=== PATIENT | male | born 1980 ===

== ENCOUNTER 2021-01-23 15:17 | Outpatient (REF) | payer OTHER, SELFPAY ==
[2021-01-23 15:41] LABS: MANUAL DIFF FLAG NO
[2021-01-23 16:15] LABS: Basophils Absolute Auto 0.1 X10*3/uL (0.0-0.2); Basophils Percent Auto 0.5 % (0-2); Eosinophils Absolute Auto 0.4 X10*3/uL (0.0-0.4); Eosinophils Percent Auto 3.7 % (0-4); Hematocrit 45.4 % (42.0-52.0); Hemoglobin 14.3 g/dl (14.0-18.0); Imm Gran Abs Auto 0.03 X10*3/uL (0.00-0.03); Imm Gran Pct Auto 0.3 % (0.0-0.4); Lymphocytes Absolute Auto 4.1 X10*3/uL (1.2-4.9); Lymphocytes Percent Auto 43.1 % (20-40); Mean Corpuscular HGB Conc 31.5 g/dl (31.0-36.0); Mean Corpuscular Hemoglobin 25.8 pg (27.0-33.0); Mean Corpuscular Volume 81.8 fL (80.0-98.0); Mean Platelet Volume 11.7 fL (9.4-12.4); Monocytes Percent Auto 10.8 % (2-11); Neutrophils Percent Auto 41.6 % (45-73); Platelet Count 186 X10*3/uL (160-400); Red Blood Count 5.55 X10*6/uL (4.60-5.80); Red Cell Distribution Width 13.2 % (11.0-16.0); White Blood Count 9.6 X10*3/uL (4.8-10.8)
[2021-01-23 16:20] LABS: Appearance Urine HAZY; Color Urine YELLOW; Glucose Urine UA NEG (NEG); Leukocyte Esterase Urine NEG (NEG); Nitrite Urine NEG (NEG); UACC Culture Trigger NO; Urine Blood TRACE (NEG); Urine Ketones NEG (NEG); Urine Protein NEG (NEG-TRACE)
[2021-01-23 16:30] LABS: Bacteria Urine TRACE /LPF; RBC Urine 0-2 /HPF (0); WBC Urine 0 /HPF (0-4)
[2021-01-23 16:42] LABS: Estimated Average Glucose 151 mg/dL; Hemoglobin A1c % 6.9 %
[2021-01-23 16:50] LABS: Alanine Aminotransferase 48 U/L (0-40); Albumin Level 4.2 g/dL (3.5-5.0); Alkaline Phosphatase 87 U/L (39-117); Aspartate Amino Transferase 37 U/L (5-37); Bilirubin Total 0.4 mg/dL (0.0-1.0); Blood Urea Nitrogen 7 mg/dL (9-16); C Reactive Protein 1.04 mg/dL (< or = 0.50); Calcium 9.5 mg/dL (8.4-10.2); Cholesterol 156 mg/dL; Estimated Glomerular Filt Rate > 60; Glucose Fasting 105 mg/dL (60-99); HDL Cholesterol 30 mg/dL; LDL Cholesterol Calculated 93 mg/dl; Total Protein 7.7 g/dL (6.5-8.0); Triglycerides 169 mg/dL
[2021-01-23 17:00] LABS: Anion Gap 14 (12-20); Carbon Dioxide 26 mmol/L (22-29); Chloride 103 mmol/L (96-108); Erythrocyte Sedimentation Rate 9 MM/HR (0-15); Potassium 4.1 mmol/L (3.3-5.1); Sodium 139 mmol/L (135-145)
[2021-01-23 17:05] LABS: TSH reflex Free T4 1.64 uIU/mL (0.32-4.0); Vitamin D 25-OH Total 6.5 ng/mL (>30)
== END 2021-01-23 15:18 | disposition home or self-care (01) ==
LOC: HO.LAB 15:17
PROVIDERS: PCP Internal Medicine; Visit Provider Internal Medicine
DX: M19.90 Unspecified osteoarthritis, unspecified site (principal); M51.06 Intervertebral disc disorders with myelopathy, lumbar region; R60.0 Localized edema; I10 Essential (primary) hypertension; E78.00 Pure hypercholesterolemia, unspecified; R73.01 Impaired fasting glucose; E55.9 Vitamin D deficiency, unspecified
CPT/HCPCS: 36415; 80053; 80061; 81001; 82306; 83036; 84443; 85025; 85652; 86140

== ENCOUNTER 2021-05-24 14:12 | Outpatient (REF) | payer OTHER, SELFPAY ==
[2021-05-24 14:30] LABS: MANUAL DIFF FLAG NO
[2021-05-24 14:56] LABS: Basophils Absolute Auto 0.1 X10*3/uL (0.0-0.2); Basophils Percent Auto 0.6 % (0-2); Eosinophils Absolute Auto 0.3 X10*3/uL (0.0-0.4); Eosinophils Percent Auto 3.1 % (0-4); Hematocrit 44.1 % (42.0-52.0); Hemoglobin 13.9 g/dl (14.0-18.0); Imm Gran Abs Auto 0.08 X10*3/uL (0.00-0.03); Imm Gran Pct Auto 0.8 % (0.0-0.4); Lymphocytes Absolute Auto 4.8 X10*3/uL (1.2-4.9); Lymphocytes Percent Auto 45.3 % (20-40); Mean Corpuscular HGB Conc 31.5 g/dl (31.0-36.0); Mean Corpuscular Hemoglobin 26.1 pg (27.0-33.0); Mean Corpuscular Volume 82.7 fL (80.0-98.0); Mean Platelet Volume 11.3 fL (9.4-12.4); Monocytes Absolute Auto 1.1 X10*3/uL (0.1-1.2); Neutrophils Absolute Auto 4.3 x10*3/uL (2.0-8.3); Neutrophils Percent Auto 40.2 % (45-73); Platelet Count 200 X10*3/uL (160-400); Red Blood Count 5.33 X10*6/uL (4.60-5.80); White Blood Count 10.6 X10*3/uL (4.8-10.8)
[2021-05-24 15:05] LABS: Estimated Average Glucose 154 mg/dL
[2021-05-24 15:28] LABS: Alanine Aminotransferase 43 U/L (0-40); Alkaline Phosphatase 81 U/L (39-117); Anion Gap 12 (12-20); Aspartate Amino Transferase 29 U/L (5-37); Bilirubin Total 0.2 mg/dL (0.0-1.0); Blood Urea Nitrogen 8 mg/dL (9-16); Calcium 9.1 mg/dL (8.4-10.2); Carbon Dioxide 29 mmol/L (22-29); Chloride 102 mmol/L (96-108); Cholesterol 160 mg/dL; Estimated Glomerular Filt Rate > 60; Glucose Fasting 115 mg/dL (60-99); HDL Cholesterol 30 mg/dL; LDL Cholesterol Calculated 82 mg/dl; Potassium 4.5 mmol/L (3.3-5.1); Sodium 138 mmol/L (135-145); Total Protein 7.4 g/dL (6.5-8.0); Triglycerides 243 mg/dL
[2021-05-24 15:29] LABS: Erythrocyte Sedimentation Rate 7 MM/HR (0-15)
[2021-05-24 15:52] LABS: TSH reflex Free T4 1.71 uIU/mL (0.32-4.0)
== END 2021-05-24 14:13 | disposition home or self-care (01) ==
LOC: HO.LAB 14:12
PROVIDERS: PCP Internal Medicine; Visit Provider Internal Medicine
DX: E11.9 Type 2 diabetes mellitus without complications (principal); E78.00 Pure hypercholesterolemia, unspecified; I10 Essential (primary) hypertension; E55.9 Vitamin D deficiency, unspecified; M19.91 Primary osteoarthritis, unspecified site; M51.36 Other intervertebral disc degeneration, lumbar region
CPT/HCPCS: 36415; 80053; 80061; 82306; 83036; 84443; 85025; 85652

== ENCOUNTER 2021-05-27 14:18 | Outpatient (REF) | payer OTHER, SELFPAY ==
[2021-05-27 15:09] LABS: Creatinine Urine 156.06 mg/dL; Microalbum/Creatinine Ratio Ur 3.2 ug/mg cr
[2021-05-27 15:54] LABS: Appearance Urine CLEAR; Color Urine YELLOW; Glucose Urine UA NEG (NEG); Leukocyte Esterase Urine NEG (NEG); Nitrite Urine NEG (NEG); Specific Gravity - Urine 1.025 (1.005-1.025); Urine Blood NEG (NEG); Urine Ketones NEG (NEG); Urine Protein NEG (NEG-TRACE)
== END 2021-05-27 14:19 | disposition home or self-care (01) ==
LOC: HO.LNP 14:18
PROVIDERS: Visit Provider Internal Medicine
DX: I10 Essential (primary) hypertension (principal); E11.9 Type 2 diabetes mellitus without complications
CPT/HCPCS: 81003; 82043

== ENCOUNTER 2021-08-28 13:51 | Outpatient (REF) | payer OTHER, SELFPAY ==
[2021-08-28 14:02] LABS: MANUAL DIFF FLAG NO
[2021-08-28 14:56] LABS: Basophils Absolute Auto 0.1 X10*3/uL (0.0-0.2); Basophils Percent Auto 0.6 % (0-2); Eosinophils Absolute Auto 0.3 X10*3/uL (0.0-0.4); Eosinophils Percent Auto 2.2 % (0-4); Hematocrit 43.4 % (42.0-52.0); Hemoglobin 13.7 g/dl (14.0-18.0); Imm Gran Abs Auto 0.07 X10*3/uL (0.00-0.03); Imm Gran Pct Auto 0.6 % (0.0-0.4); Lymphocytes Absolute Auto 4.9 X10*3/uL (1.2-4.9); Lymphocytes Percent Auto 42.1 % (20-40); Mean Corpuscular HGB Conc 31.6 g/dl (31.0-36.0); Mean Corpuscular Hemoglobin 25.5 pg (27.0-33.0); Mean Corpuscular Volume 80.7 fL (80.0-98.0); Mean Platelet Volume 11.3 fL (9.4-12.4); Monocytes Percent Auto 8.5 % (2-11); Neutrophils Absolute Auto 5.4 x10*3/uL (2.0-8.3); Platelet Count 190 X10*3/uL (160-400); Red Blood Count 5.38 X10*6/uL (4.60-5.80); Red Cell Distribution Width 13.2 % (11.0-16.0); White Blood Count 11.7 X10*3/uL (4.8-10.8)
[2021-08-28 15:08] LABS: Estimated Average Glucose 209 mg/dL; Hemoglobin A1c % 8.9 %
[2021-08-28 15:22] LABS: Alanine Aminotransferase 73 U/L (0-40); Albumin Level 4.2 g/dL (3.5-5.0); Alkaline Phosphatase 90 U/L (39-117); Anion Gap 14 (12-20); Aspartate Amino Transferase 48 U/L (5-37); Bilirubin Total 0.4 mg/dL (0.0-1.0); Blood Urea Nitrogen 15 mg/dL (9-16); Calcium 9.5 mg/dL (8.4-10.2); Carbon Dioxide 28 mmol/L (22-29); Chloride 98 mmol/L (96-108); Cholesterol 156 mg/dL; Estimated Glomerular Filt Rate > 60; Glucose Fasting 155 mg/dL (60-99); HDL Cholesterol 34 mg/dL; LDL Cholesterol Calculated 89 mg/dl; Potassium 4.4 mmol/L (3.3-5.1); Sodium 136 mmol/L (135-145); Total Protein 7.9 g/dL (6.5-8.0); Triglycerides 167 mg/dL
[2021-08-28 17:48] LABS: Vitamin D 25-OH Total 14.3 ng/mL (>30)
== END 2021-08-28 13:52 | disposition home or self-care (01) ==
LOC: HO.LAB 13:51
PROVIDERS: PCP Internal Medicine; Visit Provider Internal Medicine
DX: E11.9 Type 2 diabetes mellitus without complications (principal); I10 Essential (primary) hypertension; E78.00 Pure hypercholesterolemia, unspecified; E55.9 Vitamin D deficiency, unspecified
CPT/HCPCS: 36415; 80053; 80061; 82306; 83036; 84443; 85025

== ENCOUNTER 2022-05-14 10:54 | Outpatient (REF) | payer OTHER, SELFPAY ==
[2022-05-14 11:46] LABS: Appearance Urine Clear; Color Urine Yellow; Glucose Urine UA Negative (Negative); Leukocyte Esterase Urine Negative (Negative); Nitrite Urine Negative (Negative); PH 5.5 (5.0-9.0); Urine Blood Negative (Negative); Urine Ketones Negative (Negative); Urine Protein Negative (Neg-Trace)
[2022-05-14 12:04] LABS: Basophils Absolute Auto 0.1 X10*3/uL (0.0-0.2); Basophils Percent Auto 0.9 % (0-2); Eosinophils Absolute Auto 0.2 X10*3/uL (0.0-0.4); Hematocrit 47.7 % (42.0-52.0); Hemoglobin 14.8 g/dl (14.0-18.0); Imm Gran Abs Auto 0.05 X10*3/uL (0.00-0.03); Imm Gran Pct Auto 0.5 % (0.0-0.4); Lymphocytes Percent Auto 47.4 % (20-40); MANUAL DIFF FLAG SCAN; Mean Corpuscular Hemoglobin 25.1 pg (27.0-33.0); Mean Corpuscular Volume 80.8 fL (80.0-98.0); Mean Platelet Volume 11.8 fL (9.4-12.4); Monocytes Absolute Auto 1.1 X10*3/uL (0.1-1.2); Monocytes Percent Auto 10.2 % (2-11); Neutrophils Absolute Auto 4.1 x10*3/uL (2.0-8.3); Platelet Count 194 X10*3/uL (160-400); Red Cell Distribution Width 14.7 % (11.0-16.0); SCAN SMEAR FLAG 1; White Blood Count 10.6 X10*3/uL (4.8-10.8)
[2022-05-14 12:13] LABS: Creatinine Urine 71.78 mg/dL; Microalbum/Creatinine Ratio Ur 96.1 ug/mg cr
[2022-05-14 12:48] LABS: SLIDE REVIEW VERIFIED
[2022-05-14 12:51] LABS: Estimated Average Glucose 148 mg/dL; Hemoglobin A1c % 6.8 %
[2022-05-14 12:55] LABS: Alanine Aminotransferase 28 U/L (0-40); Albumin Level 4.4 g/dL (3.5-5.0); Alkaline Phosphatase 71 U/L (39-117); Anion Gap 15 (12-20); Aspartate Amino Transferase 37 U/L (5-37); Bilirubin Total 0.4 mg/dL (0.0-1.0); Blood Urea Nitrogen 13 mg/dL (9-16); Calcium 9.3 mg/dL (8.4-10.2); Carbon Dioxide 27 mmol/L (22-29); Chloride 102 mmol/L (96-108); Cholesterol 142 mg/dL; Estimated Glomerular Filt Rate > 60; Glucose Fasting 107 mg/dL (60-99); HDL Cholesterol 30 mg/dL; LDL Cholesterol Calculated 74 mg/dl; Potassium 4.2 mmol/L (3.3-5.1); Sodium 140 mmol/L (135-145); Triglycerides 191 mg/dL
[2022-05-14 13:21] LABS: TSH reflex Free T4 3.05 uIU/mL (0.32-4.0); Vitamin D 25-OH Total 7.7 ng/mL (>30)
== END 2022-05-14 10:55 | disposition home or self-care (01) ==
LOC: HO.LAB 10:54
PROVIDERS: PCP Internal Medicine; Visit Provider Internal Medicine
DX: E55.9 Vitamin D deficiency, unspecified (principal); E78.00 Pure hypercholesterolemia, unspecified; E11.9 Type 2 diabetes mellitus without complications; R30.0 Dysuria; I10 Essential (primary) hypertension
CPT/HCPCS: 36415; 80053; 80061; 81003; 82043; 82306; 83036; 84443; 85025

== ENCOUNTER 2022-05-15 12:28 | Outpatient (REF) | payer OTHER, SELFPAY ==
--- NOTE | 2022-05-15 10:30 | EMG_ITS ---
Right tibial and peroneal motor studies were performed. Right sural and superficial peroneal sensory studies were performed and needle examination was performed. IMPRESSION: Moderately severe axonal sensory motor peripheral neuropathy. MD HALEIGH Bello/CULLEN / [id number]
== END 2022-05-15 12:29 | disposition home or self-care (01) ==
LOC: HO.NEURO 12:28
PROVIDERS: PCP Internal Medicine; Visit Provider Internal Medicine
DX: R20.2 Paresthesia of skin (principal)
CPT/HCPCS: 95885; 95908

== ENCOUNTER 2022-10-13 15:43 | Outpatient (REF) | payer OTHER, SELFPAY ==
--- NOTE | ~2022-10-13 | XR_ITS ---
EXAMINATION: XR LUMBOSACRAL SPINE CLINICAL INFORMATION: Low back pain COMPARISON: Previous lumbar spine MRI from 2017 and x-ray October 2014 TECHNIQUE: Three views of the lumbosacral spine. FINDINGS: Bone alignment is normal. No fracture or dislocation is seen. There is disc space narrowing at L4-L5 and L5-S1. There is degenerative spondylosis at L4-L5 and L5-S1. There is lower lumbar spine facet arthritis. XR/XR lumbar spine 2-3V IMPRESSION: Degenerative changes.
--- NOTE | ~2022-10-13 | XR_ITS ---
EXAMINATION: XR HIP, LEFT CLINICAL INFORMATION: Pain COMPARISON: None available. TECHNIQUE: Two views of the left hip. FINDINGS: No fracture. Alignment is anatomic. Hip joint space is maintained. Soft tissues are unremarkable. XR/XR hip LT min 2V IMPRESSION: Normal left hip.
[2022-10-13 16:00] LABS: MANUAL DIFF FLAG NO
[2022-10-13 16:51] LABS: Basophils Absolute Auto 0.1 X10*3/uL (0.0-0.2); Basophils Percent Auto 0.6 % (0-2); Eosinophils Absolute Auto 0.3 X10*3/uL (0.0-0.4); Eosinophils Percent Auto 3.2 % (0-4); Hematocrit 46.2 % (42.0-52.0); Hemoglobin 14.4 g/dl (14.0-18.0); Imm Gran Abs Auto 0.05 X10*3/uL (0.00-0.03); Imm Gran Pct Auto 0.5 % (0.0-0.4); Lymphocytes Absolute Auto 4.4 X10*3/uL (1.2-4.9); Mean Corpuscular HGB Conc 31.2 g/dl (31.0-36.0); Mean Corpuscular Hemoglobin 25.5 pg (27.0-33.0); Mean Corpuscular Volume 81.9 fL (80.0-98.0); Mean Platelet Volume 11.7 fL (9.4-12.4); Monocytes Absolute Auto 0.8 X10*3/uL (0.1-1.2); Monocytes Percent Auto 8.8 % (2-11); Neutrophils Absolute Auto 3.7 x10*3/uL (2.0-8.3); Neutrophils Percent Auto 39.9 % (45-73); Platelet Count 174 X10*3/uL (160-400); Red Blood Count 5.64 X10*6/uL (4.60-5.80); Red Cell Distribution Width 14.4 % (11.0-16.0); White Blood Count 9.3 X10*3/uL (4.8-10.8)
[2022-10-13 16:59] LABS: Estimated Average Glucose 151 mg/dL; Hemoglobin A1c % 6.9 % (<6.0)
[2022-10-13 17:39] LABS: Alanine Aminotransferase 46 U/L (0-40); Albumin Level 4.1 g/dL (3.5-5.0); Alkaline Phosphatase 65 U/L (39-117); Anion Gap 13 (12-20); Aspartate Amino Transferase 35 U/L (5-37); Bilirubin Total 0.5 mg/dL (0.0-1.0); Blood Urea Nitrogen 11 mg/dL (9-16); Calcium 9.6 mg/dL (8.4-10.2); Carbon Dioxide 31 mmol/L (22-29); Chloride 103 mmol/L (96-108); Cholesterol 136 mg/dL (<200); Estimated Glomerular Filt Rate > 60; Glucose Fasting 105 mg/dL (60-99); HDL Cholesterol 30 mg/dL (>40); LDL Cholesterol Calculated 81 mg/dL (<100); Potassium 4.1 mmol/L (3.3-5.1); Sodium 143 mmol/L (135-145); Total Protein 7.6 g/dL (6.5-8.0); Triglycerides 125 mg/dL (<150)
[2022-10-13 17:56] LABS: TSH reflex Free T4 1.72 uIU/mL (0.32-4.0)
[2022-10-13 18:05] LABS: Folate 13.6 ng/mL (> or = 4.0); Vitamin B12 1066 pg/mL (200-900)
== END 2022-10-13 15:44 | disposition home or self-care (01) ==
LOC: HO.LAB 15:43
PROVIDERS: PCP Internal Medicine; Visit Provider Internal Medicine
DX: M25.552 Pain in left hip (principal); M54.50 Low back pain, unspecified; E78.00 Pure hypercholesterolemia, unspecified; E11.9 Type 2 diabetes mellitus without complications; E53.8 Deficiency of other specified B group vitamins; E55.9 Vitamin D deficiency, unspecified; I10 Essential (primary) hypertension
CPT/HCPCS: 36415; 72100; 73502; 80053; 80061; 82306; 82607; 82746; 83036; 84443; 85025

== ENCOUNTER 2022-10-14 16:49 | Outpatient (AMB) | payer OTHER, SELFPAY ==
[2022-10-14 16:48] VITALS: BP 136/84; PULSE 99; O2SAT 95; BMI 53.2
--- NOTE | 2022-10-14 16:48 | A.OFFPC_ITS ---
Vital Signs 10/14/22 16:48 Height 5 ft 4 in Weight 310 lb 2 oz BMI 53.2 BP 136/84 Blood Pressure Location Lt brachial Position Sitting Pulse 99 Pulse Source Pulse Oximeter Pulse Oximetry (%) 95 Oxygen Delivery Method Room Air Intake Visit Reasons: lumbar DDD, OA, DM, hyperlipidemia, anxiety Deputy Chief Counsel Required: No Accompanied by: Self / Same As Patient Allergies acetaminophen [From TYLENOL] Allergy (Unknown, Verified 10/14/22 17:11) UPSET STOMACH naproxen Adverse Reaction (Unknown, Verified 10/14/22 17:11) stomach upset Medication List - Last Reconciled 10/14/22 by Carlos Alberto Patel MD alprazolam 1 mg PO TID PRN blood pressure kit-extra large As directed blood pressure monitor As directed blood sugar diagnostic (FreeStyle Lite Strips) USE TO TEST ONCE DAILY DIRECTED blood-glucose meter (FreeStyle Lite Meter kit) As directed cholecalciferol (vitamin D3) 100 mcg (2 x 50 mcg (2,000 unit)) PO DAILY 90 days escitalopram oxalate 20 mg PO DAILY lancets (FreeStyle Lancets) As directed lisinopril 20 mg PO DAILY 30 days metformin ER 500 mg PO DAILY 30 days oxycodone 15 mg PO Q8H PRN 14 days Tobacco use date assessed: 10/14/22 Dental Screening Dental Screen Date: 10/14/22 Did you have a dental visit in the last 12 months?: Yes Did you have a dental problem in the last 6 months where you did not have access to dental care?: No Was dental information given to patient?: Patient has dentist HPI lumbar DDD, OA, DM, hyperlipidemia, anxiety HPI Details Patient comes in today for his follow up visit States that he feels okay Continues to experience chronic low back pain and multiple joint pains involving his hips, knees and feet - states that his current Rx and his medical marijuana help keep his symptoms manageable He denies any headaches or dizziness Denies any chest pains, no increased SOB No nausea/vomiting, no abdominal pain No change in bowel habits noted Has gained a lot of weight again lately - he has gained back all of the weight that he lost at his last visit Also continues to experience recurrent tingling sensation and numbness in his feet; sometimes also has pain in his feet, especially at night Would like to know hos his NCV & EMG done a few months ago came out Had his follow up labs done yesterday - to discuss his results [facility] Medical History (Updated 10/14/22 @ 19:19 by Carlos Alberto Patel MD) Anxiety Benign essential hypertension Depression Drug-induced constipation Edema of both feet Hyperglycemia Impaired fasting glucose Insomnia Lumbar degenerative disc disease Lumbar disc herniation with myelopathy Lymphedema Medical marijuana use Mixed hyperlipidemia Morbid obesity with BMI of 50.0-59.9, adult Osteoarthritis Pain in both feet Peripheral neuropathy Smoker Vitamin D deficiency Surgical History History of appendectomy Family History Father Alive and well Mother COPD (chronic obstructive pulmonary disease) Brother Alive and well Social History Housing: Apartment Alcohol intake: current Alcohol intake frequency: holidays/special occasions only Patient Tobacco Use Status: Current everyday Tobacco user Cigarettes Per Day: 3 e-Cigarette/Vaping Use: Former Use Second Hand Smoke Exposure: Yes service: No Current occupational status: disabled Cognitive needs: No Hearing needs: No Vision needs: Yes Questionnaire PHQ-9 Over the last 2 weeks, how often have you been bothered by any of the following problems? 1. Little interest or pleasure in doing things: several days 2. Feeling down, depressed, or hopeless: several days 3. Trouble falling or staying asleep, or sleeping too much: several days 4. Feeling tired or having little energy: several days 5. Poor appetite or overeating: several days 6. Feeling bad about yourself - or that you are a failure or have let yourself or your family down: several days 7. Trouble concentrating on things, such as reading the newspaper or watching television: not at all 8. Moving or speaking so slowly that other people could have noticed. Or the opposite - being so fidgety or restless that you have been moving around a lot more than usual: not at all 9. Thoughts that you would be better off or of hurting yourself in some way: not at all Total score: 6 Depression Screening Interpretation: Positive Depression Screening Follow-up: Existing condition and In treatment 26279 - PHQ-9 Billing: Yes Source: Developed by Drs. Jay Valladares, Jens Canales and colleagues, with an educational ced from [employer]. Thrive Questionnaire Date Thrive assessed: 10/14/22 I am a: Patient What is your living situation today?: I have a steady place to live Within the past 12 months, did the food you bought not last and you didn't have the money to get more?: Never true Within the past 12 months, did you worry whether your food would run out before you got money to buy more?: Never true Do you have trouble paying for medicines?: No Do you have trouble getting transportation to medical appointments?: No Do you have trouble paying your heating and electricity bill?: No Do you have trouble taking care of your child, family member or friend?: No Do you have trouble with day-to-day activities such as bathing, preparing meals, shopping, managing finances, etc.?: No Are you currently unemployed and looking for a job?: No Are you interested in more education?: No Please select the resources that you would like help with: None Currently or been in a relationship where the following occur: no concerns reported AUDIT C Alcohol Use Questionnaire (AUDIT-C) 1. How often do you have a drink containing alcohol?: Never 3. How often do you have six or more drinks on one occasion?: Never Total Score: 0 Score Reviewed/Action Taken: Yes KELLY-7 AMB Questionnaire KELLY-7 Date KELLY - 7 assessed: 10/14/22 Feeling nervous, anxious, or on edge: 1 = Several days Not being able to stop or control worryin = Several days Worrying too much about different things: 0 = Not at all Trouble relaxin = Several days Being so restless that it is hard to sit still: 0 = Not at all Becoming easily annoyed or irritable: 1 = Several days Feeling afraid as if something awful might happen: 3 = Nearly every day Total KELLY-7 score (0-4 normal; 5-9 mild; 10-14 moderate; 15-21 severe): 7 Source: Developed by Nathalia Crowder Kurt Kroenke and colleagues, with an educational ced from [employer]. Review of Systems Const Reports fatigue, Denies fever(s) and Denies headache(s) ENT Denies dysphagia, Denies dizziness, Denies otalgia, Denies headache(s), Reports neck pain, Denies odynophagia and Denies sore throat Card Denies chest pain, Denies palpitations and Reports dyspnea on exertion (mild) Resp Denies chest congestion, Denies cough and Reports dyspnea on exertion (mild) GI Denies abdominal pain, Denies constipation, Denies dysphagia, Denies heartburn, Denies diarrhea, Denies nausea, Denies odynophagia and Denies vomiting Denies dysuria, Denies nocturia and Denies urinary frequency Musc Reports back pain (over the lumbar spine - chronic), Reports arthralgias (especially of the knees; increasing pain in left hip recently), Reports neck pain and Reports tingling (in both feet) Neuro Denies dizziness, Denies headache(s), Reports tingling (in both feet) and Reports paresthesias (in both feet) Endo Reports fatigue and Denies palpitations Thierry/Lymph Details: (+) recurrent swelling of both feet and ankles Physical exam (Primary Care) Vital Signs: Last Vital Signs Pulse 99 10/14/22 16:48 BP 136/84 10/14/22 16:48 Pulse Ox 95 10/14/22 16:48 Oxygen Delivery Method Room Air 10/14/22 16:48 BMI result Body Mass Index 53.2 Tobacco/Smoking Status: Tobacco use Status Tobacco use date assessed 10/14/22 10/14/22 16:53 Patient Tobacco Use Status Current everyday Tobacco 10/14/22 16:53 e-Cigarette/Vaping Use Former Use 10/14/22 16:53 PHQ-9: PHQ-9 Score PHQ-9: Total score 6 10/14/22 17:10 Depression Screening Interpretation: Positive Depression Screening Follow-up: Existing condition and In treatment Thrive Assessment: Date of Thrive Assessment Date Thrive assessed 10/14/22 10/14/22 16:53 Currently or been in a relationship where the following occur: no concerns reported Const General: no acute distress and alert HENMT Ears: TM's normal bilaterally and EAC's normal Throat: Yes posterior oropharynx normal and Yes tonsils normal (no TP congestion noted) Neck Neck: Yes no lymphadenopathy and Yes supple Resp Auscultation: clear to auscultation bilaterally, no rales and no wheezes Cardio Rate: regular rate Rhythm: regular rhythm Heart sounds: no murmurs GI Palpation (GI): Soft to palpation and nontender Auscultation: normal bowel sounds Back/Spine/Pelvis Cervical Spine: Cervical spine tenderness Thoracic/Lumbar Spine: lumbar spinal tenderness Skin Rashes: no rashes Extrem General: No clubbing, No cyanosis and Yes edema (2+ bilateral lower extremity edema) Left lower extremity: hip/thigh Details: tenderness Location: of the hip Results Reviewed Results Reviewed: Laboratory Tests 05/14/22 05/14/22 10/13/22 11:02 11:02 15:58 WBC 9.3 Hgb 14.4 Hct 46.2 Plt Count 174 Sodium Potassium Creatinine Estimated GFR Fasting Glucose Hemoglobin A1c % Calcium AST ALT Triglycerides Cholesterol LDL Cholesterol, Calc HDL Cholesterol 25-OH Vitamin D Total TSH Ur Specific [place] 1.010 Urine Protein Negative Urine Glucose (UA) Negative Urine Blood Negative Microalb/Creat Ratio 96.1 10/13/22 10/13/22 15:58 15:58 WBC Hgb Hct Plt Count Sodium 143 Potassium 4.1 Creatinine 0.82 Estimated GFR > 60 Fasting Glucose 105 H Hemoglobin A1c % 6.9 H Calcium 9.6 AST 35 ALT 46 H Triglycerides 125 Cholesterol 136 LDL Cholesterol, Calc 81 HDL Cholesterol 30 L 25-OH Vitamin D Total 18.0 TSH 1.72 Ur Specific [place] Urine Protein Urine Glucose (UA) Urine Blood Microalb/Creat Ratio Assessment and Plan Assessment & Plan (1) Mixed hyperlipidemia: Code(s): E78.2 - Mixed hyperlipidemia Plan: Results of his labs done yesterday reviewed and discussed with patient - his cholesterol levels have remained well-controlled Reinforced low cholesterol diet Will recheck labs in 3 months for follow-up (2) Diabetes mellitus: Code(s): E11.9 - Type 2 diabetes mellitus without complications Qualifiers: Diabetes mellitus complication status: with hyperglycemia 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 Diabetes mellitus type: type 2 Qualified Code(s): E11.65 - Type 2 diabetes mellitus with hyperglycemia Plan: HgbA1c was at 6.9% on his labs done yesterday (was at 6.8% a few months ago) - goal is <7.0% Reinforced diabetic diet/exercise as tolerated Continue Metformin ER 500 mg QD (3) Benign essential hypertension: Code(s): I10 - Essential (primary) hypertension Plan: Reinforced low-sodium diet - goal is systolic BP of 120 mm or less Continue Lisinopril 20 mg QD (4) Lumbar degenerative disc disease: Code(s): M51.36 - Other intervertebral disc degeneration, lumbar region Plan: Reinforced activity and weight-lifting restrictions MRI of the lumbar spine last done in January 2018 revealed (+) posterior disc protrusion/extrusion at L5-S1 impinging on both the right and left exiting L5 nerve roots (more on the right side); central and right paracentral disc protrusion extending behind the body of the L5 to the right of midline Repeat lumbar spine x-rays done yesterday revealed (+) multilevel degenerative changes in the lumbar spine Continue Oxycodone 15 mg every 8 hours PRN Patient continues to decline taking Gabapentin, which may help alleviate some of his chronic pain - states that he is on medical marijuana and this is already helping him slightly Used to go to [facility] and reportedly received a total of 8 injections into his lower back from Dr. Waller but has not gone back to see them in a few years - states that he did not want to continue getting injections into his lower back as they were not helping at all when he was getting them (5) Osteoarthritis: Code(s): M19.90 - Unspecified osteoarthritis, unspecified site Qualifiers: Osteoarthritis location: unspecified site Osteoarthritis type: primary Qualified Code(s): M19.91 - Primary osteoarthritis, unspecified site Plan: States that his current meds help with his symptoms Will consider referral to Orthopedics if his symptoms get worse Left hip x-rays done a few years ago in 2017 came out normal; repeat left hip x- rays done yesterday came out normal as well Advised that his hip pains may actually be referred pain from his lower back, in light of his normal hip x-rays (6) Drug-induced constipation: Code(s): K59.03 - Drug induced constipation Plan: Encouraged increased oral fluids and dietary fiber Continue OTC stool softeners PRN as he states that they have been helping him adequately so far (7) Vitamin D deficiency: Code(s): E55.9 - Vitamin D deficiency, unspecified Plan: Improving - continue Vitamin D3 2000 units QD (8) Peripheral neuropathy: Code(s): G62.9 - Polyneuropathy, unspecified Qualifiers: Peripheral neuropathy type: polyneuropathy, unspecified Qualified Code(s): G62.9 - Polyneuropathy, unspecified Plan: EMG & NCV done back in April 2022 revealed (+) moderately severe axonal sensory motor peripheral neuropathy Advised that there is no cure for neuropathy, which is practically end-stage nerve damage but there are medications we can start him on to help with his symptoms if needed, with Gabapentin being one of them Patient would like to hold off on taking these for now - states that he will call for Rx if he needs them (9) Lymphedema: Code(s): I89.0 - Lymphedema, not elsewhere classified Plan: Reminded to continue with leg elevation as often as he can to help minimize his edema; advised again that compression stockings/socks are also options that can help him and he can call for Rx if he is interested in trying these Reminded that his lymphedema is most likely related to his weight and his sedentary lifestyle, as his recent labs continue to show normal renal function (10) Pain in both feet: Code(s): M79.671 - Pain in right foot; M79.672 - Pain in left foot Plan: Follow up with podiatry as scheduled (11) Insomnia: Code(s): G47.00 - Insomnia, unspecified Qualifiers: Insomnia type: unspecified Qualified Code(s): G47.00 - Insomnia, unspecified Plan: Sleep hygiene reinforced (12) Anxiety: Code(s): F41.9 - Anxiety disorder, unspecified Plan: Continue Alprazolam 1 mg TID PRN - Rx is being prescribed and managed by psychiatry (13) Depression: Code(s): F32.9 - Major depressive disorder, single episode, unspecified Qualifiers: Active/Remission status: currently active Depression Type: major depressive disorder Major depression episode severity: unspecified Major depression recurrence: recurrent Qualified Code(s): F33.9 - Major depressive disorder, recurrent, unspecified Plan: Continue Escitalopram 20 mg QD Follow up with psychiatry as scheduled (14) Smoker: Code(s): F17.200 - Nicotine dependence, unspecified, uncomplicated Plan: Counseled again on smoking cessation (15) Medical marijuana use: Code(s): 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 Diabetes mellitus type: type 2 Benign essential hypertension I10 Lumbar degenerative disc disease M51.36 Osteoarthritis M19.91 Osteoarthritis location: unspecified site Osteoarthritis type: primary Drug-induced constipation K59.03 Vitamin D deficiency E55.9 Peripheral neuropathy G62.9 Peripheral neuropathy type: polyneuropathy, unspecified Lymphedema I89.0 Pain in both feet M79.671; M79.672 Insomnia G47.00 Insomnia type: unspecified Anxiety F41.9 Depression F33.9 Active/Remission status: currently active Depression Type: major depressive disorder Major depression episode severity: unspecified Major depression recurrence: recurrent Smoker F17.200 Medical marijuana use Z79.899 Morbid obesity with BMI of 50.0-59.9, adult E66.01; Z68.43
== END 2022-10-14 17:11 | disposition home or self-care (01) ==
PROVIDERS: PCP Internal Medicine; Visit Provider Internal Medicine
DX: E11.65 Type 2 diabetes mellitus with hyperglycemia (principal); I10 Essential (primary) hypertension; E55.9 Vitamin D deficiency, unspecified; F41.9 Anxiety disorder, unspecified; F33.9 Major depressive disorder, recurrent, unspecified; F17.200 Nicotine dependence, unspecified, uncomplicated; Z79.899 Other long term (current) drug therapy; E66.01 Morbid (severe) obesity due to excess calories; Z68.43 Body mass index [BMI] 50.0-59.9, adult; E78.2 Mixed hyperlipidemia; M51.36 Other intervertebral disc degeneration, lumbar region; M19.91 Primary osteoarthritis, unspecified site
CPT/HCPCS: 99214

== ENCOUNTER 2023-06-05 15:43 | Outpatient (AMB) | payer OTHER, SELFPAY ==
--- NOTE | 2023-06-05 15:56 | A.OFFPC_ITS ---
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 Accompanied by: Self / Same As Patient Allergies acetaminophen [From TYLENOL] Allergy (Unknown, Verified 06/05/23 16:28) UPSET STOMACH naproxen Adverse Reaction (Unknown, Verified 06/05/23 16:28) stomach upset Medication List - Last Reconciled 06/05/23 by Carlos Alberto Patel MD alprazolam 1 mg PO TID PRN blood pressure kit-extra large As directed blood pressure monitor As directed blood sugar diagnostic (FreeStyle Lite Strips) USE TO TEST ONCE DAILY DIRECTED blood-glucose meter (FreeStyle Lite Meter kit) As directed cholecalciferol (vitamin D3) 100 mcg (2 x 50 mcg (2,000 unit)) PO DAILY 90 days escitalopram oxalate 20 mg PO DAILY lancets (FreeStyle Lancets) As directed lisinopril 20 mg PO DAILY 30 days metformin ER 500 mg PO DAILY 90 days oxycodone 15 mg PO Q8H PRN 14 days Tobacco use date assessed: 06/05/23 Dental Screening Dental Screen Date: 06/05/23 Did you have a dental visit in the last 12 months?: Yes Did you have a dental problem in the last 6 months where you did not have access to dental care?: No Was dental information given to patient?: Patient has dentist HPI 3 month f/u rescheduled HPI Details Patient comes in today for his follow up visit - was last seen in September 2022 He also has not had any follow up labs done since September 2022 Patient states that he currently feels okay Admits that he has not been compliant with his diet lately due to increased stress and anxiety He denies any headaches or dizziness Denies any chest pains, no increased shortness of breath No nausea /vomiting, no abdominal pain No change in bowel habits noted States that he is still experiencing frequent numbness tingling sensation in his legs and feet and would like to know how his nerve conduction test came out States that his chronic joint pains and low back pain remained adequately controlled on his current medications and needs his pain medicine and Lisinopril Rx refilled PFSH Medical History Peripheral neuropathy Pain in both feet Lymphedema Impaired fasting glucose Edema of both feet Morbid obesity with BMI of 50.0-59.9, adult Medical marijuana use Smoker Depression Insomnia Vitamin D deficiency Drug-induced constipation Osteoarthritis Hyperglycemia Benign essential hypertension Mixed hyperlipidemia Lumbar disc herniation with myelopathy Lumbar degenerative disc disease Anxiety Surgical History History of appendectomy Family History Father Alive and well Mother COPD (chronic obstructive pulmonary disease) Brother Alive and well Social History Housing: Apartment Alcohol intake: current Alcohol intake frequency: holidays/special occasions only Patient Tobacco Use Status: Current everyday Tobacco user Cigarettes Per Day: 2 e-Cigarette/Vaping Use: Former Use Second Hand Smoke Exposure: Yes service: No Current occupational status: disabled Cognitive needs: No Hearing needs: No Vision needs: Yes Questionnaire PHQ-9 Over the last 2 weeks, how often have you been bothered by any of the following problems? 1. Little interest or pleasure in doing things: nearly every day 2. Feeling down, depressed, or hopeless: nearly every day 3. Trouble falling or staying asleep, or sleeping too much: nearly every day 4. Feeling tired or having little energy: nearly every day 5. Poor appetite or overeating: more than half the days 6. Feeling bad about yourself - or that you are a failure or have let yourself or your family down: nearly every day 7. Trouble concentrating on things, such as reading the newspaper or watching television: nearly every day 8. Moving or speaking so slowly that other people could have noticed. Or the opposite - being so fidgety or restless that you have been moving around a lot more than usual: more than half the days 9. Thoughts that you would be better off or of hurting yourself in some way: several days Total score: 23 Depression Screening Interpretation: Positive Depression Screening Follow-up: Existing condition and In treatment Depression Screening Done: Yes 03332 - PHQ-9 Billing: Yes Source: Developed by Drs. Jay Valladares, Nathalia Smith, Jens Elder and colleagues, with an educational ced from [employer]. Thrive Questionnaire Date Thrive assessed: 06/05/23 I am a: Patient What is your living situation today?: I have a steady place to live Within the past 12 months, did the food you bought not last and you didn't have the money to get more?: Never true Within the past 12 months, did you worry whether your food would run out before you got money to buy more?: Never true Do you have trouble paying for medicines?: No Do you have trouble getting transportation to medical appointments?: No Do you have trouble paying your heating and electricity bill?: No Do you have trouble taking care of your child, family member or friend?: No Do you have trouble with day-to-day activities such as bathing, preparing meals, shopping, managing finances, etc.?: No Are you currently unemployed and looking for a job?: No Are you interested in more education?: No Please select the resources that you would like help with: None Currently or been in a relationship where the following occur: no concerns reported THRIVE Score: 0 AUDIT C Alcohol Use Questionnaire (AUDIT-C) 1. How often do you have a drink containing alcohol?: Monthly or less 2. How many drinks containing alcohol do you have on a typical day when you are drinking?: 3 or 4 3. How often do you have six or more drinks on one occasion?: Less than monthly Total Score: 3 Score Reviewed/Action Taken: Yes KELLY-7 AMB Questionnaire KELLY-7 Date KELLY - 7 assessed: 06/05/23 Feeling nervous, anxious, or on edge: 3 = Nearly every day Not being able to stop or control worryin = More than half the days Worrying too much about different things: 3 = Nearly every day Trouble relaxin = More than half the days Being so restless that it is hard to sit still: 2 = More than half the days Becoming easily annoyed or irritable: 1 = Several days Feeling afraid as if something awful might happen: 2 = More than half the days Total KELLY-7 score (0-4 normal; 5-9 mild; 10-14 moderate; 15-21 severe): 15 Source: Developed by Drs. Jay Valladares, Nathalia Smith, Jens Elder and colleagues, with an educational ced from [employer]. KELLY-7 Assessment Billing KELLY-7 Assessment Tool: KELLY-7 Assessment 56917 Review of Systems Const Denies chills, Reports fatigue, Denies fever(s) and Denies headache(s) ENT Denies dysphagia, Denies dizziness, Denies otalgia, Denies headache(s), Reports neck pain, Denies odynophagia and Denies sore throat Card Denies chest pain, Denies palpitations and Reports dyspnea on exertion (mild) Resp Denies chest congestion, Denies cough and Reports dyspnea on exertion (mild) GI Denies abdominal pain, Denies constipation, Denies dysphagia, Denies heartburn, Denies diarrhea, Denies nausea, Denies odynophagia and Denies vomiting Denies dysuria, Denies nocturia and Denies urinary frequency Musc Reports back pain (over the lumbar spine - chronic), Reports arthralgias (especially of the knees; increasing pain in left hip recently), Reports neck pain and Reports tingling (in both feet) Neuro Denies dizziness, Denies headache(s), Reports tingling (in both feet) and Reports paresthesias (in both feet) Endo Reports fatigue and Denies palpitations Thierry/Lymph Details: (+) recurrent swelling of both feet and ankles Physical exam (Primary Care) Vital Signs: Last Vital Signs Pulse 120 H 06/05/23 15:58 BP 102/78 06/05/23 15:58 Pulse Ox 95 06/05/23 15:58 Oxygen Delivery Method Room Air 06/05/23 15:58 BMI result Body Mass Index 51.9 Tobacco/Smoking Status: Tobacco use Status Tobacco use date assessed 06/05/23 06/05/23 16:18 Patient Tobacco Use Status Current everyday Tobacco 06/05/23 15:57 e-Cigarette/Vaping Use Former Use 06/05/23 15:57 PHQ-9: PHQ-9 Score PHQ-9: Total score 23 06/05/23 16:29 Depression Screening Interpretation: Positive Depression Screening Follow-up: Existing condition and In treatment Thrive Assessment: Date of Thrive Assessment Date Thrive assessed 06/05/23 06/05/23 16:10 Currently or been in a relationship where the following occur: no concerns reported Const General: no acute distress and alert HENMT Ears: TM's normal bilaterally and EAC's normal Throat: Yes posterior oropharynx normal and Yes tonsils normal (no TP congestion noted) Neck Neck: Yes no lymphadenopathy and Yes supple Resp Auscultation: clear to auscultation bilaterally, no rales and no wheezes Cardio Rate: regular rate Rhythm: regular rhythm Heart sounds: no murmurs GI Palpation (GI): Soft to palpation and nontender Auscultation: normal bowel sounds Back/Spine/Pelvis Cervical Spine: Cervical spine tenderness Thoracic/Lumbar Spine: lumbar spinal tenderness Skin Rashes: no rashes Extrem General: No clubbing, No cyanosis and Yes edema (2+ bilateral lower extremity edema) Left lower extremity: hip/thigh Details: tenderness Location: of the hip Assessment and Plan Assessment & Plan (1) Mixed hyperlipidemia: Code(s): E78.2 - Mixed hyperlipidemia Plan: As patient has not had any follow-up labs done since last year, he is instructed to get his fasting labs done JESSICA Reinforced low cholesterol diet Will recheck his labs and fasting lipids again in 3 months for follow-up (2) Diabetes mellitus: Code(s): E11.9 - Type 2 diabetes mellitus without complications Qualifiers: Diabetes mellitus complication status: with hyperglycemia Diabetes mellitus intermodal customer service insulin use: without prison use Diabetes mellitus type: type 2 Qualified Code(s): E11.65 - Type 2 diabetes mellitus with hyperglycemia Plan: His in-office HgbA1c done today is at 11.1% (HgbA1c was at 6.9% when last checked in September 2022) - goal is <7.0% Reinforced diabetic diet/exercise as tolerated Will increase his Metformin ER 500 mg to BID dosing (3) Benign essential hypertension: Code(s): I10 - Essential (primary) hypertension Plan: Reinforced low-sodium diet - goal is systolic BP of 120 mm or less Continue Lisinopril 20 mg QD (4) Lumbar degenerative disc disease: Code(s): M51.36 - Other intervertebral disc degeneration, lumbar region Plan: Reinforced activity and weight-lifting restrictions MRI of the lumbar spine last done in January 2018 revealed (+) posterior disc protrusion/extrusion at L5-S1 impinging on both the right and left exiting L5 nerve roots (more on the right side); central and right paracentral disc protrusion extending behind the body of the L5 to the right of midline Repeat lumbar spine x-rays done yesterday revealed (+) multilevel degenerative changes in the lumbar spine Continue Oxycodone 15 mg every 8 hours PRN Patient continues to decline taking Gabapentin, which may help alleviate some of his chronic pain - states that he is on medical marijuana and this is already helping him slightly Used to go to [facility] and reportedly received a total of 8 injections into his lower back from Dr. Waller but has not gone back to see them in a few years - states that he did not want to continue getting injections into his lower back as they were not helping at all when he was getting them (5) Osteoarthritis: Code(s): M19.90 - Unspecified osteoarthritis, unspecified site Qualifiers: Osteoarthritis location: unspecified site Osteoarthritis type: primary Qualified Code(s): M19.91 - Primary osteoarthritis, unspecified site Plan: States that his current meds help with his symptoms Will consider referral to Orthopedics if his symptoms get worse Left hip x-rays done a few years ago in 2017 came out normal; repeat left hip x- rays done yesterday came out normal as well Advised that his hip pains may actually be referred pain from his lower back, in light of his normal hip x-rays (6) Drug-induced constipation: Code(s): K59.03 - Drug induced constipation Plan: Encouraged increased oral fluids and dietary fiber Continue OTC stool softeners PRN as he states that they have been helping him adequately so far (7) Vitamin D deficiency: Code(s): E55.9 - Vitamin D deficiency, unspecified Plan: Improving - continue Vitamin D3 2000 units QD (8) Peripheral neuropathy: Code(s): G62.9 - Polyneuropathy, unspecified Qualifiers: Peripheral neuropathy type: polyneuropathy, unspecified Qualified Code(s): G62.9 - Polyneuropathy, unspecified Plan: EMG & NCV done back in April 2022 revealed (+) moderately severe axonal sensory motor peripheral neuropathy Have reminded patient that this was discussed with him at his last visit that neuropathy is technically end-stage nerve damage and that there is no cure for neuropathy but there are medications we can help make his symptoms more tolerable, with Gabapentin being one of them Patient previously asked to hold off on Rx but is now willing to try them - will start him on Gabapentin 100 mg Q HS He is advised again that better control of her blood sugar will help slow down the progression of his symptoms of neuropathy (9) Lymphedema: Code(s): I89.0 - Lymphedema, not elsewhere classified Plan: Reminded patient to continue with leg elevation as often as he can to help minimize his edema; advised again that compression stockings/socks are also options that can help him and he can call for Rx if he is interested in trying these Reminded that his lymphedema is most likely related to his weight and his sedentary lifestyle, as his recent labs continue to show normal renal function (10) Insomnia: Code(s): G47.00 - Insomnia, unspecified Qualifiers: Insomnia type: unspecified Qualified Code(s): G47.00 - Insomnia, unspecified Plan: Sleep hygiene reinforced (11) Anxiety: Code(s): F41.9 - Anxiety disorder, unspecified Plan: Continue Alprazolam 1 mg TID PRN - Rx is being prescribed and managed by psychiatry (12) Depression: Code(s): F32.9 - Major depressive disorder, single episode, unspecified Qualifiers: Active/Remission status: currently active Depression Type: major depressive disorder Major depression episode severity: unspecified Major depression recurrence: recurrent Qualified Code(s): F33.9 - Major depressive disorder, recurrent, unspecified Plan: Continue Escitalopram 20 mg QD Follow up with psychiatry as scheduled (13) Smoker: Code(s): F17.200 - Nicotine dependence, unspecified, uncomplicated Plan: Counseled again on smoking cessation (14) Medical marijuana use: Code(s): Z79.899 - Other prison (current) drug therapy Plan: Medical Marijuana card is on file (15) Morbid obesity with BMI of 50.0-59.9, adult: Code(s): E66.01 - Morbid (severe) obesity due to excess calories; Z68.43 - Body mass index [BMI] 50.0-59.9, adult Plan: Reinforced diet; exercise and weight loss are likely unrealistic in this patient due to his multiple comorbidities and physical condition He also has not shown any consistent motivation at all to lose weight in the past Plan Follow up in 3 months Orders: Orders AMB Hemoglobin A1c 06/05/23 E11.65 - Type 2 diabetes mellitus with hyperglycemia Complete Blood Count Auto Diff 06/05/23 D64.9 - Anemia, unspecified [place]. Panel Fast 06/05/23 E78.00 - Pure hypercholesterolemia, unspecified UA CC w/rflx Micro + Cult 06/05/23 R30.0 - Dysuria Microalbumin, Random (w Creat) 06/05/23 E11.9 - Type 2 diabetes mellitus without complications Complete Blood Count Auto Diff 3 Months D64.9 - Anemia, unspecified Lipid Panel 3 Months E78.00 - Pure hypercholesterolemia, unspecified Hemoglobin A1c 3 Months E11.9 - Type 2 diabetes mellitus without complications Lipid Panel 06/05/23 E78.00 - Pure hypercholesterolemia, unspecified TSH reflex Free T4 06/05/23 E78.00 - Pure hypercholesterolemia, unspecified Vitamin D 25-OH Total 06/05/23 E55.9 - Vitamin D deficiency, unspecified [place]. Panel Fast 3 Months E78.00 - Pure hypercholesterolemia, unspecified Microalbumin, Random (w Creat) 3 Months E11.9 - Type 2 diabetes mellitus without complications TSH reflex Free T4 3 Months E78.00 - Pure hypercholesterolemia, unspecified UA CC w/rflx Micro + Cult 3 Months R30.0 - Dysuria Vitamin D 25-OH Total 3 Months E55.9 - Vitamin D deficiency, unspecified Medications: New gabapentin 100 mg PO BEDTIME 90 days 90 caps 0RF Changed From oxycodone Will NOT REFILL medication anymore if patient does not keep his appointment on 06/05/2023 15 mg PO Q8H 14 days PRN 42 tabs 0RF pain M51.06 - Intervertebral disc disorders with myelopathy, lumbar region To oxycodone 15 mg PO Q8H 14 days PRN 42 tabs 0RF severe pain M51.06 - Intervertebral disc disorders with myelopathy, lumbar region From metformin ER 500 mg PO DAILY 90 days 90 tabs 1RF E11.65 - Type 2 diabetes mellitus with hyperglycemia To metformin ER 500 mg PO BID 90 days 180 tabs 1RF E11.65 - Type 2 diabetes mellitus with hyperglycemia From lisinopril 20 mg PO DAILY 30 days 30 tabs 3RF I10 - Essential (primary) hypertension To lisinopril 20 mg PO DAILY 90 days 90 tabs 1RF I10 - Essential (primary) hypertension Coding Level of Care Code Est Pt Level 4 (24363) Diagnoses Mixed hyperlipidemia E78.2 Type 2 diabetes mellitus with hyperglycemia, without long-term current use of insulin E11.65 Diabetes mellitus complication status: with hyperglycemia Diabetes mellitus intermodal customer service insulin use: without prison use Diabetes mellitus type: type 2 Benign essential hypertension I10 Lumbar degenerative disc disease M51.36 Primary osteoarthritis, unspecified site M19.91 Osteoarthritis location: unspecified site Osteoarthritis type: primary Drug-induced constipation K59.03 Vitamin D deficiency E55.9 Peripheral polyneuropathy G62.9 Peripheral neuropathy type: polyneuropathy, unspecified Lymphedema I89.0 Insomnia, unspecified type G47.00 Insomnia type: unspecified Anxiety F41.9 Episode of recurrent major depressive disorder, unspecified depression episode severity F33.9 Active/Remission status: currently active Depression Type: major depressive disorder Major depression episode severity: unspecified Major depression recurrence: recurrent Smoker F17.200 Medical marijuana use Z79.899 Morbid obesity with BMI of 50.0-59.9, adult E66.01; Z68.43 Additional Codes KELLY-7 Assessment Billing - KELLY-7 Assessment Tool: KELLY-7 Assessment [id number] ([id number])
[2023-06-05 15:58] VITALS: BP 102/78; PULSE 120; O2SAT 95; BMI 51.9
== END 2023-06-05 16:42 | disposition home or self-care (01) ==
PROVIDERS: PCP Internal Medicine; Visit Provider Internal Medicine
DX: E11.65 Type 2 diabetes mellitus with hyperglycemia (principal)
CPT/HCPCS: 83036; 99214

== ENCOUNTER 2023-09-03 12:53 | Outpatient (REF) | payer OTHER, SELFPAY ==
[2023-09-03 13:25] LABS: Basophils Absolute Auto 0.1 X10*3/uL (0.0-0.2); Basophils Percent Auto 0.7 % (0-2); Eosinophils Absolute Auto 0.2 X10*3/uL (0.0-0.4); Eosinophils Percent Auto 1.4 % (0-4); Hematocrit 48.6 % (42.0-52.0); Hemoglobin 15.3 g/dl (14.0-18.0); Imm Gran Pct Auto 0.7 % (0.0-0.4); Lymphocytes Absolute Auto 6.9 X10*3/uL (1.2-4.9); Lymphocytes Percent Auto 46.7 % (20-40); MANUAL DIFF FLAG SCAN; Mean Corpuscular HGB Conc 31.5 g/dl (31.0-36.0); Mean Corpuscular Hemoglobin 25.6 pg (27.0-33.0); Mean Corpuscular Volume 81.3 fL (80.0-98.0); Mean Platelet Volume 10.9 fL (9.4-12.4); Monocytes Absolute Auto 1.3 X10*3/uL (0.1-1.2); Monocytes Percent Auto 8.8 % (2-11); Neutrophils Absolute Auto 6.1 x10*3/uL (2.0-8.3); Neutrophils Percent Auto 41.7 % (45-73); Platelet Count 214 X10*3/uL (160-400); Red Blood Count 5.98 X10*6/uL (4.60-5.80); Red Cell Distribution Width 14.4 % (11.0-16.0); SCAN SMEAR FLAG 1; White Blood Count 14.7 X10*3/uL (4.8-10.8)
[2023-09-03 13:27] LABS: Estimated Average Glucose 203 mg/dL; Hemoglobin A1c % 8.7 % (<6.0)
[2023-09-03 13:52] LABS: SLIDE REVIEW VERIFIED
[2023-09-03 14:35] LABS: Appearance Urine Turbid; Color Urine Dark Yellow; Glucose Urine UA 100 mg/dL (Negative); Leukocyte Esterase Urine Negative (Negative); Nitrite Urine Negative (Negative); PH 5.5 (5.0-9.0); Specific Gravity - Urine >= 1.030 (1.005-1.025); UMIC TRIGGER UACC YES; Urine Blood Negative (Negative); Urine Ketones Trace mg/dL (Negative); Urine Protein 100 (2+) mg/dL (Neg-Trace)
[2023-09-03 14:39] LABS: Alanine Aminotransferase 44 U/L (0-40); Albumin Level 4.4 g/dL (3.5-5.0); Alkaline Phosphatase 84 U/L (39-117); Anion Gap 13 (12-20); Aspartate Amino Transferase 30 U/L (5-37); Bilirubin Total 0.7 mg/dL (0.0-1.0); Blood Urea Nitrogen 18 mg/dL (9-16); Calcium 9.6 mg/dL (8.4-10.2); Carbon Dioxide 29 mmol/L (22-29); Chloride 98 mmol/L (96-108); Cholesterol 144 mg/dL (<200); Estimated Glomerular Filt Rate > 60; Glucose Fasting 233 mg/dL (60-99); HDL Cholesterol 28 mg/dL (>40); LDL Cholesterol Calculated 80 mg/dL (<100); Sodium 136 mmol/L (135-145); Total Protein 8.3 g/dL (6.5-8.0); Triglycerides 183 mg/dL (<150)
[2023-09-03 14:41] LABS: Creatinine Urine 562.31 mg/dL; Microalbum/Creatinine Ratio Ur 13.8 ug/mg cr (<30)
[2023-09-03 14:54] LABS: TSH reflex Free T4 1.43 uIU/mL (0.32-4.0); Vitamin D 25-OH Total 22.4 ng/mL (>30)
[2023-09-03 15:02] LABS: Bacteria Urine None Seen (None Seen); Hyaline Casts Urine >20 /LPF (0-2); RBC Urine 0-2 /HPF (0-2); WBC Urine 0-5 /HPF (0-5)
== END 2023-09-03 12:54 | disposition home or self-care (01) ==
LOC: HO.LAB 12:53
PROVIDERS: PCP Internal Medicine; Visit Provider Internal Medicine
DX: D64.9 Anemia, unspecified (principal); E78.00 Pure hypercholesterolemia, unspecified; E11.9 Type 2 diabetes mellitus without complications; R30.0 Dysuria; E55.9 Vitamin D deficiency, unspecified
CPT/HCPCS: 36415; 80053; 80061; 81001; 82043; 82306; 82570; 83036; 84443; 85025

== ENCOUNTER 2023-09-04 14:43 | Outpatient (AMB) | payer OTHER, SELFPAY ==
[2023-09-04 14:48] VITALS: BP 152/90; PULSE 115; O2SAT 95; BMI 50.5
--- NOTE | 2023-09-04 14:48 | A.OFFPC_ITS ---
Vital Signs 09/04/23 14:48 Height 5 ft 4 in Weight 294 lb 0.3 oz BMI 50.5 BP 152/90 H Blood Pressure Location Lt brachial Position Sitting Pulse 115 H Pulse Source Pulse Oximeter Pulse Oximetry (%) 95 Oxygen Delivery Method Room Air Intake Visit Reasons: 3M Follow Up- NEEDS A1C Allergies acetaminophen [From TYLENOL] Allergy (Unknown, Verified 09/04/23 15:44) UPSET STOMACH naproxen Adverse Reaction (Unknown, Verified 09/04/23 15:44) stomach upset Medication List - Last Reconciled 09/04/23 by Carlos Alberto Patel MD alprazolam 1 mg PO TID PRN blood pressure kit-extra large As directed blood pressure monitor As directed blood sugar diagnostic (FreeStyle Lite Strips) USE TO TEST ONCE DAILY DIRECTED blood-glucose meter (FreeStyle Lite Meter kit) As directed cholecalciferol (vitamin D3) 100 mcg (2 x 50 mcg (2,000 unit)) PO DAILY 90 days escitalopram oxalate 20 mg PO DAILY gabapentin 100 mg PO BEDTIME 90 days lancets (FreeStyle Lancets) As directed lisinopril 20 mg PO DAILY 90 days metformin ER 500 mg PO BID 90 days oxycodone 15 mg PO Q8H PRN 14 days Tobacco use date assessed: 06/05/23 Dental Screening Dental Screen Date: 06/05/23 HPI 3M Follow Up- NEEDS A1C HPI Details Patient comes in today for his follow up visit States that he feels okay but reports that he was sick for about 3 days earlier this week just before he went for his labs yetserday States that he could hardly eat or drink anything and was having frequent diarrhea for 2 to 3 days but all of his symptoms seems to have cleared up now He denies any fever or chills but recalled that he felt very weak when he was sick a few days ago He currently denies any headaches or dizziness Denies any chest pains, no increased SOB No nausea/vomiting, no abdominal pain States that his bowel movements are now back to normal Needs his Oxycodone Rx refilled - states that his chronic low back pain and joint pains remain adequately controlled on his current Rx He had his follow up labs done yesterday - to discuss his results COUNT INCLUDES THE [facility] Medical History Peripheral neuropathy Pain in both feet Lymphedema Impaired fasting glucose Edema of both feet Morbid obesity with BMI of 50.0-59.9, adult Medical marijuana use Smoker Depression Insomnia Vitamin D deficiency Drug-induced constipation Osteoarthritis Hyperglycemia Benign essential hypertension Mixed hyperlipidemia Lumbar disc herniation with myelopathy Lumbar degenerative disc disease Anxiety Surgical History History of appendectomy Family History Father Alive and well Mother COPD (chronic obstructive pulmonary disease) Brother Alive and well Social History Housing: Apartment Alcohol intake: current Alcohol intake frequency: holidays/special occasions only Patient Tobacco Use Status: Current everyday Tobacco user Cigarettes Per Day: 2 e-Cigarette/Vaping Use: Former Use Second Hand Smoke Exposure: Yes service: No Current occupational status: disabled Cognitive needs: No Hearing needs: No Vision needs: Yes Questionnaire Thrive Questionnaire Date Thrive assessed: 06/05/23 AUDIT C Alcohol Use Questionnaire (AUDIT-C) 1. How often do you have a drink containing alcohol?: Monthly or less 2. How many drinks containing alcohol do you have on a typical day when you are drinking?: 3 or 4 3. How often do you have six or more drinks on one occasion?: Less than monthly Total Score: 3 Score Reviewed/Action Taken: Yes KELLY-7 AMB Questionnaire KELLY-7 Date KELLY - 7 assessed: 06/05/23 Source: Developed by Drs. Jay Valladares, Nathalia Smith, Jens Elder and colleagues, with an educational ced from [employer]. Review of Systems Const Denies chills, Reports fatigue, Denies fever(s) and Denies headache(s) ENT Denies dysphagia, Denies dizziness, Denies otalgia, Denies headache(s), Reports neck pain, Denies odynophagia and Denies sore throat Card Denies chest pain, Denies palpitations and Reports dyspnea on exertion (mild) Resp Denies chest congestion, Denies cough and Reports dyspnea on exertion (mild) GI Denies abdominal pain, Denies constipation, Denies dysphagia, Denies heartburn, Denies diarrhea, Denies nausea, Denies odynophagia and Denies vomiting Denies dysuria, Denies nocturia and Denies urinary frequency Musc Reports back pain (over the lumbar spine - chronic), Reports arthralgias (especially of the knees; increasing pain in left hip recently), Reports neck pain and Reports tingling (in both feet) Skin/Breast Denies rash Neuro Denies dizziness, Denies headache(s), Reports tingling (in both feet) and Reports paresthesias (in both feet) Endo Reports fatigue and Denies palpitations Thierry/Lymph Details: (+) recurrent swelling of both feet and ankles Physical exam (Primary Care) Vital Signs: Last Vital Signs Pulse 115 H 09/04/23 14:48 BP 152/90 H 09/04/23 14:48 Pulse Ox 95 09/04/23 14:48 Oxygen Delivery Method Room Air 09/04/23 14:48 BMI result Body Mass Index 50.5 Tobacco/Smoking Status: Tobacco use Status Tobacco use date assessed 06/05/23 09/04/23 14:48 Patient Tobacco Use Status Current everyday Tobacco 09/04/23 14:48 e-Cigarette/Vaping Use Former Use 09/04/23 14:48 Thrive Assessment: Date of Thrive Assessment Date Thrive assessed 06/05/23 09/04/23 14:48 Const General: no acute distress and alert HENMT Ears: TM's normal bilaterally and EAC's normal Throat: Yes posterior oropharynx normal and Yes tonsils normal (no TP congestion noted) Neck Neck: Yes no lymphadenopathy and Yes supple Thyroid: Thyroid normal Resp Auscultation: clear to auscultation bilaterally, no rales and no wheezes Cardio Rate: regular rate Rhythm: regular rhythm Heart sounds: no murmurs GI Palpation (GI): Soft to palpation and nontender Auscultation: normal bowel sounds General: Yes no CVA tenderness Back/Spine/Pelvis Back: no CVA tenderness Cervical Spine: Cervical spine tenderness Thoracic/Lumbar Spine: lumbar spinal tenderness Skin Rashes: no rashes Extrem General: No clubbing, No cyanosis and Yes edema (2+ bilateral lower extremity edema) Left lower extremity: hip/thigh Details: tenderness Location: of the hip Results Reviewed Results Reviewed: Laboratory Tests 06/05/23 09/03/23 09/03/23 16:03 13:05 13:08 WBC 14.7 H Hgb 15.3 Hct 48.6 Plt Count 214 Sodium 136 Potassium 4.0 Creatinine 1.16 Estimated GFR > 60 Fasting Glucose 233 H Hgb A1c (Clinic) 11.0 H Hemoglobin A1c % 8.7 H Calcium 9.6 AST 30 ALT 44 H Triglycerides 183 H Cholesterol 144 LDL Cholesterol, Calc 80 HDL Cholesterol 28 L 25-OH Vitamin D Total 22.4 L TSH 1.43 Ur Specific [place] >= 1.030 H Urine Protein 100 (2+) H Urine Glucose (UA) 100 H Urine Blood Negative Urine Nitrite Negative Ur Leukocyte Esterase Negative Microalb/Creat Ratio 13.8 Assessment and Plan Assessment & Plan (1) Mixed hyperlipidemia: Code(s): E78.2 - Mixed hyperlipidemia Plan: Results of his labs done yesterday reviewed and discussed with patient - he is advised that his cholesterol levels were at goal, with his LDL cholesterol at 80 mg/dl and total cholesterol at 144 mg/dl Reinforced low cholesterol diet Will recheck his labs and fasting lipids again in 3 months for follow-up (2) Diabetes mellitus: Code(s): E11.9 - Type 2 diabetes mellitus without complications Qualifiers: Diabetes mellitus type: type 2 Diabetes mellitus adjunct faculty for medical terminology insulin use: without adjunct faculty for medical terminology use Diabetes mellitus complication status: with hyperglycemia Qualified Code(s): E11.65 - Type 2 diabetes mellitus with hyperglycemia Plan: His HgbA1c was at 8.7% on his labs done yesterday (his in-office HgbA1c was at 11.1% back in May 2023) - goal is <7.0% Reinforced diabetic diet/exercise as tolerated Continue Metformin ER 500 mg BID (3) Benign essential hypertension: Code(s): I10 - Essential (primary) hypertension Plan: Reinforced low-sodium diet - goal is systolic BP of 120 mm or less Continue Lisinopril 20 mg QD (4) Lumbar degenerative disc disease: Code(s): M51.36 - Other intervertebral disc degeneration, lumbar region Plan: Reinforced activity and weight-lifting restrictions MRI of the lumbar spine last done in January 2018 revealed (+) posterior disc protrusion/extrusion at L5-S1 impinging on both the right and left exiting L5 nerve roots (more on the right side); central and right paracentral disc protrusion extending behind the body of the L5 to the right of midline Repeat lumbar spine x-rays done in May 2023 revealed (+) multilevel degenerative changes in the lumbar spine Continue Oxycodone 15 mg every 8 hours PRN - Rx refilled Patient continues to decline taking Gabapentin, which may help alleviate some of his chronic pain - states that he is on medical marijuana and this is already helping him slightly He used to go to [facility] and reportedly received a total of 8 injections into his lower back from Dr. Waller but has not gone back to see them in a few years - states that he did not want to continue getting injections into his lower back as they were not helping at all when he was getting them (5) Osteoarthritis: Code(s): M19.90 - Unspecified osteoarthritis, unspecified site Qualifiers: Osteoarthritis location: unspecified site Osteoarthritis type: primary Qualified Code(s): M19.91 - Primary osteoarthritis, unspecified site Plan: States that his current meds help with his symptoms Will consider referral to Orthopedics if his symptoms get worse Left hip x-rays done a few years ago in 2016 came out normal; repeat left hip x- rays done in May 2023 came out normal as well Advised that his hip pains may actually be referred pain from his lower back, especially with his normal hip x-rays recently (6) Leukocytosis (leucocytosis): Code(s): D72.829 - Elevated white blood cell count, unspecified Qualifiers: Leukocytosis type: unspecified Qualified Code(s): D72.829 - Elevated white blood cell count, unspecified Plan: Patient is advised that his labs done yesterday showed a significantly elevated WBC count, which may be related to his recent illness from earlier this week His WBC count was normal previously Will recheck his CBC in 3 months and if his WBC count remains elevated then, will need further evaluation on this (7) Drug-induced constipation: Code(s): K59.03 - Drug induced constipation Plan: Encouraged increased oral fluids and dietary fiber Continue OTC stool softeners PRN as he states that they have been helping him adequately so far (8) Vitamin D deficiency: Code(s): E55.9 - Vitamin D deficiency, unspecified Plan: Improving - continue Vitamin D3 2000 units QD (9) Peripheral neuropathy: Code(s): G62.9 - Polyneuropathy, unspecified Qualifiers: Peripheral neuropathy type: polyneuropathy, unspecified Qualified Code(s): G62.9 - Polyneuropathy, unspecified Plan: EMG & NCV done back in April 2022 revealed (+) moderately severe axonal sensory motor peripheral neuropathy Have reminded patient that this was discussed with him at his last visit that neuropathy is technically end-stage nerve damage and that there is no cure for neuropathy but there are medications we can help make his symptoms more tolerable, with Gabapentin being one of them Patient previously asked to hold off on Rx but is now willing to try them - will start him on Gabapentin 100 mg Q HS He is advised again that better control of her blood sugar will help slow down the progression of his symptoms of neuropathy (10) Lymphedema: Code(s): I89.0 - Lymphedema, not elsewhere classified Plan: Reminded patient to continue with leg elevation as often as he can to help minimize his edema; advised again that compression stockings/socks are also options that can help him and he can call for Rx if he is interested in trying these Reminded that his lymphedema is most likely related to his weight and his sedentary lifestyle, as his recent labs continue to show normal renal function (11) Insomnia: Code(s): G47.00 - Insomnia, unspecified Qualifiers: Insomnia type: unspecified Qualified Code(s): G47.00 - Insomnia, unspecified Plan: Sleep hygiene reinforced (12) Anxiety: Code(s): F41.9 - Anxiety disorder, unspecified Plan: Continue Alprazolam 1 mg TID PRN - Rx is being prescribed and managed by psychiatry (13) Depression: Code(s): F32.9 - Major depressive disorder, single episode, unspecified Qualifiers: Depression Type: major depressive disorder Major depression recurrence: recurrent Active/Remission status: currently active Major depression episode severity: unspecified Qualified Code(s): F33.9 - Major depressive disorder, recurrent, unspecified Plan: Continue Escitalopram 20 mg QD Follow up with psychiatry as scheduled (14) Smoker: Code(s): F17.200 - Nicotine dependence, unspecified, uncomplicated Plan: Counseled again on smoking cessation (15) Medical marijuana use: Code(s): Z79.899 - Other senior care (current) drug therapy Plan: Medical Marijuana card is on file (16) Morbid obesity with BMI of 50.0-59.9, adult: Code(s): E66.01 - Morbid (severe) obesity due to excess calories; Z68.43 - Body mass index [BMI] 50.0-59.9, adult Plan: Reinforced diet; exercise and weight loss are likely unrealistic in this patient due to his multiple comorbidities and physical condition He also has not shown any consistent motivation at all to lose weight in the past Plan Follow up in 3 months Orders: Orders Comprehensive [place]. Panel Fast 3 Months E78.00 - Pure hypercholesterolemia, unspecified Vitamin B12 and Folate 3 Months E53.8 - Deficiency of other specified B group vitamins Complete Blood Count Auto Diff 3 Months D64.9 - Anemia, unspecified Lipid Panel 3 Months E78.00 - Pure hypercholesterolemia, unspecified TSH reflex Free T4 3 Months E78.00 - Pure hypercholesterolemia, unspecified UA CC w/rflx Micro + Cult 3 Months R30.0 - Dysuria Vitamin D 25-OH Total 3 Months E55.9 - Vitamin D deficiency, unspecified Microalbumin, Random (w Creat) 3 Months E11.9 - Type 2 diabetes mellitus without complications Hemoglobin A1c 3 Months E11.9 - Type 2 diabetes mellitus without complications Medications: Refilled oxycodone 15 mg PO Q8H 14 days PRN 42 tabs 0RF severe pain M51.06 - Intervertebral disc disorders with myelopathy, lumbar region Coding Level of Care Code Est Pt Level 4 (25225) Complex EM visit Add On G2211 Diagnoses Mixed hyperlipidemia E78.2 Type 2 diabetes mellitus with hyperglycemia, without long-term current use of insulin E11.65 Diabetes mellitus type: type 2 Diabetes mellitus adjunct faculty for medical terminology insulin use: without adjunct faculty for medical terminology use Diabetes mellitus complication status: with hyperglycemia Benign essential hypertension I10 Lumbar degenerative disc disease M51.36 Primary osteoarthritis, unspecified site M19.91 Osteoarthritis location: unspecified site Osteoarthritis type: primary Leukocytosis, unspecified type D72.829 Leukocytosis type: unspecified Drug-induced constipation K59.03 Vitamin D deficiency E55.9 Peripheral polyneuropathy G62.9 Peripheral neuropathy type: polyneuropathy, unspecified Lymphedema I89.0 Insomnia, unspecified type G47.00 Insomnia type: unspecified Anxiety F41.9 Episode of recurrent major depressive disorder, unspecified depression episode severity F33.9 Depression Type: major depressive disorder Major depression recurrence: recurrent Active/Remission status: currently active Major depression episode severity: unspecified Smoker F17.200 Medical marijuana use Z79.899 Morbid obesity with BMI of 50.0-59.9, adult E66.01; Z68.43
== END 2023-09-04 15:54 | disposition home or self-care (01) ==
PROVIDERS: PCP Internal Medicine; Visit Provider Internal Medicine
DX: E11.65 Type 2 diabetes mellitus with hyperglycemia (principal); E66.01 Morbid (severe) obesity due to excess calories; F33.9 Major depressive disorder, recurrent, unspecified; Z68.43 Body mass index [BMI] 50.0-59.9, adult; E78.2 Mixed hyperlipidemia; I10 Essential (primary) hypertension; M51.36 Other intervertebral disc degeneration, lumbar region; M19.91 Primary osteoarthritis, unspecified site; D72.829 Elevated white blood cell count, unspecified; K59.03 Drug induced constipation; E55.9 Vitamin D deficiency, unspecified; G62.9 Polyneuropathy, unspecified
CPT/HCPCS: 99214; G2211

== ENCOUNTER 2023-09-12 15:49 | Emergency (ER) | payer OTHER, SELFPAY ==
--- NOTE | ~2023-09-12 | CT_ITS ---
EXAMINATION: CT ABDOMEN AND PELVIS WITHOUT CONTRAST CLINICAL INFORMATION: Epigastric abdominal pain COMPARISON: Same day ultrasound abdomen TECHNIQUE: Multidetector volumetric imaging was performed from the superior aspect of the liver through the pubic symphysis. Sagittal and coronal reformatted images were obtained on the technologist's workstation. This CT examination was performed using dose optimization techniques as appropriate, variously including the following: *Automated exposure control *Adjustment of mA and/or kV according to patient size (this includes techniques or standardized protocols for targeted exams where dose is matched to indication/reason for exam; i.e. extremities or head) *Use of iterative reconstruction technique DLP: 989 mGy-cm FINDINGS: LUNG BASES: The visualized lung bases are unremarkable. LIVER, GALLBLADDER, AND BILIARY TREE: The liver is normal in size, shape, and attenuation. No focal hepatic lesion or biliary ductal dilatation is present. The gallbladder contains 2 large radiopaque gallstones, but no gallbladder wall thickening or obvious pericholecystic inflammatory changes. PANCREAS: Subtle peripancreatic stranding around the head and uncinate process. Scattered prominent peripancreatic lymph nodes, as below. SPLEEN: Unremarkable. ADRENAL GLANDS: Unremarkable. KIDNEYS AND URETERS: The kidneys are normal in size, shape, and attenuation. No hydronephrosis, hydroureter, or calculi seen. No perinephric stranding. BLADDER: Unremarkable. GASTROINTESTINAL TRACT: The small and large bowel are unremarkable. The appendix is unremarkable. ABDOMINAL WALL: No significant hernia is appreciated. LYMPH NODES: Prominent upper abdominal and retroperitoneal lymph nodes. For example, a portal caval lymph node measures 3.4 x 1.6 cm. Scattered peripancreatic lymph nodes, for example a lymph node measuring 1.5 x 0.5 cm (2:28). Scattered prominent mesenteric lymph nodes, for example a central mesentery lymph node measures 0.8 x 0.6 cm (2:40). Prominent retroperitoneal lymph nodes, for example a left para-aortic lymph node measures 0.9 x 0.4 cm (2:41). Bilateral external iliac lymph nodes measure 1.4 x 0.8 cm on the left (2:77) and 1.3 x 0.6 cm on the right (2:74). Prominent bilateral inguinal lymph nodes for example, a left inguinal lymph node measuring 2.1 x 0.8 x 2.4 cm (2:85, 5:42). VASCULAR: Unremarkable. PELVIC VISCERA: Mildly distended bladder with apparent circumferential wall thickening, which may be due to underdistention. OSSEOUS STRUCTURES: Degenerative changes of the spine. CT/CT abdomen pelvis wo IV con IMPRESSION: 1. Subtle peripancreatic stranding around the body and uncinate process may represent early acute pancreatitis. Recommend clinical correlation with amylase/lipase. 2. Multiple prominent upper abdominal and retroperitoneal lymph nodes of unclear significance. 3. Two large gallstones in the gallbladder, without secondary signs of acute cholecystitis. 4. Mildly distended bladder with apparent circumferential wall thickening, which may be due to underdistention. Recommend urinalysis to rule out cystitis. Fleischner guidelines were followed.
--- NOTE | ~2023-09-12 | US_ITS ---
EXAMINATION: US ABDOMEN LIMITED CLINICAL INFORMATION: Right upper quadrant pain, locate gallbladder, CBD. COMPARISON: Same day CT abdomen/pelvis dated 09/12/2023 TECHNIQUE: Real-time imaging of the right upper quadrant abdominal viscera. FINDINGS: GALLBLADDER: Two large gallstones, better seen on same day CT abdomen/pelvis. The gallbladder is physiologically distended without wall thickening or pericholecystic fluid. COMMON BILE DUCT: Normal in caliber measuring 0.7 cm in diameter. FREE FLUID: None. US/US abdomen limited IMPRESSION: Two large gallstones opacifying the majority of the gallbladder lumen, which is otherwise physiologically distended and without overt signs of acute cholecystitis.
[2023-09-12 15:54] VITALS: BP 170/110; PULSE 121; RESP 20; TEMP 36.9; O2SAT 97; BMI 48.6
--- NOTE | 2023-09-12 15:54 | ED_ITS ---
HPI - General Adult General Chief complaint: Abdominal Pain Stated complaint: stomach discomfort, can't eat or drink at all? Time Seen by Provider: 09/12/23 17:34 Source: patient, RN notes reviewed and old records reviewed Mode of arrival: ambulatory Limitations: no limitations History of Present Illness ED Provider: JOSE G LAZO PA-C HPI narrative: 42 year old male with pmhx significant for peripheral neuropathy, HTN, lumbar DDD, anxiety, depression presents to the ED today for evaluation of nausea without vomiting and epigastric abdominal pain x3 days. Pain does not radiate. No clear exacerbating or reliecving factors. He states that any time he attempts to eat he becomes nauseous. Denies vomiting. Reports multiple episodes of diarrhea over the last few days, approximately 3 episodes a day. Denies hematochezia or melena. Has not been taking any [id number] medications for this at home. Admits he had an old prescription of ampicillin at home and decided to take 3 doses of this, 2 yesterday and 1 today, to see if this helped his symptoms however did not see improvement. Reports similar episode 1 week ago which resolved on its own. Reports previous appendectomy, no other abdominal surgeries. Admits to medical marijuana use. Denies EtOH consumption. Denies known sick contacts. Denies recent travel outside [place]. Denies fever/ chills, Related Data Home Medications ?Medication ?Instructions ?Recorded ?Confirmed escitalopram oxalate 20 mg tablet 20 mg PO DAILY 05/27/21 09/04/23 Previous Rx's ?Medication ?Instructions ?Recorded blood pressure kit-extra large #1 ea 08/29/21 blood-glucose meter (FreeStyle #1 ea 08/29/21 Lite Meter kit) lancets 28 gauge (FreeStyle #100 ea 08/29/21 Lancets) blood pressure monitor #1 ea 04/17/22 alprazolam 1 mg tablet 1 mg PO TID PRN anxiety #90 tabs 05/16/22 cholecalciferol (vitamin D3) 50 100 mcg (2 x 50 mcg (2,000 unit)) 05/09/23 mcg (2,000 unit) capsule PO DAILY 90 days #180 caps gabapentin 100 mg capsule 100 mg PO BEDTIME 90 days #90 caps 06/05/23 lisinopril 20 mg tablet 20 mg PO DAILY 90 days #90 tabs 06/05/23 metformin 500 mg tablet,extended 500 mg PO BID 90 days #180 tabs 06/05/23 release 24 hr ondansetron 4 mg disintegrating 4 mg PO DAILY PRN nausea and 09/12/23 tablet vomiting 5 days #10 tabs sucralfate 1 gram tablet 1 g PO BID PRN abdominal pain 2 09/12/23 weeks #28 tabs cefuroxime axetil 500 mg tablet 500 mg PO BID 7 days #14 tabs 09/13/23 blood sugar diagnostic (FreeStyle #100 strips 09/14/23 Lite Strips) oxycodone 15 mg tablet 15 mg PO Q8H PRN severe pain 14 09/17/23 days #42 tabs Allergies Allergy/AdvReac Type Severity Reaction Status Date / Time acetaminophen [From TYLENOL] Allergy Unknown UPSET Verified 09/12/23 15:56 STOMACH naproxen AdvReac Unknown stomach Verified 09/12/23 15:56 upset Review of Systems 2 Review of Systems: Constitutional: No fever, chills, fatigue, night sweats, weight changes ENT/Mouth: No ear pain, hearing loss, nasal congestion, sinus pain, rhinorrhea, sore throat Eyes: No eye pain, swelling, redness, vision changes, discharge Cardio: No chest pain, palpitations, JAIN, orthopnea, peripheral edema Pulm: No SOB, cough, sputum, wheezing, dyspnea, hemoptysis GI: No vomiting, hematemesis, constipation, hematochezia, melena, +abdominal pain, +nausea, +diarrhea : No irregular bleeding, dysuria, frequency, urgency, hesitancy, hematuria, flank pain, urinary flow changes, urinary incontinence or retention MSK: No back pain, neck pain, joint pain, myalgias Skin: No lesions, rashes Neuro: No weakness, numbness, paresthesias, LOC, dizziness, headache Psych: No anxiety/panic, depression, SI/HI, AH/VH All other systems reviewed and are negative. [facility]LY [facility] Past Medical History Attestation statement: The following information was validated with the patient. Source: old records reviewed and nursing notes reviewed Medical History Peripheral neuropathy Pain in both feet Lymphedema Impaired fasting glucose Edema of both feet Morbid obesity with BMI of 50.0-59.9, adult Medical marijuana use Smoker Depression Insomnia Vitamin D deficiency Drug-induced constipation Osteoarthritis Hyperglycemia Benign essential hypertension Mixed hyperlipidemia Lumbar disc herniation with myelopathy Lumbar degenerative disc disease Anxiety Surgical History History of appendectomy Family History Family History Father Alive and well Mother COPD (chronic obstructive pulmonary disease) Brother Alive and well Social History Social History Housing: Apartment Alcohol intake: current Alcohol intake frequency: holidays/special occasions only Patient Tobacco Use Status: Current everyday Tobacco user Cigarettes Per Day: 2 Smoked in Last 30 Days: No e-Cigarette/Vaping Use: Former Use Second Hand Smoke Exposure: Yes Use of substances other than those prescribed or required for medical reasons: No Advance Directives: No Advance Directives Information Provided: No Do you have a plan to hurt others: No Plan service: No Current occupational status: disabled Cognitive needs: No Hearing needs: No Vision needs: Yes Physical Exam ED Vital Signs: Vital Signs - 24 hr 09/12/23 15:54 09/12/23 19:49 Temperature 98.5 F 98.1 F Pulse Rate 121 H 93 Respiratory Rate 20 14 Blood Pressure 170/110 H 141/75 H Pulse Oximetry 97 96 Oxygen Delivery Method Room Air Room Air BMI result Body Mass Index 48.6 Patient hypertensive and tachycardic, vitals otherwise wnl Const General: cooperative, healthy appearing, comfortable and no acute distress Orientation/consciousness: patient oriented x3 Limitations: no limitations HENMT Head: Yes normal to inspection, Yes No palpable skull fracture present, Yes normocephalic and Yes atraumatic Eyes General: appearance normal, both eyes and all related structures Pupils: Equal, round and reactive pupils present Neck Neck: Yes normal visual inspection Resp Effort & Inspection: normal respiratory effort and able to speak in complete sentences Auscultation: clear to auscultation bilaterally Cardio Rate: regular rate Rhythm: regular rhythm GI Other: Obese abdomen, soft, nondistended, slightly ttp over epigastric region/ RUQ without rebound tenderness or guarding. normoactive bsx4. General: Yes no CVA tenderness Back/Spine/Pelvis Back: no CVA tenderness Skin General skin exam: no rashes or lesions noted Neuro General: patient oriented x3 and gait normal Cranial nerves: Yes Equal, round and reactive pupils present Extrem General: Yes normal to inspection Course Course Course Narrative: RME performed by Amber Perez PA-C. Patient is a 42 year old assigned male at presenting to the emergency department with weakness and nausea. Detailed physical exam and review of systems are deferred to the respiratory clinician. Labs and swabs ordered. Patient placed back in the waiting room pending room availability and results. Reevaluation(s) Reevaluation #1: 1743-- CBC with leukocytosis to 14.4 without left shift. h&h stable. Chemistry without acute electrolyte abnormality requiring intervention. Random glucose 324 however there is no anion gap. No concern for DKA. 2 L of IV fluids ordered. Will re-evaluate. ALT elevated at 50, appears to be around baseline when compared to priors. 1952-- abdominal ultrasound showing 2 large gallstones opacify the majority of the gallbladder lumen which is physiologically distended and without overt signs of acute cholecystitis. CT abdomen showing subtle peripancreatic stranding around the body and uncinate process may represent early acute pancreatitis, recommending correlation with amylase/lipase. There are multiple prominent upper abdominal and retroperitoneal lymph nodes of unclear significance. Redemonstration of 2 large gallstones within the gallbladder without secondary signs of acute cholecystitis. Mildly distended bladder with apparent circumferential wall thickening, recommending correlation with urinalysis to rule out cystitis. > on re-evaluation, patient reports improvement in nausea. Will p.o. trial. Tulio criteria with score of 1. Severe pancreatitis. 2229-- Repeat BMP showing glucose improved to 261. C diff gene positive however toxin is negative. Does not require treatment for C diff at this time. > On re-evaluation, patient tolerating PO intake. He does not report associated nausea or vomiting. I did discuss case with my attending physician Dr. Basilio along with hospitalist Dr. Crews who agree with outpatient management which I feel is reasonable. patient is agreeable with this. > UA is positive for urinary tract infection. Ceftin sent to pharmacy for treatment. > will send sucralfate and Zofran to pharmacy. Patient has remained stable throughout ED visit today. Discussed worrisome signs and symptoms and when to return to the ED. All questions answered at this time. Patient is agreeable with disposition and stable for discharge. Medications Administered Discontinued Medications Generic Name Dose Route Start Last Admin Trade Name Deloris PRN Reason Stop Dose Admin Sodium Chloride 1,000 mls @ 999 mls/hr 09/12/23 17:45 09/12/23 19:15 Ns IV 09/12/23 18:45 Infused .Q1H1M CAITLYN Infusion Sodium Chloride 1,000 mls @ 999 mls/hr 09/12/23 18:00 09/12/23 19:10 Ns IV 09/12/23 19:00 Infused .Q1H1M CAITLYN Infusion Ondansetron HCl 4 mg 09/12/23 17:43 09/12/23 18:04 Ondansetron Hcl 4 Mg/2 Ml Vial IVPUSH 09/12/23 17:44 4 mg ONCE ONE Administration Medical Decision Making Medical Decision Making [facility] Narrative: 42 year old male with pmhx significant for peripheral neuropathy, HTN, lumbar DDD, anxiety, depression presents to the ED today for evaluation of nausea without vomiting and epigastric abdominal pain x3 days. Patient hypertensive and tachycardic, vitals otherwise WNL. Afebrile. He is nontoxic-appearing and in no acute distress. On exam, obese abdomen, soft, nondistended, slightly tender to palpation epigastric region/right upper quadrant without rebound tenderness or guarding. Normoactive bowel sounds x4. No CVAT bilaterally. Skin warm, dry, intact. No rashes. Differential diagnosis includes anemia, electrolyte abnormality, dehydration, gastritis, gastroenteritis, pancreatitis, cholecystitis, viral syndrome, UTI Plan for labs, UA, viral serology, GI/ cdiff testing, CT abd, RUQ US, IVF, re- evaluation. Differential Diagnosis Differential Diagnoses: The differential diagnosis associated with the presentation includes As above Admission/Observation Consideration of admission/observation: Escalation of care including admission/observation considered Admission considered. Lab Data [facility] Lab Attestation statement: I reviewed the patient's lab results. As above 09/12/23 16:06 09/12/23 20:34 Labs: Lab Results 09/12/23 09/12/23 09/12/23 Range/Units 16:06 20:31 20:34 WBC 14.4 H (4.8-10.8) X10*3/uL RBC 6.43 H (4.60-5.80) X10*6/uL Hgb 16.6 (14.0-18.0) g/dl Hct 50.1 (42.0-52.0) % MCV 77.9 L (80.0-98.0) fL MCH 25.8 L (27.0-33.0) pg MCHC 33.1 (31.0-36.0) g/dl RDW 15.1 (11.0-16.0) % Plt Count 245 (160-400) X10*3/uL MPV 11.0 (9.4-12.4) fL Immature Gran % (Auto) 0.3 (0.0-0.4) % Neut % (Auto) 62.5 (45-73) % Lymph % (Auto) 28.1 (20-40) % [place] % (Auto) 8.4 (2-11) % Eos % (Auto) 0.2 (0-4) % Baso % (Auto) 0.5 (0-2) % Lymph # (Auto) 4.0 (1.2-4.9) X10*3/uL [place] # (Auto) 1.2 (0.1-1.2) X10*3/uL Eos # (Auto) 0.0 (0.0-0.4) X10*3/uL Baso # (Auto) 0.1 (0.0-0.2) X10*3/uL Abs Immat Gran (auto) 0.05 H (0.00-0.03) X10*3/uL Absolute Neuts (auto) 9.0 H (2.0-8.3) x10*3/uL Absolute Nucleated RBC 0.000 (0.0-0.012) X10*3/uL Nucleated RBC % (auto) 0.0 (0.0-0.2) /100WBC Sodium 135 138 (135-145) mmol/L Potassium 4.1 3.9 (3.3-5.1) mmol/L Chloride 101 105 (96-108) mmol/L Carbon Dioxide 21 L 23 (22-29) mmol/L Anion Gap 17 14 (12-20) BUN 12 11 (9-16) mg/dL Creatinine 1.29 1.03 (0.5-1.4) mg/dL Estim Creat Clear Calc 89.7 112.4 Estimated GFR > 60 > 60 Random Glucose 324 H 261 H (60-115) mg/dL Calcium 10.3 H D 9.2 D (8.4-10.2) mg/dL Magnesium 2.1 (1.6-2.6) mg/dL Total Bilirubin 0.5 0.4 (0.0-1.0) mg/dL AST 32 27 (5-37) U/L ALT 50 H 42 H (0-40) U/L Alkaline Phosphatase 87 71 (39-117) U/L Lactate Dehydrogenase 190 (118-273) U/L Total Protein 8.8 H 7.3 (6.5-8.0) g/dL Albumin 4.6 3.9 (3.5-5.0) g/dL Triglycerides 165 H (<150) mg/dL Amylase 56 (28-100) U/L Lipase 39 40 (8-78) U/L Urine Color Yellow Urine Appearance Cloudy Urine pH 5.5 (5.0-9.0) Ur Specific [place] 1.015 (1.005-1.025) Urine Protein 30 (1+) H (Neg-Trace) mg/dL Urine Glucose (UA) 250 H (Negative) mg/dL Urine Ketones Trace (Negative) mg/dL Urine Blood Negative (Negative) Urine Nitrite Negative (Negative) Ur Leukocyte Esterase Small (1+) H (Negative) Urine RBC 0-2 (0-2) /HPF Urine WBC 11-20 H (0-5) /HPF Ur Squamous Epith Cells 3-5 (0-2) /HPF Urine Bacteria None Seen (None Seen) Hyaline Casts >20 (0-2) /LPF Stl C. cayetanensis PCR Not Detected (Not Detect.) Stool Rotavirus A PCR Not Detected (Not Detect.) Stl Adenov F 40/41 PCR Not Detected (Not Detect.) Stool Astrovirus (PCR) Not Detected (Not Detect.) Stool Campylobacter PCR Not Detected (Not Detect.) Stool Cryptosporidium PCR Not Detected (Not Detect.) Stl Sh Tox Pr E STEC PCR Not Detected (Not Detect.) Stool E coli O157 PCR Not applicable (Not Detect.) Stl Enterotoxigenic E PCR Not Detected (Not Detect.) Stool EPEC (PCR) Not Detected (Not Detect.) Stool EAEC (PCR) Not Detected (Not Detect.) Stl E. histolytica PCR Not Detected (Not Detect.) Stool Giardia Lamblia PCR Not Detected (Not Detect.) Stl P. shigelloides PCR Not Detected (Not Detect.) Stool Salmonella PCR Not Detected (Not Detect.) Stool Sapovirus (PCR) Not Detected (Not Detect.) Stl Shigella/EIEC PCR Not Detected (Not Detect.) St Y.enterocolitica PCR Not Detected (Not Detect.) Stool Vibrio (PCR) Not Detected (Not Detect.) Stl Vibrio cholerae PCR Not Detected (Not Detect.) Stl Norovirus GI/GII PCR Not Detected (Not Detect.) C. difficile Tox B Gene POSITIVE A* (Negative) C. difficile Toxin A&B Negative (Negative) C. difficile Interpret SEE NOTE Influenza Type A (PCR) NEGATIVE (Negative) Influenza Type B (PCR) NEGATIVE (Negative) RSV RNA Qual (PCR) NEGATIVE (Negative) SARS-CoV-2 RNA (RT-PCR) NEGATIVE (Negative) Independent Interpretation I performed an independent interpretation of an: Ultrasound and CT Scan Interpretation: CT abdomen/pelvis showing cholelithiasis, agree with radiologist's interpretation. RUQ ultrasound showing cholelithiasis, agree with radiologist's interpretation. Radiology Impression Discussion of test interpretation with radiology: I have reviewed the radiologist's reading. Radiologist Impression: EXAMINATION: CT ABDOMEN AND PELVIS WITHOUT CONTRAST CLINICAL INFORMATION: Epigastric abdominal pain COMPARISON: Same day ultrasound abdomen TECHNIQUE: Multidetector volumetric imaging was performed from the superior aspect of the liver through the pubic symphysis. Sagittal and coronal reformatted images were obtained on the technologist's workstation. This CT examination was performed using dose optimization techniques as appropriate, variously including the following: *Automated exposure control *Adjustment of mA and/or kV according to patient size (this includes techniques or standardized protocols for targeted exams where dose is matched to indication/reason for exam; i.e. extremities or head) *Use of iterative reconstruction technique DLP: 989 mGy-cm FINDINGS: LUNG BASES: The visualized lung bases are unremarkable. LIVER, GALLBLADDER, AND BILIARY TREE: The liver is normal in size, shape, and attenuation. No focal hepatic lesion or biliary ductal dilatation is present. The gallbladder contains 2 large radiopaque gallstones, but no gallbladder wall thickening or obvious pericholecystic inflammatory changes. PANCREAS: Subtle peripancreatic stranding around the head and uncinate process. Scattered prominent peripancreatic lymph nodes, as below. SPLEEN: Unremarkable. ADRENAL GLANDS: Unremarkable. KIDNEYS AND URETERS: The kidneys are normal in size, shape, and attenuation. No hydronephrosis, hydroureter, or calculi seen. No perinephric stranding. BLADDER: Unremarkable. GASTROINTESTINAL TRACT: The small and large bowel are unremarkable. The appendix is unremarkable. ABDOMINAL WALL: No significant hernia is appreciated. LYMPH NODES: Prominent upper abdominal and retroperitoneal lymph nodes. For example, a portal caval lymph node measures 3.4 x 1.6 cm. Scattered peripancreatic lymph nodes, for example a lymph node measuring 1.5 x 0.5 cm (2:28). Scattered prominent mesenteric lymph nodes, for example a central mesentery lymph node measures 0.8 x 0.6 cm (2:40). Prominent retroperitoneal lymph nodes, for example a left para-aortic lymph node measures 0.9 x 0.4 cm (2:41). Bilateral external iliac lymph nodes measure 1.4 x 0.8 cm on the left (2:77) and 1.3 x 0.6 cm on the right (2:74). Prominent bilateral inguinal lymph nodes for example, a left inguinal lymph node measuring 2.1 x 0.8 x 2.4 cm (2:85, 5:42). VASCULAR: Unremarkable. PELVIC VISCERA: Mildly distended bladder with apparent circumferential wall thickening, which may be due to underdistention. OSSEOUS STRUCTURES: Degenerative changes of the spine. CT/CT abdomen pelvis wo IV con IMPRESSION: 1. Subtle peripancreatic stranding around the body and uncinate process may represent early acute pancreatitis. Recommend clinical correlation with amylase/lipase. 2. Multiple prominent upper abdominal and retroperitoneal lymph nodes of unclear significance. 3. Two large gallstones in the gallbladder, without secondary signs of acute cholecystitis. 4. Mildly distended bladder with apparent circumferential wall thickening, which may be due to underdistention. Recommend urinalysis to rule out cystitis. Fleischner guidelines were followed. External Record Review External record reviewed: Inpatient record and Office record Prescription Management I considered prescription management with: Pain Medication, Antibiotic and Other (Zofran) Chronic Conditions Patient?s care impacted by: Diabetes and Other (Marijuana use) Social Determinants Patient?s care significantly limited by Social Determinants of Health including: Other Social Determinant of Health Critical Care Time Critical Care Time Critical Care Time: No Discharge Plan Discharge Clinical Impression: Urinary tract infection, Cholelithiasis, Gastritis, Acute UTI Patient Disposition: Home, Self-Care Instructions: Gastritis (ED), Gallstones (ED), Urinary Tract Infection in Men (ED) Additional Instructions: Your blood work today showed elevated blood sugar. You were treated with IV fluids with improvement. You tested negative for covid/flu/rsv. The ultrasound of your abdomen shows gallstones without evidence of gallbladder infection. Your urine is positive for infection. Ceftin is an antibiotic that has been sent to your pharmacy for treatment. Take this as prescribed for the next 7 days. Do not skip any doses or stop taking this early as this can cause infection to persist or worsen. Zofran is an antinausea medication that has been sent to your pharmacy. You may take this as needed for nausea/vomiting. A sample of your stool was sent to the lab. You will be contacted regarding any abnormal results. Please follow up with your PCP regarding today's visit. Follow up with GI doctor. Referral has been provided. Return with new or worsening symptoms. In the case of an emergency call 911. Prescriptions: New sucralfate 1 gram tablet 1 g PO BID PRN (Reason: abdominal pain) 14 Days Qty: 28 0RF ondansetron 4 mg tablet,disintegrating 4 mg PO DAILY PRN (Reason: nausea and vomiting) 5 Days Qty: 10 0RF cefuroxime axetil 500 mg tablet 500 mg PO BID 7 Days Qty: 14 0RF No Action (DME) blood pressure monitor Kit See Rx Instructions .Route Qty: 1 0RF Rx Instructions: As directed cholecalciferol (vitamin D3) 50 mcg (2,000 unit) capsule 100 mcg PO DAILY 90 Days Qty: 180 3RF (DME) FreeStyle Lite Strips Strip See Rx Instructions .ROUTE .COMPLEX Qty: 100 0RF Dose Instruction: USE TO TEST ONCE DAILY DIRECTED Rx Instructions: USE TO TEST ONCE DAILY DIRECTED oxycodone 15 mg tablet 15 mg PO Q8H PRN (Reason: severe pain) 14 Days Qty: 42 0RF (DME) blood pressure kit-extra large Kit See Rx Instructions .Route Qty: 1 0RF Rx Instructions: As directed (DME) blood-glucose meter [FreeStyle Lite Meter] Kit See Rx Instructions .Route Qty: 1 0RF Rx Instructions: As directed (DME) lancets [FreeStyle Lancets] 28 gauge misc See Rx Instructions .ROUTE .MEDSUPPLY Qty: 100 1RF Rx Instructions: As directed lisinopril 20 mg tablet 20 mg PO DAILY 90 Days Qty: 90 1RF metformin 500 mg tablet extended release 24 hr 500 mg PO BID 90 Days Qty: 180 1RF gabapentin 100 mg capsule 100 mg PO BEDTIME 90 Days Qty: 90 0RF escitalopram oxalate 20 mg tablet 20 mg PO DAILY alprazolam 1 mg tablet 1 mg PO TID PRN (Reason: anxiety) Qty: 90 0RF Rx Instructions: Rx is being prescribed and managed by psychiatry Referrals: [facility] [Provider Group] Carlos Alberto Patel MD [Primary Care Provider] - Interventions: ED Discharge Assessment Last Done: 09/12/23 23:07 Discharge Date/Time: 09/12/23 23:15 Print Language: [place]
[2023-09-12 16:14] LABS: MANUAL DIFF FLAG NO
[2023-09-12 16:15] LABS: Basophils Absolute Auto 0.1 X10*3/uL (0.0-0.2); Basophils Percent Auto 0.5 % (0-2); Eosinophils Percent Auto 0.2 % (0-4); Hematocrit 50.1 % (42.0-52.0); Hemoglobin 16.6 g/dl (14.0-18.0); Imm Gran Abs Auto 0.05 X10*3/uL (0.00-0.03); Imm Gran Pct Auto 0.3 % (0.0-0.4); Lymphocytes Percent Auto 28.1 % (20-40); Mean Corpuscular HGB Conc 33.1 g/dl (31.0-36.0); Mean Corpuscular Hemoglobin 25.8 pg (27.0-33.0); Mean Corpuscular Volume 77.9 fL (80.0-98.0); Monocytes Absolute Auto 1.2 X10*3/uL (0.1-1.2); Monocytes Percent Auto 8.4 % (2-11); Neutrophils Percent Auto 62.5 % (45-73); Platelet Count 245 X10*3/uL (160-400); Red Blood Count 6.43 X10*6/uL (4.60-5.80); Red Cell Distribution Width 15.1 % (11.0-16.0); White Blood Count 14.4 X10*3/uL (4.8-10.8)
[2023-09-12 16:16] LABS: Appearance Urine Cloudy; Color Urine Yellow; Glucose Urine UA 250 mg/dL (Negative); Leukocyte Esterase Urine Small (1+) (Negative); Nitrite Urine Negative (Negative); PH 5.5 (5.0-9.0); Specific Gravity - Urine 1.015 (1.005-1.025); UMIC TRIGGER UACC YES; Urine Blood Negative (Negative); Urine Ketones Trace mg/dL (Negative); Urine Protein 30 (1+) mg/dL (Neg-Trace)
[2023-09-12 16:28] LABS: Bacteria Urine None Seen (None Seen); Hyaline Casts Urine >20 /LPF (0-2); RBC Urine 0-2 /HPF (0-2); UACC Culture Trigger YES
[2023-09-12 16:29] LABS: Alanine Aminotransferase 50 U/L (0-40); Albumin Level 4.6 g/dL (3.5-5.0); Alkaline Phosphatase 87 U/L (39-117); Anion Gap 17 (12-20); Aspartate Amino Transferase 32 U/L (5-37); Bilirubin Total 0.5 mg/dL (0.0-1.0); Blood Urea Nitrogen 12 mg/dL (9-16); Calcium 10.3 mg/dL (8.4-10.2); Carbon Dioxide 21 mmol/L (22-29); Chloride 101 mmol/L (96-108); Creatinine Clr Calc Pharmacy 89.7; Estimated Glomerular Filt Rate > 60; Glucose Random 324 mg/dL (60-115); Magnesium 2.1 mg/dL (1.6-2.6); Potassium 4.1 mmol/L (3.3-5.1); Sodium 135 mmol/L (135-145); Total Protein 8.8 g/dL (6.5-8.0)
[2023-09-12 17:04] LABS: Influenza A PCR NEGATIVE (Negative); Influenza B PCR NEGATIVE (Negative); Resp Syncy Virus RNA Qual PCR NEGATIVE (Negative); SARS COV2 PCR INHOUSE NEGATIVE (Negative)
--- NOTE | 2023-09-12 17:24 | PC.NURSE ---
patient presents from external triage with cc of nausea and vomiting on and off since last week states it originally went away after a few days at home and then it came back and he has been since experiencing nausea and diarrhea for the last 3 days. patient endorsing left upper quadrant abdominal pain to palpation, bowel sounds at present in all four quadrants, patient endorsing some nausea but no vomiting, states he has had poor PO intake over the last few days and diarrhea. patient denies sick contacts, denies fevers or other syptoms
[2023-09-12 17:53] LABS: Lipase 39 U/L (8-78); Triglycerides 165 mg/dL (<150)
[2023-09-12] MEDS: ondansetron HCL 4 MG/2 ML VIAL IVPUSH (18:04)
[2023-09-12] MEDS: 0.9 % Sodium Chloride 1,000 ML 999 ML IV ×2 (18:04→18:05)
[2023-09-12 19:49] VITALS: BP 141/75; PULSE 93; RESP 14; TEMP 36.7; O2SAT 96
[2023-09-12 20:54] LABS: Lactate Dehydrogenase 190 U/L (118-273)
[2023-09-12 20:57] LABS: Alanine Aminotransferase 42 U/L (0-40); Albumin Level 3.9 g/dL (3.5-5.0); Alkaline Phosphatase 71 U/L (39-117); Amylase 56 U/L (28-100); Anion Gap 14 (12-20); Aspartate Amino Transferase 27 U/L (5-37); Bilirubin Total 0.4 mg/dL (0.0-1.0); Blood Urea Nitrogen 11 mg/dL (9-16); Calcium 9.2 mg/dL (8.4-10.2); Carbon Dioxide 23 mmol/L (22-29); Chloride 105 mmol/L (96-108); Creatinine Clr Calc Pharmacy 112.4; Estimated Glomerular Filt Rate > 60; Glucose Random 261 mg/dL (60-115); Lipase 40 U/L (8-78); Potassium 3.9 mmol/L (3.3-5.1); Sodium 138 mmol/L (135-145); Total Protein 7.3 g/dL (6.5-8.0)
[2023-09-12 21:26] LABS: CDiff Gene PCR POSITIVE (Negative)
[2023-09-12 22:08] LABS: CDiff Toxin Negative (Negative)
[2023-09-12 22:09] LABS: CDIFF Internal ctrl Dots and bkg OK (V)
[2023-09-12 22:32] VITALS: BP 135/67; PULSE 90; RESP 20; TEMP 36.8; O2SAT 96
[2023-09-12 23:07] VITALS: BP 135/67; PULSE 90; RESP 20; TEMP 36.8; O2SAT 96
[2023-09-13 08:42] LABS: Adenovirus F 40/41 Not Detected (Not Detect.); Astrovirus Not Detected (Not Detect.); Campylobacter Not Detected (Not Detect.); Cryptosporidium Not Detected (Not Detect.); Cyclospora cayetanensis Not Detected (Not Detect.); E. coli EAEC Not Detected (Not Detect.); E. coli EPEC Not Detected (Not Detect.); E. coli ETEC Not Detected (Not Detect.); E. coli STEC Not Detected (Not Detect.); Entamoeba histolytica Not Detected (Not Detect.); Giardia lamblia Not Detected (Not Detect.); Norovirus GI/GII Not Detected (Not Detect.); Plesiomonas shigelloides Not Detected (Not Detect.); Rotavirus A Not Detected (Not Detect.); Salmonella Not Detected (Not Detect.); Sapovirus Not Detected (Not Detect.); Shigella sp./EIEC Not Detected (Not Detect.); Vibrio Not Detected (Not Detect.); Vibrio Cholerae Not Detected (Not Detect.); Yersinia enterocolitica Not Detected (Not Detect.)
== END 2023-09-12 23:15 | disposition home or self-care (01) ==
PROVIDERS: Physician Assistant Medical; Emergency Provider Emergency Medicine; PCP Internal Medicine
DX: N39.0 Urinary tract infection, site not specified (principal); K80.20 Calculus of gallbladder without cholecystitis without obstruction; K29.70 Gastritis, unspecified, without bleeding; R00.0 Tachycardia, unspecified; E11.9 Type 2 diabetes mellitus without complications; I10 Essential (primary) hypertension; E78.2 Mixed hyperlipidemia; F12.90 Cannabis use, unspecified, uncomplicated; F17.200 Nicotine dependence, unspecified, uncomplicated; F17.210 Nicotine dependence, cigarettes, uncomplicated; Z03.818 Encounter for observation for suspected exposure to other biological agents ruled out; Z79.84 Long term (current) use of oral hypoglycemic drugs; Z79.899 Other long term (current) drug therapy
CPT/HCPCS: 0241U; 36415; 74176; 76705; 80053; 81001; 82150; 83615; 83690; 83735; 84478; 85025; 87086; 87088; 87186; 87324; 87493; 87507; 96361; 96374; 99284; J2405

== ENCOUNTER 2023-10-02 08:58 | Outpatient (AMB) | payer OTHER, SELFPAY ==
[2023-10-02 08:59] VITALS: BP 138/90; PULSE 110; O2SAT 97; BMI 49.1
--- NOTE | 2023-10-02 08:59 | A.OFFPC_ITS ---
Vital Signs 10/02/23 08:59 Height 5 ft 4 in Weight 286 lb 0.8 oz BMI 49.1 BP 138/90 H Blood Pressure Location Lt brachial Position Sitting Pulse 110 H Pulse Source Pulse Oximeter Pulse Oximetry (%) 97 Oxygen Delivery Method Room Air Intake Visit Reasons: stomach issues Intake Note: Patient is here to follow-up after a visit the emergency department at [hospital name] on 09/12/2023 Search Lead Required: No Allergies acetaminophen [From TYLENOL] Allergy (Unknown, Verified 10/02/23 08:59) UPSET STOMACH naproxen Adverse Reaction (Unknown, Verified 10/02/23 08:59) stomach upset Medication List - Last Reconciled 10/02/23 by Geena Oneill PA-C alprazolam 1 mg PO TID PRN blood pressure kit-extra large As directed blood pressure monitor As directed blood sugar diagnostic (FreeStyle Lite Strips) USE TO TEST ONCE DAILY DIRECTED blood-glucose meter (FreeStyle Lite Meter kit) As directed cholecalciferol (vitamin D3) 100 mcg (2 x 50 mcg (2,000 unit)) PO DAILY 90 days escitalopram oxalate 20 mg PO DAILY gabapentin 100 mg PO BEDTIME 90 days lancets (FreeStyle Lancets) As directed lisinopril 20 mg PO DAILY 90 days metformin ER 500 mg PO BID 90 days oxycodone 15 mg PO Q8H PRN 14 days sucralfate 1 g PO BID PRN 2 weeks Tobacco use date assessed: 06/05/23 Dental Screening Dental Screen Date: 06/05/23 HPI stomach issues HPI Details 42-year-old male with past medical histo ry of anxiety, hyperlipidemia, hypertension, depression, diabetes mellitus, and lymphedema last seen by Dr. Patel 08/2023 coming in for acute problem. In review of the notes, patient was [place] [facility] [place] for nausea and vomiting with epigastric pain. Abdominal ultrasound showing [address] abdomen showing subtle peripancreatic stranding. Urinalysis was positive for urinary tract infection. Sucralfate and Zofran sent to pharmacy along with Ceftin and patient was discharged home. Patient states since the ER his abdominal pain has improved and he is still having discomfort but not to the degree it was before. He was taking sucralfate and Zofran for his symptoms which helped with the nausea and abdominal pain. He does clarify the pain has resolved and now is just having some bothersome discomfort. He denies any further symptoms of UTI and has completed the antibiotics. He does mentioned he has been having diarrhea 2-3 times per day which is mostly liquid and denies seeing any blood or fat in the stool. Denies any symptoms of reflux. [facility] Medical History Peripheral neuropathy Pain in both feet Lymphedema Impaired fasting glucose Edema of both feet Morbid obesity with BMI of 50.0-59.9, adult Medical marijuana use Smoker Depression Insomnia Vitamin D deficiency Drug-induced constipation Osteoarthritis Hyperglycemia Benign essential hypertension Mixed hyperlipidemia Lumbar disc herniation with myelopathy Lumbar degenerative disc disease Anxiety Surgical History History of appendectomy Family History Father Alive and well Mother COPD (chronic obstructive pulmonary disease) Brother Alive and well Social History Housing: Apartment Alcohol intake: current Alcohol intake frequency: holidays/special occasions only Patient Tobacco Use Status: Current everyday Tobacco user Cigarettes Per Day: 2 e-Cigarette/Vaping Use: Former Use Second Hand Smoke Exposure: Yes service: No Current occupational status: disabled Cognitive needs: No Hearing needs: No Vision needs: Yes Questionnaire Thrive Questionnaire Date Thrive assessed: 06/05/23 AUDIT C Alcohol Use Questionnaire (AUDIT-C) 1. How often do you have a drink containing alcohol?: Monthly or less 2. How many drinks containing alcohol do you have on a typical day when you are drinking?: 3 or 4 3. How often do you have six or more drinks on one occasion?: Less than monthly Total Score: 3 Score Reviewed/Action Taken: Yes KELLY-7 AMB Questionnaire KELLY-7 Date KELLY - 7 assessed: 06/05/23 Source: Developed by Drs. Jay Valladares, Nathalia Smith, Jens Elder and colleagues, with an educational ced from [employer]. Review of Systems Const Denies body aches, Denies chills, Denies fever(s) and Denies poor appetite Eyes Reports no additional complaints ENT Denies dizziness Card Denies chest pain, Denies lightheadedness and Denies dyspnea Resp Denies dyspnea GI Reports abdominal pain (Discomfort in epigastric area), Denies melena, Denies hematochezia, Denies constipation, Denies dyspepsia, Reports diarrhea, Reports nausea (Occasional) and Denies vomiting Denies difficulty urinating, Denies dysuria, Denies urinary frequency and Denies urinary urgency Musc Reports no additional complaints and Denies abnormal gait Skin/Breast Reports system reviewed and no additional complaints, except as documented Neuro Denies abnormal gait and Denies dizziness Psych Reports no additional complaints Physical exam (Primary Care) Vital Signs: Last Vital Signs Pulse 110 H 10/02/23 08:59 BP 138/90 H 10/02/23 08:59 Pulse Ox 97 10/02/23 08:59 Oxygen Delivery Method Room Air 10/02/23 08:59 BMI result Body Mass Index 49.1 Tobacco/Smoking Status: Tobacco use Status Tobacco use date assessed 06/05/23 10/02/23 09:00 Patient Tobacco Use Status Current everyday Tobacco 10/02/23 09:00 e-Cigarette/Vaping Use Former Use 10/02/23 09:00 Thrive Assessment: Date of Thrive Assessment Date Thrive assessed 06/05/23 10/02/23 09:00 Const General: cooperative, healthy appearing, comfortable and no acute distress Orientation/consciousness: patient oriented x3 [facility] Head: Yes normocephalic Ears: hearing grossly normal bilaterally General nose exam: Normal external nose present Eyes General: appearance normal, both eyes and all related structures Conjunctivae: conjunctivae normal Neck Neck: Yes full ROM and Yes no lymphadenopathy Resp Effort & Inspection: normal respiratory effort Auscultation: clear to auscultation bilaterally, no crackles, no rales, no rhonchi and no wheezes Cardio Rate: regular rate Rhythm: regular rhythm GI Palpation (GI): Soft to palpation, not firm, nontender (No tenderness to palpation of epigastric area), no guarding, not rigid and No Rebound tenderness present General: Yes no CVA tenderness Back/Spine/Pelvis Back: no CVA tenderness Skin General skin exam: no rashes or lesions noted Neuro General: patient oriented x3 Gait exam (Neuro): Normal gait present Extrem General: Yes normal to inspection, Yes full ROM and No edema Psych Affect: normal affect Attitude: cooperative Insight: Good insight present (Psych) Judgement: Good judgement present (Psych) Assessment and Plan Assessment & Plan (1) Cholelithiasis: Code(s): K80.20 - Calculus of gallbladder without cholecystitis without obstruction Plan: Patient was found to have gallstones on CT imaging and on ultrasound. We will refer to Gastroenterology further management. 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 Per ER notes recommended follow up with Gastroenterology for further workup. Refilled Zofran and Carafate at this visit. (3) Benign essential hypertension: Code(s): I10 - Essential (primary) hypertension Plan: Blood pressure was elevated in the office today 138/90 patient states he did not take his blood pressure medications this morning and his pressures are normal at home. Plan This note was constructed using voice recognition software. While every effort has been made to ensure accuracy and internet database specialist, still areas may have been included sometimes these areas may affect the content or meeting of the given symptoms. Total time spent caring for the patient today was 20 minutes. This includes time spent before the visit reviewing the chart, time spent during the visit, and time spent after the visit and documentation. 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
== END 2023-10-02 09:52 | disposition home or self-care (01) ==
LOC: HO.HMGH 08:58
PROVIDERS: PCP Internal Medicine
DX: K80.20 Calculus of gallbladder without cholecystitis without obstruction (principal); Q45.3 Other congenital malformations of pancreas and pancreatic duct; I10 Essential (primary) hypertension
CPT/HCPCS: 99214

== ENCOUNTER 2023-12-03 13:49 | Outpatient (REF) | payer OTHER, SELFPAY ==
[2023-12-03 14:16] LABS: MANUAL DIFF FLAG NO
[2023-12-03 14:44] LABS: Basophils Absolute Auto 0.1 X10*3/uL (0.0-0.2); Basophils Percent Auto 0.7 % (0-2); Eosinophils Absolute Auto 0.3 X10*3/uL (0.0-0.4); Eosinophils Percent Auto 3.2 % (0-4); Hematocrit 43.4 % (42.0-52.0); Hemoglobin 13.7 g/dl (14.0-18.0); Imm Gran Abs Auto 0.04 X10*3/uL (0.00-0.03); Imm Gran Pct Auto 0.5 % (0.0-0.4); Lymphocytes Absolute Auto 3.2 X10*3/uL (1.2-4.9); Lymphocytes Percent Auto 37.9 % (20-40); Mean Corpuscular HGB Conc 31.6 g/dl (31.0-36.0); Mean Corpuscular Volume 82.5 fL (80.0-98.0); Mean Platelet Volume 11.1 fL (9.4-12.4); Monocytes Absolute Auto 0.8 X10*3/uL (0.1-1.2); Neutrophils Percent Auto 47.7 % (45-73); Platelet Count 205 X10*3/uL (160-400); Red Blood Count 5.26 X10*6/uL (4.60-5.80); Red Cell Distribution Width 13.3 % (11.0-16.0); White Blood Count 8.4 X10*3/uL (4.8-10.8)
[2023-12-03 15:12] LABS: Estimated Average Glucose 220 mg/dL; Hemoglobin A1C 277.1265 umol/L; Hemoglobin A1c % 9.3 % (<6.0)
[2023-12-03 15:24] LABS: Alanine Aminotransferase 28 U/L (0-40); Albumin Level 3.7 g/dL (3.5-5.0); Alkaline Phosphatase 87 U/L (39-117); Anion Gap 9 (12-20); Aspartate Amino Transferase 29 U/L (5-37); Bilirubin Total 0.5 mg/dL (0.0-1.0); Blood Urea Nitrogen 8 mg/dL (9-16); Calcium 9.4 mg/dL (8.4-10.2); Carbon Dioxide 29 mmol/L (22-29); Chloride 103 mmol/L (96-108); Cholesterol 144 mg/dL (<200); Estimated Glomerular Filt Rate > 60; Glucose Fasting 143 mg/dL (60-99); HDL Cholesterol 32 mg/dL (>40); LDL Cholesterol Calculated 88 mg/dL (<100); Potassium 4.2 mmol/L (3.3-5.1); Sodium 137 mmol/L (135-145); Total Protein 7.1 g/dL (6.5-8.0); Triglycerides 124 mg/dL (<150)
[2023-12-03 15:39] LABS: TSH reflex Free T4 1.04 uIU/mL (0.32-4.0); Vitamin D 25-OH Total 14.7 ng/mL (>30)
[2023-12-03 15:50] LABS: Folate 9.7 ng/mL (> or = 4.0); Vitamin B12 627 pg/mL (200-900)
== END 2023-12-03 13:50 | disposition home or self-care (01) ==
LOC: HO.LAB 13:49
PROVIDERS: PCP Internal Medicine; Visit Provider Internal Medicine
DX: E78.00 Pure hypercholesterolemia, unspecified (principal); E11.9 Type 2 diabetes mellitus without complications; D64.9 Anemia, unspecified; E53.8 Deficiency of other specified B group vitamins; E55.9 Vitamin D deficiency, unspecified
CPT/HCPCS: 36415; 80053; 80061; 82306; 82607; 82746; 83036; 84443; 85025

== ENCOUNTER 2023-12-04 14:06 | Outpatient (AMB) | payer OTHER, SELFPAY ==
--- NOTE | 2023-12-04 14:15 | MHC.PC.OV ---
Vital Signs 12/04/23 14:16 Height 5 ft 4 in Weight 299 lb BMI 51.3 BP 132/80 Blood Pressure Location Lt brachial Position Sitting Pulse 95 Pulse Source Pulse Oximeter Pulse Oximetry (%) 94 Oxygen Delivery Method Room Air Intake Visit Reasons: 3M Follow Up Crm Coordinator Required: No Accompanied by: Self / Same As Patient Allergies acetaminophen [From TYLENOL] Allergy (Unknown, Verified 12/04/23 14:36) UPSET STOMACH naproxen Adverse Reaction (Unknown, Verified 12/04/23 14:36) stomach upset Medication List - Last Reconciled 12/04/23 by Carlos Alberto Patel MD alprazolam 1 mg PO TID PRN blood pressure kit-extra large As directed blood pressure monitor As directed blood sugar diagnostic (FreeStyle Lite Strips) USE TO TEST ONCE DAILY DIRECTED blood-glucose meter (FreeStyle Lite Meter kit) As directed cholecalciferol (vitamin D3) 100 mcg (2 x 50 mcg (2,000 unit)) PO DAILY 90 days escitalopram oxalate 20 mg PO DAILY gabapentin 100 mg PO BEDTIME 90 days lancets (FreeStyle Lancets) As directed lisinopril 20 mg PO DAILY 90 days metformin ER 500 mg PO BID 90 days ondansetron 4 mg PO Q8H PRN oxycodone 15 mg PO Q8H PRN 14 days sucralfate (Carafate) 10 mL PO BID Tobacco use date assessed: 12/04/23 Dental Screening Dental Screen Date: 12/04/23 Did you have a dental visit in the last 12 months?: Yes Did you have a dental problem in the last 6 months where you did not have access to dental care?: No Was dental information given to patient?: Patient has dentist HPI 3M Follow Up HPI Details Patient comes in today for his follow up visit States that he currently feels okay but reports that spent about a month's time this past summer mostly in bed due to his increased swelling and pain of his legs and feet States that this is likely the reason for his significant weight gain over the past couple of months but he is now back on his feet and moving around regularly He denies any headaches or dizziness Denies any chest pains, no increased SOB No nausea/vomiting, no abdominal pain No change in bowel habits noted States that his chronic low back pain and joint pains remain adequately controlled on his current Rx He had his follow up labs done yesterday - to discuss his results FOR[facility] Medical History Peripheral neuropathy Pain in both feet Lymphedema Impaired fasting glucose Edema of both feet Morbid obesity with BMI of 50.0-59.9, adult Medical marijuana use Smoker Depression Insomnia Vitamin D deficiency Drug-induced constipation Osteoarthritis Hyperglycemia Benign essential hypertension Mixed hyperlipidemia Lumbar disc herniation with myelopathy Lumbar degenerative disc disease Anxiety Surgical History History of appendectomy Family History Father Alive and well Mother COPD (chronic obstructive pulmonary disease) Brother Alive and well Social History Housing: Apartment Alcohol intake: current Alcohol intake frequency: holidays/special occasions only Patient Tobacco Use Status: Current everyday Tobacco user Cigarettes Per Day: 2 e-Cigarette/Vaping Use: Former Use Second Hand Smoke Exposure: Yes service: No Current occupational status: disabled Cognitive needs: No Hearing needs: No Vision needs: Yes Questionnaire PHQ-9 Over the last 2 weeks, how often have you been bothered by any of the following problems? 1. Little interest or pleasure in doing things: nearly every day 2. Feeling down, depressed, or hopeless: nearly every day 3. Trouble falling or staying asleep, or sleeping too much: nearly every day 4. Feeling tired or having little energy: nearly every day 5. Poor appetite or overeating: more than half the days 6. Feeling bad about yourself - or that you are a failure or have let yourself or your family down: nearly every day 7. Trouble concentrating on things, such as reading the newspaper or watching television: nearly every day 8. Moving or speaking so slowly that other people could have noticed. Or the opposite - being so fidgety or restless that you have been moving around a lot more than usual: more than half the days 9. Thoughts that you would be better off or of hurting yourself in some way: several days Total score: 23 Depression Screening Interpretation: Positive Depression Screening Follow-up: Existing condition and In treatment Depression Screening Done: Yes 32132 - PHQ-9 Billing: Yes Source: Developed by Drs. Jay Valladares, Nathalia Smith, Jens Elder and colleagues, with an educational cde from [employer]. Thrive Questionnaire Date Thrive assessed: 12/04/23 I am a: Patient What is your living situation today?: I have a steady place to live Within the past 12 months, did the food you bought not last and you didn't have the money to get more?: Never true Within the past 12 months, did you worry whether your food would run out before you got money to buy more?: Never true Do you have trouble paying for medicines?: No Do you have trouble getting transportation to medical appointments?: No Do you have trouble paying your heating and electricity bill?: No Do you have trouble taking care of your child, family member or friend?: No Do you have trouble with day-to-day activities such as bathing, preparing meals, shopping, managing finances, etc.?: No Are you currently unemployed and looking for a job?: I choose not to answer this question Are you interested in more education?: No Please select the resources that you would like help with: None Currently or been in a relationship where the following occur: No concerns reported THRIVE Score: 0 AUDIT C Alcohol Use Questionnaire (AUDIT-C) 1. How often do you have a drink containing alcohol?: Monthly or less 2. How many drinks containing alcohol do you have on a typical day when you are drinking?: 3 or 4 3. How often do you have six or more drinks on one occasion?: Less than monthly Total Score: 3 Score Reviewed/Action Taken: Yes KELLY-7 AMB Questionnaire KELLY-7 Date KELLY - 7 assessed: 12/04/23 Feeling nervous, anxious, or on edge: 0 = Not at all Not being able to stop or control worryin = Not at all Worrying too much about different things: 0 = Not at all Trouble relaxin = Not at all Being so restless that it is hard to sit still: 0 = Not at all Becoming easily annoyed or irritable: 0 = Not at all Feeling afraid as if something awful might happen: 0 = Not at all Total KELLY-7 score (0-4 normal; 5-9 mild; 10-14 moderate; 15-21 severe): 0 Source: Developed by Drs. Jay Valladares, Nathalia Smith, Jens Elder and colleagues, with an educational ced from [employer]. Review of Systems Const Denies chills, Reports fatigue, Denies fever(s) and Denies headache(s) ENT Denies dysphagia, Denies dizziness, Denies otalgia, Denies headache(s), Reports neck pain, Denies odynophagia and Denies sore throat Card Denies chest pain, Denies palpitations and Reports dyspnea on exertion (mild) Resp Denies chest congestion, Denies cough and Reports dyspnea on exertion (mild) GI Denies abdominal pain, Denies constipation, Denies dysphagia, Denies heartburn, Denies diarrhea, Denies nausea, Denies odynophagia and Denies vomiting Denies dysuria, Denies nocturia and Denies urinary frequency Musc Reports back pain (over the lumbar spine - chronic), Reports arthralgias (especially of the knees; increasing pain in left hip recently), Reports neck pain and Reports tingling (in both feet) Skin/Breast Denies rash Neuro Denies dizziness, Denies headache(s), Reports tingling (in both feet) and Reports paresthesias (in both feet) Endo Reports fatigue and Denies palpitations Thierry/Lymph Details: (+) recurrent swelling of both feet and ankles Physical exam (Primary Care) Vital Signs: Last Vital Signs Pulse 95 12/04/23 14:16 BP 132/80 12/04/23 14:16 Pulse Ox 94 12/04/23 14:16 Oxygen Delivery Method Room Air 12/04/23 14:16 BMI result Body Mass Index 51.3 Tobacco/Smoking Status: Tobacco use Status Tobacco use date assessed 12/04/23 12/04/23 14:18 Patient Tobacco Use Status Current everyday Tobacco 12/04/23 14:18 e-Cigarette/Vaping Use Former Use 12/04/23 14:18 PHQ-9: PHQ-9 Score PHQ-9: Total score 23 12/04/23 14:38 Depression Screening Interpretation: Positive Depression Screening Follow-up: Existing condition and In treatment Thrive Assessment: Date of Thrive Assessment Date Thrive assessed 12/04/23 12/04/23 14:18 Currently or been in a relationship where the following occur: No concerns reported Const General: no acute distress and alert HENMT Ears: TM's normal bilaterally and EAC's normal Throat: Yes posterior oropharynx normal and Yes tonsils normal (no TP congestion noted) Neck Neck: Yes no lymphadenopathy and Yes supple Thyroid: Thyroid normal Resp Auscultation: clear to auscultation bilaterally, no rales and no wheezes Cardio Rate: regular rate Rhythm: regular rhythm Heart sounds: no murmurs GI Palpation (GI): Soft to palpation and nontender Auscultation: normal bowel sounds General: Yes no CVA tenderness Back/Spine/Pelvis Back: no CVA tenderness Cervical Spine: Cervical spine tenderness Thoracic/Lumbar Spine: lumbar spinal tenderness Skin Rashes: no rashes Extrem General: No clubbing, No cyanosis and Yes edema (2+ bilateral lower extremity edema) Left lower extremity: hip/thigh Details: tenderness Location: of the hip Results Reviewed Results Reviewed: Laboratory Tests 12/03/23 14:14 WBC 8.4 Hgb 13.7 L Hct 43.4 Plt Count 205 Sodium 137 Potassium 4.2 Creatinine 0.85 Estimated GFR > 60 Fasting Glucose 143 H Hemoglobin A1c % 9.3 H Calcium 9.4 AST 29 ALT 28 Triglycerides 124 Cholesterol 144 LDL Cholesterol, Calc 88 HDL Cholesterol 32 L Vitamin B12 627 25-OH Vitamin D Total 14.7 L TSH 1.04 Coding Level of Care Code Est Pt Level 4 (25932) Diagnoses Mixed hyperlipidemia E78.2 Type 2 diabetes mellitus with hyperglycemia, without long-term current use of insulin E11.65 Diabetes mellitus complication status: with hyperglycemia Diabetes mellitus group home insulin use: without group home use Diabetes mellitus type: type 2 Benign essential hypertension I10 Degeneration of intervertebral disc of lumbar region with discogenic back pain and lower extremity pain M51.362 Disc-related pain type: discogenic back pain and lower extremity pain Primary osteoarthritis, unspecified site M19.91 Osteoarthritis location: unspecified site Osteoarthritis type: primary Drug-induced constipation K59.03 Vitamin D deficiency E55.9 Lymphedema I89.0 Insomnia, unspecified type G47.00 Insomnia type: unspecified Anxiety F41.9 Episode of recurrent major depressive disorder, unspecified depression episode severity F33.9 Active/Remission status: currently active Depression Type: major depressive disorder Major depression episode severity: unspecified Major depression recurrence: recurrent Morbid obesity with BMI of 50.0-59.9, adult E66.01; Z68.43 Assessment & Plan Assessment & Plan (1) Mixed hyperlipidemia: Code(s): E78.2 - Mixed hyperlipidemia Category: Medical Plan: Results of his labs done yesterday reviewed and discussed with patient - he is advised that his cholesterol levels were at or close to goal, with his LDL cholesterol at 88 mg/dl and total cholesterol at 144 mg/dl Reinforced low cholesterol diet Will recheck his labs and fasting lipids in 3 months for follow-up (2) Diabetes mellitus: Code(s): E11.9 - Type 2 diabetes mellitus without complications Category: Medical Qualifiers: Diabetes mellitus complication status: with hyperglycemia Diabetes mellitus group home insulin use: without group home use Diabetes mellitus type: type 2 Qualified Code(s): E11.65 - Type 2 diabetes mellitus with hyperglycemia Plan: His HgbA1c was at 9.3% on his labs done yesterday (he was at 8.7% a few months ago) - goal is <7.0% Reinforced diabetic diet/exercise as tolerated Continue Metformin ER 500 mg BID for now - advised that his recently being laid up in bed for a month was likely what caused his HgbA1c to go higher lately (3) Benign essential hypertension: Code(s): I10 - Essential (primary) hypertension Category: Medical Plan: Reinforced low-sodium diet - goal is systolic BP of 120 mm or less Continue Lisinopril 20 mg QD (4) Lumbar degenerative disc disease: Code(s): M51.36 - Other intervertebral disc degeneration, lumbar region Category: Medical Qualifiers: Disc-related pain type: discogenic back pain and lower extremity pain Qualified Code(s): M51.362 - Other intervertebral disc degeneration, lumbar region with discogenic back pain and lower extremity pain Plan: Reinforced activity and weight-lifting restrictions MRI of the lumbar spine last done in January 2018 revealed (+) posterior disc protrusion/extrusion at L5-S1 impinging on both the right and left exiting L5 nerve roots (more on the right side); central and right paracentral disc protrusion extending behind the body of the L5 to the right of midline Repeat lumbar spine x-rays done in May 2023 revealed (+) multilevel degenerative changes in the lumbar spine Continue Oxycodone 15 mg every 8 hours PRN - Rx refilled Patient continues to decline taking Gabapentin, which may help alleviate some of his chronic pain - states that he is on medical marijuana and this is already helping him slightly He used to go to [facility] and reportedly received a total of 8 injections into his lower back from Dr. Waller but has not gone back to see them in a few years - states that he did not want to continue getting injections into his lower back as they were not helping at all when he was getting them (5) Osteoarthritis: Code(s): M19.90 - Unspecified osteoarthritis, unspecified site Category: Medical Qualifiers: Osteoarthritis location: unspecified site Osteoarthritis type: primary Qualified Code(s): M19.91 - Primary osteoarthritis, unspecified site Plan: States that his current meds help with his symptoms Will consider referral to Orthopedics if his symptoms get worse Left hip x-rays done a few years ago in 2016 came out normal; repeat left hip x-rays done in May 2023 came out normal as well Advised that his hip pains may actually be referred pain from his lower back, especially with his normal hip x-rays from a few months ago (6) Drug-induced constipation: Code(s): K59.03 - Drug induced constipation Category: Medical Plan: He is again encouraged on increased oral fluids and dietary fiber intake Continue OTC stool softeners PRN as he states that they have been helping him adequately so far (7) Vitamin D deficiency: Code(s): E55.9 - Vitamin D deficiency, unspecified Category: Medical Plan: Continue Vitamin D3 4000 units QD (8) Lymphedema: Code(s): I89.0 - Lymphedema, not elsewhere classified Category: Medical Plan: He is reminded to continue with leg elevation as often as he can to help minimize his edema; advised again that compression stockings/socks are also options that can help him and he can call for Rx if he is interested in trying these Reminded that his lymphedema is most likely related to his weight and his sedentary lifestyle, as his recent labs continue to show normal renal function (9) Insomnia: Code(s): G47.00 - Insomnia, unspecified Category: Medical Qualifiers: Insomnia type: unspecified Qualified Code(s): G47.00 - Insomnia, unspecified Plan: Sleep hygiene reinforced (10) Anxiety: Code(s): F41.9 - Anxiety disorder, unspecified Category: Medical Plan: Continue Alprazolam 1 mg TID PRN - Rx is being prescribed and managed by psychiatry (11) Depression: Code(s): F32.9 - Major depressive disorder, single episode, unspecified Category: Medical Qualifiers: Active/Remission status: currently active Depression Type: major depressive disorder Major depression episode severity: unspecified Major depression recurrence: recurrent Qualified Code(s): F33.9 - Major depressive disorder, recurrent, unspecified Plan: Continue Escitalopram 20 mg QD Follow up with psychiatry as scheduled (12) Morbid obesity with BMI of 50.0-59.9, adult: Code(s): E66.01 - Morbid (severe) obesity due to excess calories; Z68.43 - Body mass index [BMI] 50.0-59.9, adult Category: Medical Plan: Reinforced diet; exercise and weight loss are likely unrealistic in this patient due to his multiple comorbidities and physical condition He also has not shown any consistent motivation at all to lose weight in the past Plan Follow up in 3 months Orders: Orders Complete Blood Count Auto Diff 3 Months D64.9 - Anemia, unspecified Comprehensive [place]. Panel Fast 3 Months E78.00 - Pure hypercholesterolemia, unspecified UA CC w/rflx Micro + Cult 3 Months R30.0 - Dysuria Vitamin D 25-OH Total 3 Months E55.9 - Vitamin D deficiency, unspecified Hemoglobin A1c 3 Months E11.9 - Type 2 diabetes mellitus without complications Lipid Panel 3 Months E78.00 - Pure hypercholesterolemia, unspecified Microalbumin, Random (w Creat) 3 Months E11.9 - Type 2 diabetes mellitus without complications Referrals Vascular Surgery Referral I89.0 - Lymphedema, not elsewhere classified Podiatry Referral E11.65 - Type 2 diabetes mellitus with hyperglycemia, G62.9 - Polyneuropathy, unspecified
[2023-12-04 14:16] VITALS: BP 132/80; PULSE 95; O2SAT 94; BMI 51.3
== END 2023-12-04 14:50 | disposition home or self-care (01) ==
PROVIDERS: PCP Internal Medicine; Visit Provider Internal Medicine
DX: E11.65 Type 2 diabetes mellitus with hyperglycemia (principal); F33.9 Major depressive disorder, recurrent, unspecified; E66.813 Obesity, class 3; Z68.43 Body mass index [BMI] 50.0-59.9, adult; E78.2 Mixed hyperlipidemia; I10 Essential (primary) hypertension; M51.362 Other intervertebral disc degeneration, lumbar region with discogenic back pain and lower extremity pain; M19.91 Primary osteoarthritis, unspecified site; K59.03 Drug induced constipation; E55.9 Vitamin D deficiency, unspecified; G47.00 Insomnia, unspecified; I89.0 Lymphedema, not elsewhere classified

== ENCOUNTER → 2023-12-04 14:06 | Outpatient (BNVA) | payer OTHER, SELFPAY | PROVIDERS: PCP Internal Medicine; Visit Provider Internal Medicine | DX: E78.2 Mixed hyperlipidemia (principal); E11.65 Type 2 diabetes mellitus with hyperglycemia; I10 Essential (primary) hypertension; M61.362 Calcification and ossification of muscles associated with burns, left lower leg; M19.91 Primary osteoarthritis, unspecified site; K59.03 Drug induced constipation; E55.9 Vitamin D deficiency, unspecified; I89.0 Lymphedema, not elsewhere classified; F41.1 Generalized anxiety disorder; F33.9 Major depressive disorder, recurrent, unspecified; E66.01 Morbid (severe) obesity due to excess calories; Z68.43 Body mass index [BMI] 50.0-59.9, adult; Z71.3 Dietary counseling and surveillance | CPT/HCPCS: 96127; 99212 ==

== ENCOUNTER 2023-12-14 14:29 | Outpatient (AMB) | payer OTHER, SELFPAY ==
--- NOTE | 2023-12-14 14:35 | A.OFFVIS_ITS ---
Intake Visit Reasons: Lymphedema Intake Note: New patient presents for lymphedema. States he has swelling in his feet and legs. Also experiences pain, cramping, numbness and tingling. Patient is diabetic and a smoker as well. He has discoloration on both legs as well. Accompanied by: Self / Same As Patient Allergies acetaminophen [From TYLENOL] Allergy (Unknown, Verified 12/14/23 14:39) UPSET STOMACH naproxen Adverse Reaction (Unknown, Verified 12/14/23 14:39) stomach upset HPI HPI Lymphedema: Details: Joshua is a pleasant 42-year-old male presenting today as a referral from his PCP for ongoing bilateral lower extremity swelling, pain, and discoloration. He states this has been going on for a few years now. He states the swelling and the pain occurs all the time. He does wear compression stockings most of the time which he states helps. He does elevate his legs in bed when he is not walking or moving around. He states the cramping gets worse when he walks up stairs and uses a cane for assistance. He states he also has ongoing back pain as well as numbness and tingling in both his feet. He is a smoker and smokes approximately 4-5 cigarettes a day. He is also a diabetic and takes oral medications and his most recent A1c is 9.3%. He denies any history of DVT or PE. He denies any history of phlebitis. [facility] Medical History Peripheral neuropathy Pain in both feet Lymphedema Impaired fasting glucose Edema of both feet Morbid obesity with BMI of 50.0-59.9, adult Medical marijuana use Smoker Depression Insomnia Vitamin D deficiency Drug-induced constipation Osteoarthritis Hyperglycemia Benign essential hypertension Mixed hyperlipidemia Lumbar disc herniation with myelopathy Lumbar degenerative disc disease Anxiety Surgical History History of appendectomy Family History Father Alive and well Mother COPD (chronic obstructive pulmonary disease) Brother Alive and well Social History Housing: Apartment Alcohol intake: current Alcohol intake frequency: holidays/special occasions only Patient Tobacco Use Status: Current everyday Tobacco user Cigarettes Per Day: 2 e-Cigarette/Vaping Use: Former Use Second Hand Smoke Exposure: Yes service: No Current occupational status: disabled Cognitive needs: No Hearing needs: No Vision needs: Yes Review of Systems Const Reports as per HPI and Denies weakness ENT Reports Normal hearing present and Denies dizziness Card Reports as per HPI, Denies chest pain, Denies chest pain at rest, Denies chest pain with activity, Denies dyspnea and Denies dyspnea on exertion Resp Reports as per HPI, Denies cough, Denies dyspnea and Denies dyspnea on exertion GI Reports as per HPI, Denies abdominal pain, Denies nausea and Denies vomiting Musc Denies numbness Skin/Breast Reports as per HPI, Denies erythema and Denies wounds Neuro Reports Normal hearing present, Denies dizziness, Denies numbness, Denies Sensory deficit (Neuro) and Denies weakness Psych Reports no additional complaints Endo Reports no additional complaints Physical Exam Const General: healthy appearing and no acute distress Orientation/consciousness: patient oriented x3 HEENT Head: Yes normal to inspection Ears: hearing grossly normal bilaterally Mouth: Normal oral and palatal mucosa present Resp Effort & Inspection: normal respiratory effort and able to speak in complete sentences Auscultation: clear to auscultation bilaterally Cardio Jugular venous distension: no JVD Rate: regular rate Rhythm: regular rhythm Heart sounds: S1 normal heart sound present and S2 normal heart sound present Bruits: no abdominal aortic bruits, no carotid bruits, no femoral bruits and no renal bruits Peripheral pulses: Peripheral pulses 2+ throughout GI Inspection: Yes normal to inspection Palpation (GI): No Abdominal aortic bruit present Skin Other: Bilateral lower extremities: Discoloration noted to mid pereira. +2 pitting edema. Palpable DP/PT pulses. No wounds, rashes, or lacerations noted. Scattered spider veins noted. No tortuous varicosities noted. CEAP: C - 4 E - primary A - superficial P - reflux General skin exam: no rashes or lesions noted Wounds: no wounds Hair: normal Neuro General: patient oriented x3 Cranial nerves: Yes Normal hearing present Cognition (Neuro): normal cognition Gait exam (Neuro): Normal gait present Motor exam (neuro): 5/5 motor strength present throughout Sensory Exam: No Sensory deficit (Neuro) Extrem General: Yes normal to inspection, Yes full ROM, Yes capillary refill normal and Yes normal gait Assessment & Plan Assessment & Plan (1) Varicose veins of both lower extremities with inflammation: Code(s): I83.11 - Varicose veins of right lower extremity with inflammation; I83.12 - Varicose veins of left lower extremity with inflammation Category: Medical Plan: Joshua presents today with concerns for over 2 years of bilateral lower extremity swelling, pain, and discoloration. He has used compression stockings with some relief as well as elevation. He states that none has been helping and it is getting worse. He states the swelling and pain occurs all of the time, the pain/cramping gets worse with ambulation. In short, the patient has evidence of venous insufficiency. I have discussed the pathophysiology with the patient. In addition I have provided informational material regarding venous disease to the patient. We have discussed conservative measures including compression, elevation, and exercise; we did discuss although it is painful if he could walk a little bit a day would be helpful. I have also provided a handout regarding appropriate use of compression stockings. I have taken the liberty of ordering venous insufficiency testing with the patient. They will follow up with me after testing. We did discuss since he only smokes a few cigarettes a day that he may consider trying to cut back even more. We did discuss good nutritional habits as well. The patient had an opportunity to ask questions regarding the treatment plan. All questions were answered. No major barriers to understanding were identified. The patient expressed understanding and agreement with the above treatment plan. The patient is aware they should contact our office by phone for worsening of the current condition or the appearance of new symptoms. Thank you for allowing me to participate in the vascular care of this patient. If you have any questions or concerns regarding the treatment for the above condition please do not hesitate to contact me. The office telephone contact is [phone]. This note is constructed using voice recognition software. While every effort has been made to ensure accuracy, physician/allergy/immunology errors may have been included. Thank you for allowing me to participate in the care of your patient. Yours sincerely, LEO Suarez Orders: Orders US venous duplex LE BI 1 Week I83.11 - Varicose veins of right lower extremity with inflammation, I83.12 - Varicose veins of left lower extremity with inflammation Coding Level of Care Code New Pt New Pt Level 4 (26948) Patient Type New Diagnoses Varicose veins of both lower extremities with inflammation I83.11; I83.12
== END 2023-12-14 14:55 | disposition home or self-care (01) ==
PROVIDERS: PCP Internal Medicine; Visit Provider Physician Assistant Surgical
DX: I83.11 Varicose veins of right lower extremity with inflammation (principal); I83.12 Varicose veins of left lower extremity with inflammation
CPT/HCPCS: 99204

== ENCOUNTER → 2023-12-14 14:29 | Outpatient (BNVA) | payer OTHER, SELFPAY | PROVIDERS: PCP Internal Medicine; Visit Provider Physician Assistant Surgical | DX: I83.11 Varicose veins of right lower extremity with inflammation (principal); I83.12 Varicose veins of left lower extremity with inflammation; I89.0 Lymphedema, not elsewhere classified; F17.210 Nicotine dependence, cigarettes, uncomplicated | CPT/HCPCS: 99202 ==

== ENCOUNTER 2023-12-22 12:57 | Outpatient (REF) | payer OTHER, SELFPAY ==
--- NOTE | ~2023-12-22 | US_ITS ---
EXAMINATION: US LOWER EXTREMITY VENOUS (REFLUX EXAM), BILATERAL CLINICAL INDICATION: There are close veins of right lower extremity COMPARISON: None. TECHNIQUE: Color flow triplex imaging and compression Doppler was performed to evaluate both the deep and the superficial systems bilaterally. To evaluate the superficial system, the examination was performed in the upright position. Color-flow Doppler ultrasound and compression ultrasound were utilized. In addition, maneuvers were utilized to demonstrate reflux. FINDINGS: 1. DEEP VENOUS ULTRASOUND OF THE RIGHT LOWER EXTREMITY: Common Femoral Vein: Compressible, normal respiratory variation and augmented flow. Femoral Vein: Compressible, normal color flow and augmentation. Popliteal Vein: Compressible, normal augmentation. Deep Reflux: Reflux in the right popliteal vein measures 1324 ms. There is no evidence of reflux in the common femoral vein or superficial femoral vein. There is no evidence of a Sloan's cyst. 2. SUPERFICIAL ULTRASOUND WITH DOPPLER OF RIGHT LOWER EXTREMITY: GREAT SAPHENOUS VEIN: Saphenofemoral Junction: 0.8 cm; Reflux: 0 ms Proximal Thigh: 0.8 cm; Reflux: 0 ms Mid Thigh: 0.5 cm; Reflux: 0 ms Above Knee: 0.4 cm; Reflux: 0 ms At Knee: 0.3 cm; Reflux: 0 ms Below Knee: 0.4 cm; Reflux: 1452 ms Mid Calf: 0.3 cm; Reflux: 0 ms Ankle: 0.3 cm; Reflux: 0 ms SMALL SAPHENOUS VEIN: Saphenopopliteal Junction: 0.3 cm; Reflux: 0 ms Proximal: 0.1 cm; Reflux: 0 ms Distal: 0.3 cm; Reflux: 0 ms PERFORATORS: Location: Mid calf Size: 0.2; Reflux: 0 ms Location: Distal calf, 20 cm from heel Size: 0.2; Reflux: 3576 ms VARICOSITIES: None imaged 3. DEEP VENOUS ULTRASOUND OF THE LEFT LOWER EXTREMITY: Common Femoral Vein: Compressible, normal respiratory variation and augmented flow. Femoral Vein: Compressible, normal color flow and augmentation. Popliteal Vein: Compressible, normal augmentation. Deep Reflux: There is no evidence of reflux in the deep system in either the common femoral vein, superficial femoral or the popliteal vein. There is no evidence of a Sloan's cyst. 4. SUPERFICIAL ULTRASOUND WITH DOPPLER OF LEFT LOWER EXTREMITY: GREAT SAPHENOUS VEIN: Saphenofemoral Junction: 0.8 cm; Reflux: 0 ms Proximal Thigh: 0.5 cm; Reflux: 0 ms Mid Thigh: 0.5 cm; Reflux: 0 ms Above Knee: 0.4 cm; Reflux: 0 ms At Knee: 0.4 cm; Reflux: 0 ms Below Knee: 0.4 cm; Reflux: 0 ms Mid Calf: 0.3 cm; Reflux: 0 ms Ankle: 0.3 cm; Reflux: 0 ms SMALL SAPHENOUS VEIN: Saphenopopliteal Junction: 0.2 cm; Reflux: 0 ms Proximal: 0.2 cm; Reflux: 0 ms Distal: 0.4 cm; Reflux: 2924 ms PERFORATORS: Location: Distal thigh Size: 0.2; Reflux: 0 ms Location: Mid calf Size: 0.3; Reflux: 0 ms VARICOSITIES: None Imaged US/US venous duplex LE BI IMPRESSION: 1. No evidence of deep venous thrombosis. 2. Reflux in the right popliteal vein measures 1324 ms. No reflux in the remaining deep system of the bilateral lower extremities. 3. Focal incompetence in the right great saphenous vein at the level of the proximal calf with reflux measuring 1452 ms. 4. Focal incompetence in the left small saphenous vein at the level of the distal calf with reflux measuring 2924 ms. 5. Competent left great saphenous vein and right small saphenous vein. Electronically signed by: Christa Almanza MD 01/01/2024 05:20 PM [facility]
== END 2023-12-22 12:58 | disposition home or self-care (01) ==
LOC: HO.US 12:57
PROVIDERS: PCP Internal Medicine; Visit Provider Physician Assistant Surgical
DX: I83.11 Varicose veins of right lower extremity with inflammation (principal); I83.12 Varicose veins of left lower extremity with inflammation
CPT/HCPCS: 93970

== ENCOUNTER 2023-12-31 12:53 | Outpatient (AMB) | payer OTHER, SELFPAY ==
--- NOTE | 2023-12-31 13:12 | A.OFFVIS_ITS ---
Vital Signs 12/31/23 13:13 Height 5 ft 4 in Weight 299 lb BMI 51.3 Intake Visit Reasons: follow up s/p US 12/22/23 Intake Note: follow up US 12/22/23,for LE swelling w/ pain, cramping, numbness and tingling. Also has bilateral discoloration. 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 He continues with swelling in his lower extremities; he has been using his compression stockings and elevating his legs as needed. He denies any pain in his lower extremities. He states last time he had pain was approximately 3 days ago, he rested and it felt better. [facility] Medical History Peripheral neuropathy Pain in both feet Lymphedema Impaired fasting glucose Edema of both feet Morbid obesity with BMI of 50.0-59.9, adult Medical marijuana use Smoker Depression Insomnia Vitamin D deficiency Drug-induced constipation Osteoarthritis Hyperglycemia Benign essential hypertension Mixed hyperlipidemia Lumbar disc herniation with myelopathy Lumbar degenerative disc disease Anxiety Surgical History History of appendectomy Family History Father Alive and well Mother COPD (chronic obstructive pulmonary disease) Brother Alive and well Social History Housing: Apartment Alcohol intake: current Alcohol intake frequency: holidays/special occasions only Patient Tobacco Use Status: Current everyday Tobacco user Cigarettes Per Day: 2 e-Cigarette/Vaping Use: Former Use Second Hand Smoke Exposure: Yes service: No Current occupational status: disabled Cognitive needs: No Hearing needs: No Vision needs: Yes Review of Systems Const Reports as per HPI and Denies weakness ENT Reports Normal hearing present and Denies dizziness Card Reports as per HPI, Denies chest pain, Denies chest pain at rest, Denies chest pain with activity, Denies dyspnea and Denies dyspnea on exertion Resp Reports as per HPI, Denies cough, Denies dyspnea and Denies dyspnea on exertion GI Reports as per HPI, Denies abdominal pain, Denies nausea and Denies vomiting Musc Denies numbness Skin/Breast Reports as per HPI, Denies erythema and Denies wounds Neuro Reports Normal hearing present, Denies dizziness, Denies numbness, Denies Sensory deficit (Neuro) and Denies weakness Psych Reports no additional complaints Endo Reports no additional complaints Physical Exam Vital Signs: BMI result Body Mass Index 51.3 Const General: healthy appearing and no acute distress Orientation/consciousness: patient oriented x3 HEENT Head: Yes normal to inspection Ears: hearing grossly normal bilaterally Mouth: Normal oral and palatal mucosa present Resp Effort & Inspection: normal respiratory effort and able to speak in complete sentences Auscultation: clear to auscultation bilaterally Cardio Jugular venous distension: no JVD Rate: regular rate Rhythm: regular rhythm Heart sounds: S1 normal heart sound present and S2 normal heart sound present Bruits: no abdominal aortic bruits, no carotid bruits, no femoral bruits and no renal bruits Peripheral pulses: Peripheral pulses 2+ throughout GI Inspection: Yes normal to inspection Palpation (GI): No Abdominal aortic bruit present Skin General skin exam: no rashes or lesions noted Wounds: no wounds Hair: normal Neuro General: patient oriented x3 Cranial nerves: Yes Normal hearing present Cognition (Neuro): normal cognition Gait exam (Neuro): Normal gait present Motor exam (neuro): 5/5 motor strength present throughout Sensory Exam: No Sensory deficit (Neuro) Extrem Other: Bilateral lower extremities: Discoloration noted mid shins down to the ankles. Plus one pitting edema. Palpable DP pulses. No wounds, rashes, or lacerations noted. No tortuous varicosities noted. General: Yes normal to inspection, Yes full ROM, Yes capillary refill normal and Yes normal gait Results Reviewed Results Reviewed: Brief summary of venous insufficiency testing is as follows: right great saphenous vein: negative right small saphenous vein: negative right accessory vein: none present left great saphenous vein: negative left small saphenous vein: negative left accessory vein: none present Please note there is no evidence of any venous aneurysms or significant tortuosity Assessment & Plan Assessment & Plan (1) Varicose veins of both lower extremities with inflammation: Code(s): I83.11 - Varicose veins of right lower extremity with inflammation; I83.12 - Varicose veins of left lower extremity with inflammation Category: Medical Plan: Joshua is presenting today as a follow-up to his ultrasound which occurred on 12/22/2023. The results of the were negative for any venous insufficiency. He continues to use compression stockings and elevation, which he states helps with the swelling. He only has intermittent pain at this point and states with rest, the pain goes away. He is happy with the results of the ultrasound that it was not a venous issue; however, it is frustrating that he continues with swelling. We discussed continuing with the conservative measures. We discussed following up with his PCP for further evaluation and treatment options. We thank you for the consult. We discussed with the patient that he is able to follow up with us again if the swelling continues or progresses and he has varicose veins/spider veins. If there are any questions or concerns, please do not hesitate to reach out to us. Coding Level of Care Code Est Pt Level 4 (25033) Diagnoses Varicose veins of both lower extremities with inflammation I83.11; I83.12 Comment Review of ultrasound
[2023-12-31 13:13] VITALS: BMI 51.3
== END 2023-12-31 13:36 | disposition home or self-care (01) ==
LOC: HO.HVS 12:53
PROVIDERS: PCP Internal Medicine; Visit Provider Physician Assistant Surgical
DX: I83.11 Varicose veins of right lower extremity with inflammation (principal); I83.12 Varicose veins of left lower extremity with inflammation
CPT/HCPCS: 99214

== ENCOUNTER → 2023-12-31 12:53 | Outpatient (BNVA) | payer OTHER, SELFPAY | PROVIDERS: PCP Internal Medicine; Visit Provider Physician Assistant Surgical | DX: I83.11 Varicose veins of right lower extremity with inflammation (principal); I83.12 Varicose veins of left lower extremity with inflammation; F17.210 Nicotine dependence, cigarettes, uncomplicated | CPT/HCPCS: 99212 ==

== ENCOUNTER 2024-04-21 11:03 | Outpatient (AMB) | payer OTHER, SELFPAY ==
--- NOTE | 2024-04-21 11:05 | MHC.OFFVIS ---
Vital Signs 04/21/24 11:12 Height 5 ft 4 in Weight 280 lb 6.848 oz BMI 48.1 Respiration 18 Pulse 90 Intake Visit Reasons: gallbladder Intake Note: Patient is seen in office for evaluation of the gallbladder. 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 Accompanied by: Self / Same As Patient Allergies acetaminophen [From TYLENOL] Allergy (Unknown, Verified 04/21/24 11:09) UPSET STOMACH naproxen Adverse Reaction (Unknown, Verified 04/21/24 11:09) stomach upset Medication List - Last Reconciled 04/21/24 by Christopher Dodge MD blood pressure kit-extra large As directed blood pressure monitor As directed blood sugar diagnostic (FreeStyle Lite Strips) USE TO TEST ONCE DAILY DIRECTED blood-glucose meter (FreeStyle Lite Meter kit) As directed cholecalciferol (vitamin D3) 100 mcg (2 x 50 mcg (2,000 unit)) PO DAILY 90 days escitalopram oxalate 20 mg PO DAILY gabapentin 100 mg PO BEDTIME 90 days lancets (FreeStyle Lancets) As directed lisinopril 20 mg PO DAILY 90 days metformin ER 500 mg PO BID 90 days oxycodone 15 mg PO Q8H PRN 14 days sitagliptin phosphate (Januvia) 25 mg PO DAILY sucralfate (Carafate) 10 mL PO BID HPI Comments Details: 43-year-old male patient presenting with complaints of a epigastric and right upper quadrant abdominal pain. The pain has been intermittent over the past year but seems to be increasing in severity to the point where he is having difficulty eating even light foods without developing increased abdominal pain nausea. He was evaluated in the emergency department on 09/12/2023. Abdominal ultrasound and CT abdomen and pelvis confirmed 2 large gallstones within the gallbladder. Laboratories revealed an elevated WBC of 14.4. Stool evaluation at that time revealed C difficile toxin suggestive of colonization. He continues to report diarrhea 3-4 times daily. [facility] Medical History Peripheral neuropathy Pain in both feet Lymphedema Impaired fasting glucose Edema of both feet Morbid obesity with BMI of 50.0-59.9, adult Medical marijuana use Smoker Depression Insomnia Vitamin D deficiency Drug-induced constipation Osteoarthritis Hyperglycemia Benign essential hypertension Mixed hyperlipidemia Lumbar disc herniation with myelopathy Lumbar degenerative disc disease Anxiety Surgical History History of appendectomy Family History Father Alive and well Mother COPD (chronic obstructive pulmonary disease) Brother Alive and well Social History Housing: Apartment Alcohol intake: current Alcohol intake frequency: holidays/special occasions only Patient Tobacco Use Status: Current everyday Tobacco user Cigarettes Per Day: 2 e-Cigarette/Vaping Use: Former Use Second Hand Smoke Exposure: Yes service: No Current occupational status: disabled Cognitive needs: No Hearing needs: No Vision needs: Yes Review of Systems Const All systems reviewed & are unremarkable except as noted in HPI and below Physical Exam Const General: no acute distress Nutritional Appearance: overweight Orientation/consciousness: patient oriented x3 Limitations: ambulation with cane HEENT Head: Yes normocephalic and Yes atraumatic Eyes Sclerae: sclerae normal Resp Effort & Inspection: normal respiratory effort, no audible wheezes, no cough and no respiratory distress GI Inspection: Yes normal to inspection Palpation (GI): Soft to palpation, Tenderness to palpation present (GI) in the epigastrum and in the RUQ, no guarding, not rigid and No hepatosplenomegaly present Skin General skin exam: no rashes or lesions noted Neuro General: patient oriented x3 Extrem General: Yes no clubbing, cyanosis or edema Assessment & Plan Assessment & Plan (1) Symptomatic cholelithiasis: Code(s): K80.20 - Calculus of gallbladder without cholecystitis without obstruction Category: Medical (2) Clostridioides difficile carrier: Code(s): Z22.1 - Carrier of other intestinal infectious diseases Category: Medical Plan 43-year-old male patient presenting with complaints of abdominal pain in the epigastrium and right upper quadrant found to have several large gallstones within the gallbladder. Findings are suggestive of symptomatic cholelithiasis. His pain seems to be increasing in severity and frequency. The pain is affecting his ability to eat effectively. In addition the patient has persistent diarrhea 3-4 times daily which may be from his gallbladder however he was previously diagnosed with C difficile colonization. The patient does seem to be having severe gallbladder symptoms and may benefit from a laparoscopic or possible open cholecystectomy. I reviewed the procedure, risks, and alternatives in detail and he consents to a laparoscopic or possible open cholecystectomy. This will be scheduled as a short-stay surgery at his earliest convenience. Coding Level of Care Code New Pt Level 4 (95451) Diagnoses Symptomatic cholelithiasis K80.20 Clostridioides difficile carrier Z22.1
[2024-04-21 11:12] VITALS: PULSE 90; RESP 18; BMI 48.1
--- OUTSIDE RECORDS SUMMARY | 2024-04-21 13:19 | XMS_ITS | Clinical Summary ---
Author Organization 175 [facility] g Address 175 [place] [address] Phone Care Team Providers Care Ssas Developer Name Role Phone Carlos Alberto Patel MD Primary Care Provider [phone] Allergies No known active allergies Medications ammonium lactate (AmLactin) 12 % lotion Apply topically if needed for dry skin. 400 g 2 5 03/23/19 26 Active Encounters Date Type Department Care Team Description 03/23/2024 1:00 PM EST Office Visit Orthopedic [facility] [address] [phone] Rajan Peralta DPM Controlled type 2 diabetes with neuropathy (CMS/HCC) (Primary Dx); Arthritis of both feet; PVD (peripheral vascular disease) (CMS/HCC); Ingrown left big toenail; Xerosis cutis; Dermatophytosis, nail from Last 3 Months Social History Tobacco Use Types Packs/Day Years Used Date Smoking Tobacco: Never Assessed Sex and Gender Information Value Date Recorded Sex Assigned at Not on file Legal Sex Male 4:38 PM EDT Gender Identity Not on file Sexual Orientation Not on file Plan of Treatment Upcoming Encounters Date Type Department Care Team ([facility] st Contact Info) Description 05/25/2024 2:00 PM EDT Office Visit Orthopedic [facility] [address] [phone] Rajan Peralta DPM [address] [phone] Health Maintenance Due Date Last Done Comments Diabetes: Annual GFR (Glomerular Filtration Rate) 1978 Diabetes: Annual Foot Exam 1988 Diabetes: Annual Retina Eye Exam 1988 Hepatitis B Vaccines (1 of 3 - 19+ 3-dose series) 1997 06/28/2001, 03/29/2001, 02/03/2001 Pneumococcal Vaccine: Pediatrics (0 to 5 Years) and At-Risk Patients (6 to 64 Years) (1 of 2 - PCV) 1997 COVID-19 Vaccine ( - season) 2023 Influenza Vaccine (#1) 2023 9, 01/19/2018, 12/10/2016, Additional history exists Cholesterol Screening (Lipid Panel) 12/20/2023 Colorectal Cancer Screening: Colonoscopy 12/20/2023 Depression Screening 12/20/2023 HIV Screening 12/20/2023 Hepatitis C Screening 12/20/2023 Social Influencers of Health Screening 12/20/2023 Diabetes: Annual Urine Albumin-Creatinine Ratio (uACR) 03/23/2024 Diabetes: Blood Sugar Control Test (HGBA1C) 03/23/2024 Hypertension/CHF/CAD Annual BMP Blood Test 03/23/2024 DTaP,Tdap,and Td Vaccines (8 - Td or Tdap) 01/27/2026 01/28/2016, 01/27/2012, 05/20/2001, Additional history exists HIB Vaccines Aged Out 08/25/1991, 04/1990, 11/02/1990, Additional history exists No longer eligible based on patient's age to complete this topic MMR Vaccines Completed 08/25/1991, 01/25/1991 IPV Vaccines Completed 04/05/1996, 03/1991, 05/13/1990, Additional history exists HPV Vaccines Aged Out No longer eligi ble based on patient's age to complete this topic Hepatitis A Vaccines Aged Out No long er eligible based on patient's age to complete this topic Meningococcal ACWY Vaccine Aged Out N o longer eligible based on patient's age to complete this topic Meningococcal B Vacine Aged Out No lo nger eligible based on patient's age to complete this topic RSV Immunization Patients Under 20 months Aged Out No longer eligible based on patient's age to complete this topic Varicella Vaccines Aged Out No longer eligible based on patient's age to complete this topic Insurance [facility] Care Teams Ssas Developer Relationship Specialty Start Date End Date Carlos Alberto Patel MD [address] [place] [address] Dr [address] [place], [place] PCP - General 12/09/23
--- OUTSIDE RECORDS SUMMARY | 2024-04-21 13:19 | XMS_ITS | Encounter Summary ---
Author Organization [facility] Address [address] [place] [address] Care Team Providers Care Band Sewer Name Role Phone Carlos Alberto Patel MD Primary Care Provider [phone] Reason for Visit * Reason Comments DM Foot Care MORTGAGE ADVISOR DIABETIC FOOT CAR E * Orthopedic (Routine) - Closed Specialty Diagnoses / Procedures Referred By Contact Referred To Contact Podiatry / Orthopaedic Surgery Diagnoses Diabetic foot (CMS/HCC) Procedures AMB REFERRAL TO PODIATRY Carlos Alberto Patel MD [address] [place] [address] Phone: tel: Orthopedic Surgery [facility] [address] [phone] Phone: tel: fax: Referral ID Status Reason Start Date Expiration Date V isits Requested Visits Authorized [id number] Closed Consult and Treat 12/26/2023 12/25/2024 1 1 Encounter Details Date Type Department Care Team ([facility] st Contact Info) Description 03/23/2024 1:00 PM EST Office Visit Orthopedic [place] [phone] [phone] Rajan Peralta DPM [address] [address] Controlled type 2 diabetes with neuropathy (CMS/HCC) (Primary Dx); Arthritis of both feet; PVD (peripheral vascular disease) (CMS/HCC); Ingrown left big toenail; Xerosis cutis; Dermatophytosis, nail Social History Tobacco Use Types Packs/Day Years Used Date Smoking Tobacco: Never Assessed Sex and Gender Information Value Date Recorded Sex Assigned at Not on file Legal Sex Male 4:38 PM EDT Gender Identity Not on file Sexual Orientation Not on file documented as of this encounter Ordered Prescriptions Prescription Sig Dispense Quantity Refills Last Filled Start Date End Date ammonium lactate (AmLactin) 12 % lotion Apply topically if needed for dry skin. 400 g 2 03/23/2024 6 documented in this encounter Progress Notes * Rajan Peralta DPM - 03/23/2024 1:00 PM EST Referring MD: Carlos Alberto Patel MD Last PCP visit: 02/06/2024 IDENTIFIER: @TITLE@ Jenni is a 43 y.o. year old male who presents for consultation. CC: Bilateral foot pain HPI: Patient presents to office today for initial diabetic foot evaluation as recommended by their primary care physician. Patient states that they have been diabetic for the past few years and has tingling numbness of feet bilaterally. Denies any history of ulceration, or infection. Patient would like to inquire about their pedal hygiene, as their toenails have become elongated and painful. Patient is not using antifungals at this time. Patient is wearing good supportive shoes at this time. Patient reports mild calluses that are becoming bothersome. Patient with minimal other pedal complaints at this time. Patient's FBS this AM was unchecked Recent A1C is %. Unknown ROS: GENERAL: Pt denies nausea, fever, vomiting, chills, or shortness of breath. Pt in NAD. CARDIOLOGY: pt denies chest pain, palpitations LUNGS: pt denies shortness of breath MUSCULOSKELETAL: See HPI, otherwise no joint pain or swelling, back pain, or muscle pain. SKIN: see HPI, otherwise no lesions, rash or itching NEURO: No persistent headache, weakness or numbness The remainder of the review of systems is noncontributory PAST MEDICAL HISTORY: There is no problem list on file for this patient. SOCIAL HISTORY: Social History Tobacco Use Smoking status: Not on file Smokeless tobacco: Not on file Substance Use Topics Alcohol use: Not on file ACTIVE MEDICATIONS: No outpatient medications have been marked as taking for the 03/23/24 encounter (Office Visit) with Rajan Peralta DPM. ALLERGIES: @ALL@ PHYSICAL EXAM: There were no vitals taken for this visit. PODIATRIC EXAMINATION: GENERAL: Patient appears well nourished, with NAD. VASCULAR: Dorsalis pedis pulses are 1/4 bilaterally and Posterior tibial pulses are 0/4 bilaterally. Capillary filling time within normal limits the digits. No pallor on elevation or rubor on dependency. Positive hair growth. Many varicosities. +2 pitting edema bilateral legs. Denies rest pain or claudication pain. NEUROLOGICAL: Sharp/dull sensation intact, protective sensation diminished on [place]. Multiple peripheral neuropathies throughout the feet bilaterally ORTHOPEDIC: Good muscle strength 5/5 of all flexors and extensors. Dorsi flexion of ankle ,10 degrees, plantar flexion WNL. No muscle atrophy. 30 changes of midfoot with dorsal exostoses that are palpable. Flexible flatfoot deformity bilaterally. Curvature to the digits 2 through 5 which are reducible. DERMATOLOGICAL:.Multiple areas of xerosis to the plantar aspect of the feet bilaterally. Normal skin temperature, normal skin turgor. Nails are elongated dystrophic discolored x 10 with somewhat debris. Ingrowing toenail to the left lateral border. BIOMECHANICS: STJ ROM wnl, MTJ ROM wnl, 1st MPJ ROM wnl. IMPRESSION: 1. Controlled type 2 diabetes with neuropathy (CMS/HCC) 2. Arthritis of both feet 3. PVD (peripheral vascular disease) (CMS/HCC) 4. Ingrown left big toenail 5. Xerosis cutis 6. Dermatophytosis, nail PLAN: Pt was seen and examined, history reviewed. Patient educated on the importance of good pedal hygiene and tight blood glucose control. Patient encouraged to maintain a healthy lifestyle with a well-balanced diet. Patient should never go barefoot and wear supportive shoe gear. Patient should aim for A1c less than 7% every month. Continue with regular appointments with PMD or manufacturing supervisor 2nd shift for tight medical management Patient with symptoms of arthritic changes in the pedal joints. Patient showed good understanding of etiology of arthritis. Patient is aware that conservative options include padding, over the counter products, orthotics, and shoes. Patient aware that they are other treatments available such as oral anti- inflammatories, injections, and steroid dose packs. Patient understands that these measures are conservative measures to help handle the osteoarthritic flares. Patient with known history of peripheral vascular disease including problems with swelling and withvaricosities. Patient aware of concerning factors in the lower extremity and when to contact office. We will continue to monitor soft tissue envelope. If no progression in symptoms, patient may benefit from vascular surgery evaluation. Patient with diffuse Xerosis to bilateral feet. Patient will benefit from additional moisture to feet to prevent fissures and crack which could lead to pain or even infection. Rx given for ammonium lactate 12% to be applied daily. Patient encouraged to apply lotion to lightly moistened skin to allow for better absorption. Patient with symptoms of ingrowing toenail with associated paronychia. Patients conditioned explained, both conservatively and surgically. Patient opted for conservative treatment. Site irrigated and cleansed today. Nail debridement performed to nails 1-5 bilateral as nails were described to be causing pain and difficulty for walking while in shoegear at their previous length. They were debrided in thickness andlength, with no incident. Clinical evidence of mycosis is documented which required active treatment. Patient expressed immediate relief. Patient is to RTC in 9 weeks Rajan Peralta DPM cc: Carlos Alberto Patel MD documented in this encounter Plan of Treatment Upcoming Encounters Date Type Department Care Team (Late st Contact Info) Description 05/25/2024 2:00 PM EDT Office Visit Orthopedic Surgery - [address] [phone] Rajan Peralta DPM [address] [phone] documented as of this encounter Visit Diagnoses Diagnosis Controlled type 2 diabetes with neuropathy ([facility])- Primary Type II or unspecified type diabetes mellitus with neurological manifestations, not stated as uncontrolled Arthritis of both feet PVD (peripheral vascular disease) (CMS/HCC) Unspecified peripheral vascular disease Ingrown left big toenail Ingrowing nail Xerosis cutis Other specified disease of sebaceous glands Dermatophytosis, nail Dermatophytosis of nail documented in this encounter Care Teams Band Sewer Relationship Specialty Start Date End Date Carlos Alberto Patel MD [address] [place] [address] PCP - General 12/09/23 documented as of this encounter
--- OUTSIDE RECORDS SUMMARY | 2024-04-21 13:19 | XMS_ITS | Clinical Summary ---
Author Organization [employer] Address [address] [facility] 7t [place] [address] Care Team Providers Care Casework Supervisor Name Role Phone Unavailable Primary Care Provider Unavailabl e Allergies Active Allergy Reactions Criticality Noted Date Comments Aspirin 11/03/2023 Medications cholecalciferol VITAMIN D (Vitamin D-3) 50 MCG (1999) capsule Take by mouth Once per day. 3 Active cefuroxime (Ceftin) 500 MG tablet TAKE 1 TABLET ORALLY 2 TIMES A DAY FOR 7 DAYS 4 Active ALPRAZolam (Xanax) 0.25 MG tablet Take by mouth. Activ e lisinopril (Prinivil, Zestril) 10 MG split tablet Take 1 tablet by mouth Once per day. 4 Active metFORMIN XR (Glucophage-XR) 500 MG 24 hr tablet Take 500 mg by mouth 2 times daily. 4 Active oxyCODONE (Roxicodone) 15 MG immediate release tablet 4 Active sucralfate (Carafate) 1 g tablet TAKE 1 TABLET ORALLY 2 TIMES A DAY NEEDED FOR ABDOMINAL PAIN FOR 2 WEEKS 4 Active FREESTYLE LITE test strip USE TO TEST ONCE DAILY DIRECTED 4 Active escitalopram (Lexapro) 20 MG tablet 4 Active Active Problems Problem Noted Date Diagnosed Date Homeless 04/27/2013 Hypertension 04/27/2013 Hypertriglyceridemia 04/27/2013 Microalbuminuria 04/27/2013 Mixed anxiety and depressive disorder 04/27/2013 Backache 02/28/2013 Degeneration of lumbar intervertebral disc 09/13 Resolved Problems Problem Noted Date Diagnosed Date Resolved Date Tobacco dependence syndrome 09/13/2012 11/03/2023 Social History Tobacco Use Types Packs/Day Years Used Date Smoking Tobacco: Every Day Cigarettes Smokeless Tobacco: Never Tobacco Cessation:Ready to Q uit: Not Asked; Counseling Given: Not Answered Sex and Gender Information Value Date Recorded Sex Assigned at Male 12/23/2021 10:19 AM EDT Legal Sex Male 10:19 AM EDT Gender Identity Male 12/23/2021 10:19 AM EDT Sexual Orientation Choose not to disclose 2021 10:19 AM EDT Last Filed Vital Signs Vital Sign Reading Time Taken Comments Blood Pressure 168/120 11/03/2023 2:26 PM EDT Pulse - - Temperature - - Respiratory Rate - - Oxygen Saturation - - Inhaled Oxygen Concentration - - Weight - - Height - - Body Mass Index - - Plan of Treatment Health Maintenance Due Date Last Done Comments CT Colonography 1978 Colonoscopy 1978 Colorectal Cancer Screening 1978 Depression Screening 1978 FIT DNA/Cologuard 1978 FIT 1978 FOBT 1978 HIV Screening 1978 Lipid Panel 1978 SDOH Screening 1978 Sigmoidoscopy 1978 Alcohol/Substance Use Screening 1990 Family Planning (PISQ) 1993 Hepatitis C Screening 1996 Hepatitis B Vaccines (1 of 3 - 19+ 3-dose series) 1997 06/28/2001, 03/29/2001, 02/03/2001 Pneumococcal Vaccine: Pediatrics (0 to 5 Years) and At-Risk Patients (6 to 49) Years) (1 of 2 - PCV) 1997 Dental Prophylaxis 05/11/2013 11/10/2012 Dental Oral Exam 09/21/2013 03/23/2013 Dental X-Ray: Bitewings 03/24/2014 03/23/2013, 03/04 COVID-19 Vaccine ( season) 2023 Influenza Vaccine (#1) 2023 9, 01/19/2018, 12/10/2016, Additional history exists Tobacco Screening 11/02/2024 11/03/2023 DTaP/Tdap/Td Vaccines (8 - Td or Tdap) 01/27/2026 01/28/2016, 01/27/2012, 05/20/2001, Additional history exists Dental X-Ray: Full Mouth 11/03/2026 11/03/2023, 02/23 Zoster Vaccines (1 of 2) 2028 RSV Patients and Patients Aged 60 years or older (1 - 1-dose 75+ series) 2053 HIB Vaccines Aged Out 08/25/1991, 04/1990, 11/02/1990, Additional history exists No longer eligible based on patient's age to complete this topic IPV Vaccines Completed 04/05/1996, 03/1991, 05/13/1990, Additional history exists HPV Vaccines Aged Out No longer eligi ble based on patient's age to complete this topic Hepatitis A Vaccines Aged Out No long er eligible based on patient's age to complete this topic Meningococcal Vaccine Aged Out No christelle padmini eligible based on patient's age to complete this topic RSV under 20 months Aged Out No longe r eligible based on patient's age to complete this topic Rotavirus Vaccines Aged Out No longer eligible based on patient's age to complete this topic Procedures Procedure Name Priority Date/Time Associated Diagnosis Comments PANORAMIC RADIOGRAPHIC IMAGE Routine 11/03/2023 2:30 PM EDT Dental caries Dental abscess BITEWINGS - 4 RADIOGRAPHIC IMAGES Routine 03/23/2013 12:00 AM EST PERIODIC ORAL EVALUATION - ESTABLISHED PATIENT Routine 03/23/2013 12:00 AM EST PROPHYLAXIS - ADULT Routine 11/10/2012 1 2:00 AM EDT from Last 3 Months or Most Recently Relevant to Health Maintenance Insurance [facility] MEDICAID STAND ADULT
== END 2024-04-21 11:42 | disposition home or self-care (01) ==
PROVIDERS: PCP Internal Medicine; Visit Provider Surgery
DX: K80.20 Calculus of gallbladder without cholecystitis without obstruction (principal); Z22.1 Carrier of other intestinal infectious diseases
CPT/HCPCS: 99204

== ENCOUNTER → 2024-04-21 11:03 | Outpatient (BNVA) | payer OTHER, SELFPAY | PROVIDERS: PCP Internal Medicine; Visit Provider Surgery | DX: K80.20 Calculus of gallbladder without cholecystitis without obstruction (principal); Z22.1 Carrier of other intestinal infectious diseases | CPT/HCPCS: 99202 ==

== ENCOUNTER 2024-06-02 16:00 | Outpatient (REF) | payer OTHER, SELFPAY ==
[2024-06-02 16:18] LABS: MANUAL DIFF FLAG NO
[2024-06-02 17:12] LABS: Basophils Absolute Auto 0.1 X10*3/uL (0.0-0.2); Basophils Percent Auto 0.6 % (0-2); Eosinophils Absolute Auto 0.3 X10*3/uL (0.0-0.4); Hemoglobin 16.5 g/dl (14.0-18.0); Imm Gran Abs Auto 0.06 X10*3/uL (0.00-0.03); Imm Gran Pct Auto 0.6 % (0.0-0.4); Lymphocytes Absolute Auto 3.7 X10*3/uL (1.2-4.9); Lymphocytes Percent Auto 39.7 % (20-40); Mean Corpuscular HGB Conc 32.4 g/dl (31.0-36.0); Mean Corpuscular Hemoglobin 25.2 pg (27.0-33.0); Mean Corpuscular Volume 77.7 fL (80.0-98.0); Mean Platelet Volume 11.8 fL (9.4-12.4); Monocytes Absolute Auto 0.9 X10*3/uL (0.1-1.2); Monocytes Percent Auto 9.1 % (2-11); Neutrophils Absolute Auto 4.4 x10*3/uL (2.0-8.3); Platelet Count 197 X10*3/uL (160-400); Red Blood Count 6.56 X10*6/uL (4.60-5.80); Red Cell Distribution Width 13.8 % (11.0-16.0); White Blood Count 9.4 X10*3/uL (4.8-10.8)
[2024-06-02 17:24] LABS: Appearance Urine Clear; Color Urine Yellow; Glucose Urine UA 250 mg/dL (Negative); Leukocyte Esterase Urine Negative (Negative); Nitrite Urine Negative (Negative); PH 5.5 (5.0-9.0); Specific Gravity - Urine 1.025 (1.005-1.025); Urine Blood Negative (Negative); Urine Ketones Trace mg/dL (Negative); Urine Protein Trace mg/dL (Neg-Trace)
[2024-06-02 17:30] LABS: Estimated Average Glucose 240 mg/dL; Hemoglobin A1C 366.4262 umol/L; Total Hemoglobin (HGBA1C) 4253.2317 umol/L
[2024-06-02 17:48] LABS: Alanine Aminotransferase 40 U/L (0-40); Albumin Level 4.3 g/dL (3.5-5.0); Alkaline Phosphatase 109 U/L (39-117); Anion Gap 15 (12-20); Aspartate Amino Transferase 31 U/L (5-37); Bilirubin Total 0.4 mg/dL (0.0-1.0); Blood Urea Nitrogen 14 mg/dL (9-16); Calcium 9.8 mg/dL (8.4-10.2); Carbon Dioxide 27 mmol/L (22-29); Chloride 101 mmol/L (96-108); Cholesterol 157 mg/dL (<200); Estimated Glomerular Filt Rate > 60; Glucose Fasting 187 mg/dL (60-99); HDL Cholesterol 32 mg/dL (>40); LDL Cholesterol Calculated 88 mg/dL (<100); Potassium 4.3 mmol/L (3.3-5.1); Sodium 139 mmol/L (135-145); Total Protein 8.2 g/dL (6.5-8.0); Triglycerides 188 mg/dL (<150)
--- OUTSIDE RECORDS SUMMARY | 2024-06-02 17:58 | XMS_ITS | Clinical Summary ---
Author Organization [employer] Address [address] [facility] 7t [place] [address] Care Team Providers Care Nick Setter Name Role Phone Unavailable Primary Care Provider [...] Most Recently Relevant to Health Maintenance Insurance [facility] MEDICAID STAND ADULT
--- OUTSIDE RECORDS SUMMARY | 2024-06-02 17:58 | XMS_ITS | Clinical Summary ---
Author Organization 175 [facility] g Address [address] [place] [address] Phone Care Team Providers Care Professor Of Physical Education Name Role Phone Carlos Alberto Patel MD Primary Care Provider Allergies No known active allergies Medications ammonium lactate (AmLactin) 12 % lotion Apply topically if needed for dry skin. 400 g 2 5 03/23/19 26 Active Encounters Date Type Department Care Team Description 03/23/2024 1:00 PM EST Office Visit Orthopedic Surgery [facility] [address] [phone] Rajan Peralta DPM Controlled type 2 diabetes with neuropathy (CMS/HCC V24, CMS/HCC V28) (Primary Dx); Arthritis of both feet; PVD (peripheral vascular disease) (CMS/HCC V24); Ingrown left big toenail; Xerosis cutis; Dermatophytosis, [...] Upcoming Encounters Date Type Department Care Team ([facility] st Contact Info) Description 08/08/2024 1:00 PM EDT Office Visit Orthopedic Surgery [facility] [address] [phone] Rajan Peralta DPM [address] [address] Health Maintenance Due Date Last Done Comments Diabetes: Annual GFR (Glomerular Filtration Rate) 1978 Diabetes: Annual Foot Exam 1988 Diabetes: Annual Retina Eye Exam 1988 Hepatitis B Vaccines (1 of 3 - 19+ 3-dose series) 1997 06/28/2001, 03/29/2001, 02/03/2001 Pneumococcal Vaccine: Pediatrics (0 to 5 Years) and At-Risk Patients (6 to 64 Years) (1 of 2 - PCV) 1997 COVID-19 Vaccine (1 - season) 2023 Cholesterol Screening (Lipid Panel) 12/20/2023 Colorectal Cancer Screening: Colonoscopy 12/20/2023 Depression Screening 12/20/2023 HIV Screening 12/20/2023 Hepatitis C Screening 12/20/2023 Social Influencers of Health Screening 12/20/2023 Diabetes: Annual Urine Albumin-Creatinine Ratio (uACR) 03/23/2024 Diabetes: Blood Sugar Control Test (HGBA1C) 03/23/2024 Hypertension/CHF/CAD Annual BMP Blood Test 03/23/2024 Influenza Vaccine (Season Ended) 2024 11/30/2018, 01/19/2018, 12/10/2016, Additional history exists DTaP,Tdap,and Td Vaccines (8 - Td or [...] age to complete this topic Meningococcal B Vaccine Aged Out No l onger eligible based on patient's age to complete this topic RSV Immunization Patients Under 20 months Aged Out No longer eligible based on patient's age to complete this topic Varicella Vaccines Aged Out No longer eligible based on patient's age to complete this topic Insurance [facility] PLAN Care Teams Professor Of Physical Education Relationship Specialty Start Date End Date Carlos Alberto Patel MD [address] [place] [address] [address] [place] PCP - General 12/09/23
[2024-06-02 18:07] LABS: TSH reflex Free T4 1.15 uIU/mL (0.32-4.0); Vitamin D 25-OH Total 10.9 ng/mL (>30)
[2024-06-02 18:22] LABS: Creatinine Urine 228.22 mg/dL; Microalbum/Creatinine Ratio Ur 14.8 ug/mg cr (<30)
== END 2024-06-02 16:01 | disposition home or self-care (01) ==
LOC: HO.LAB 16:00
PROVIDERS: PCP Internal Medicine; Visit Provider Internal Medicine
DX: D64.9 Anemia, unspecified (principal); R30.0 Dysuria; E78.00 Pure hypercholesterolemia, unspecified; E11.9 Type 2 diabetes mellitus without complications; E55.9 Vitamin D deficiency, unspecified
CPT/HCPCS: 36415; 80053; 80061; 81003; 82043; 82306; 82570; 83036; 84443; 85025

== ENCOUNTER 2024-06-03 14:26 | Outpatient (AMB) | payer OTHER, SELFPAY ==
--- NOTE | 2024-06-03 14:36 | MHC.PC.OV ---
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 Accompanied by: Self / Same As Patient Allergies acetaminophen [From TYLENOL] Allergy (Unknown, Verified 06/03/24 15:16) UPSET STOMACH naproxen Adverse Reaction (Unknown, Verified 06/03/24 15:16) stomach upset Medication List - Last Reconciled 06/03/24 by Carlos Alberto Patel MD blood pressure kit-extra large As directed blood pressure monitor As directed blood sugar diagnostic (FreeStyle Lite Strips) USE TO TEST ONCE DAILY DIRECTED blood-glucose meter (FreeStyle Lite Meter kit) As directed cholecalciferol (vitamin D3) 100 mcg (2 x 50 mcg (2,000 unit)) PO DAILY 90 days escitalopram oxalate 20 mg PO DAILY gabapentin 100 mg PO BEDTIME 90 days lancets (FreeStyle Lancets) As directed lisinopril 20 mg PO DAILY 90 days metformin ER 500 mg PO BID 90 days oxycodone 15 mg PO Q8H PRN 14 days sitagliptin phosphate (Januvia) 25 mg PO DAILY sucralfate (Carafate) 10 mL PO BID Tobacco use date assessed: 06/03/24 Dental Screening Dental Screen Date: 06/03/24 Did you have a dental visit in the last 12 months?: Yes Did you have a dental problem in the last 6 months where you did not have access to dental care?: No Was dental information given to patient?: Patient has dentist HPI 3M Follow Up HPI Details Patient comes in today for his follow up visit States that he is still experiencing on and off abdominal pain and discomfort He has been advised to undergo cholecystectomy but surgery is waiting to see if his diabetes is under control for them to be able to proceed with surgery Patient admits to poor compliance with his diet recently He also just realized now that he is supposed to taking his Metformin ER twice a day - states that he has only been taking it once a day in the morning together with his Januvia 25 mg States that he really does not eat much throughout the day and sometimes skip his meal altogether so he can not understand why his sugar is still not better controlled He continues to experience increased pain over his lower back and over multiple joints - states that his current medications help keep his pain manageable He denies any headaches or dizziness Denies any chest pains, no increased shortness of breath No nausea/vomiting; states that his stomach feels bloated often with on and off epigastric and right upper quadrant pain as mentioned above due to his gallstones No change in bowel habits noted He had his follow-up labs done yesterday - to discuss his results [facility] Medical History Peripheral neuropathy Pain in both feet Lymphedema Impaired fasting glucose Edema of both feet Morbid obesity with BMI of 50.0-59.9, adult Medical marijuana use Smoker Depression Insomnia Vitamin D deficiency Drug-induced constipation Osteoarthritis Hyperglycemia Benign essential hypertension Mixed hyperlipidemia Lumbar disc herniation with myelopathy Lumbar degenerative disc disease Anxiety Surgical History History of appendectomy Family History Father Alive and well Mother COPD (chronic obstructive pulmonary disease) Brother Alive and well Social History Housing: Apartment Alcohol intake: current Alcohol intake frequency: holidays/special occasions only Patient Tobacco Use Status: Current everyday Tobacco user Cigarettes Per Day: 2 e-Cigarette/Vaping Use: Former Use Second Hand Smoke Exposure: Yes service: No Current occupational status: disabled Cognitive needs: No Hearing needs: No Vision needs: Yes Questionnaire PHQ-9 Over the last 2 weeks, how often have you been bothered by any of the following problems? 1. Little interest or pleasure in doing things: not at all 2. Feeling down, depressed, or hopeless: not at all 3. Trouble falling or staying asleep, or sleeping too much: not at all 4. Feeling tired or having little energy: not at all 5. Poor appetite or overeating: not at all 6. Feeling bad about yourself - or that you are a failure or have let yourself or your family down: not at all 7. Trouble concentrating on things, such as reading the newspaper or watching television: not at all 8. Moving or speaking so slowly that other people could have noticed. Or the opposite - being so fidgety or restless that you have been moving around a lot more than usual: not at all 9. Thoughts that you would be better off or of hurting yourself in some way: not at all Total score: 0 Depression Screening Interpretation: Positive Depression Screening Follow-up: Existing condition and In treatment Depression Screening Done: Yes 88275 - PHQ-9 Billing: Yes Source: Developed by Drs. Jay Valladares, Nathalia Smith, Jens Elder and colleagues, with an educational ced from [employer]. Thrive Questionnaire Date Thrive assessed: 06/03/24 I am a: Patient What is your living situation today?: I have a steady place to live Within the past 12 months, did the food you bought not last and you didn't have the money to get more?: Never true Within the past 12 months, did you worry whether your food would run out before you got money to buy more?: Never true Do you have trouble paying for medicines?: No Do you have trouble getting transportation to medical appointments?: No Do you have trouble paying your heating and electricity bill?: No Do you have trouble taking care of your child, family member or friend?: No Do you have trouble with day-to-day activities such as bathing, preparing meals, shopping, managing finances, etc.?: No Are you currently unemployed and looking for a job?: I choose not to answer this question Are you interested in more education?: No Please select the resources that you would like help with: None Currently or been in a relationship where the following occur: No concerns reported THRIVE Score: 0 AUDIT C Alcohol Use Questionnaire (AUDIT-C) 1. How often do you have a drink containing alcohol?: Monthly or less 2. How many drinks containing alcohol do you have on a typical day when you are drinking?: 1 or 2 3. How often do you have six or more drinks on one occasion?: Never Total Score: 1 Score Reviewed/Action Taken: Yes KELLY-7 AMB Questionnaire KELLY-7 Date KELLY - 7 assessed: 06/03/24 Feeling nervous, anxious, or on edge: 0 = Not at all Not being able to stop or control worryin = Not at all Worrying too much about different things: 0 = Not at all Trouble relaxin = Not at all Being so restless that it is hard to sit still: 0 = Not at all Becoming easily annoyed or irritable: 0 = Not at all Feeling afraid as if something awful might happen: 0 = Not at all Total KELLY-7 score (0-4 normal; 5-9 mild; 10-14 moderate; 15-21 severe): 0 Source: Developed by Drs. Jay Valladares, Nathalia Smith, Jens Elder and colleagues, with an educational ced from [employer]. KELLY-7 Assessment Billing KELLY-7 Assessment Tool: KELLY-7 Assessment 37556 Review of Systems Const Denies chills, Reports fatigue, Denies fever(s) and Denies headache(s) ENT Denies dysphagia, Denies dizziness, Denies otalgia, Denies headache(s), Reports neck pain, Denies odynophagia and Denies sore throat Card Denies chest pain, Denies palpitations and Reports dyspnea on exertion (mild) Resp Denies chest congestion, Denies cough and Reports dyspnea on exertion (mild) GI Reports abdominal pain (on and off, over the epigastric and RUQ area), Reports bloating (at times), Denies constipation, Denies dysphagia, Denies heartburn, Denies diarrhea, Denies nausea, Denies odynophagia and Denies vomiting Denies difficulty urinating, Denies dysuria, Denies nocturia and Denies urinary frequency Musc Reports back pain (over the lumbar spine - chronic), Reports arthralgias (especially of the knees; increasing pain in left hip recently), Reports neck pain and Reports tingling (in both feet) Skin/Breast Denies rash Neuro Denies dizziness, Denies headache(s), Reports tingling (in both feet) and Reports paresthesias (in both feet) Endo Reports fatigue and Denies palpitations Thierry/Lymph Details: (+) recurrent swelling of both feet and ankles Physical exam (Primary Care) Vital Signs: Last Vital Signs Temp 96.9 F 06/03/24 14:37 Pulse 96 06/03/24 14:37 BP 142/84 H 06/03/24 14:37 Pulse Ox 100 06/03/24 14:37 Oxygen Delivery Method Room Air 06/03/24 14:37 BMI result Body Mass Index 48.5 Tobacco/Smoking Status: Tobacco use Status Tobacco use date assessed 06/03/24 06/03/24 14:44 Patient Tobacco Use Status Current everyday Tobacco 06/03/24 14:44 e-Cigarette/Vaping Use Former Use 06/03/24 14:44 PHQ-9: PHQ-9 Score PHQ-9: Total score 0 06/03/24 15:19 Depression Screening Interpretation: Positive Depression Screening Follow-up: Existing condition and In treatment Thrive Assessment: Date of Thrive Assessment Date Thrive assessed 06/03/24 06/03/24 14:44 Currently or been in a relationship where the following occur: No concerns reported Const General: no acute distress and alert HENMT Throat: Yes posterior oropharynx normal and Yes tonsils normal (no TP congestion noted) Neck Neck: Yes no lymphadenopathy and Yes supple Thyroid: Thyroid normal Resp Auscultation: clear to auscultation bilaterally, no rales and no wheezes Cardio Rate: regular rate Rhythm: regular rhythm Heart sounds: no murmurs GI Palpation (GI): Soft to palpation, Tenderness to palpation present (GI) (minimal) in the RUQ, no guarding, not rigid and No Rebound tenderness present Auscultation: normal bowel sounds General: Yes no CVA tenderness Back/Spine/Pelvis Back: no CVA tenderness Cervical Spine: Cervical spine tenderness Thoracic/Lumbar Spine: lumbar spinal tenderness Skin Rashes: no rashes Extrem General: No clubbing, No cyanosis and Yes edema (2+ bilateral lower extremity edema) Left lower extremity: hip/thigh Details: tenderness Location: of the hip Results Reviewed Results Reviewed: Laboratory Tests 06/02/24 06/02/24 16:04 16:15 WBC 9.4 Hgb 16.5 D Hct 51.0 Plt Count 197 Sodium 139 Potassium 4.3 Creatinine 0.81 Estimated GFR > 60 Fasting Glucose 187 H Hemoglobin A1c % 10.0 H Calcium 9.8 AST 31 ALT 40 Triglycerides 188 H Cholesterol 157 LDL Cholesterol, Calc 88 HDL Cholesterol 32 L 25-OH Vitamin D Total 10.9 L TSH 1.15 Ur Specific [place] 1.025 Urine Protein Trace Urine Glucose (UA) 250 H Urine Blood Negative Urine Nitrite Negative Ur Leukocyte Esterase Negative Microalb/Creat Ratio 14.8 Coding Level of Care Code Est Pt Level 4 (97915) Complex EM visit Add On G2211 Diagnoses Mixed hyperlipidemia E78.2 Type 2 diabetes mellitus with hyperglycemia, without long-term current use of insulin E11.65 Diabetes mellitus complication status: with hyperglycemia Diabetes mellitus mcc insulin use: without mcc use Diabetes mellitus type: type 2 Benign essential hypertension I10 Symptomatic cholelithiasis K80.20 Degeneration of intervertebral disc of lumbar region with discogenic back pain and lower extremity pain M51.362 Disc-related pain type: discogenic back pain and lower extremity pain Primary osteoarthritis, unspecified site M19.91 Osteoarthritis location: unspecified site Osteoarthritis type: primary Drug-induced constipation K59.03 Vitamin D deficiency E55.9 Lymphedema I89.0 Insomnia, unspecified type G47.00 Insomnia type: unspecified Anxiety F41.9 Episode of recurrent major depressive disorder, unspecified depression episode severity F33.9 Active/Remission status: currently active Depression Type: major depressive disorder Major depression episode severity: unspecified Major depression recurrence: recurrent Morbid obesity with BMI of 50.0-59.9, adult E66.01; Z68.43 Additional Codes KELLY-7 Assessment Billing - KELLY-7 Assessment Tool: KELLY-7 Assessment 75083 ([id number]) PHQ-9 - 45108 - PHQ-9 Billing: Yes ([id number]) Assessment & Plan Assessment & Plan (1) Mixed hyperlipidemia: Code(s): E78.2 - Mixed hyperlipidemia Category: Medical Plan: Results of his labs done yesterday reviewed and discussed with patient - he is advised that his cholesterol levels are at or close to goal (LDL cholesterol is at 88 mg/dl and total cholesterol at 157 mg/dl) Reinforced low cholesterol diet Will recheck his labs and fasting lipids in 3 months for follow-up (2) Diabetes mellitus: Code(s): E11.9 - Type 2 diabetes mellitus without complications Category: Medical Qualifiers: Diabetes mellitus complication status: with hyperglycemia Diabetes mellitus manager rfid insulin use: without manager rfid use Diabetes mellitus type: type 2 Qualified Code(s): E11.65 - Type 2 diabetes mellitus with hyperglycemia Plan: His HgbA1c was at 10.0% on his labs done yesterday (he was previously at 9.3% a few months ago) - goal is <7.0% Reinforced diabetic diet/exercise as tolerated He is supposed to be taking his Metformin ER 500 mg BID but he just now realized he has only been taking it once a day in the morning He also has Sitagliptin 25 mg QD in his med list today but unclear as to who started him on this and when - patient himself is not sure if he is actually taking this or not at this time and is unable to tell us who started him on this and when he started actually taking it Have advised patient to check his medications when he gets home and call us back early Thursday morning with the correct information In the meantime, he is instructed to go up on his Metformin ER 500 mg to his original BID dosing He is also reminded that as he has been previously advised, he should try to eat his 3 meals a day regularly regardless of whether he has an appetite or not and that skipping his meals will actually make his blood sugar go up and make it more difficult to get his diabetes under control Have advised him that if he can not get his diabetes back under control by his next appointment, we will need to refer him back to endocrinology for further management Have advised patient as well that at this time, since his diabetes is uncontrolled,, we will unfortunately have to put off his gallbladder surgery until he can get his diabetes back to some reasonable control (3) Benign essential hypertension: Code(s): I10 - Essential (primary) hypertension Category: Medical Plan: Reinforced low-sodium diet - goal is systolic BP of 120 mm or less Continue Lisinopril 20 mg QD (4) Symptomatic cholelithiasis: Code(s): K80.20 - Calculus of gallbladder without cholecystitis without obstruction Category: Medical Plan: Patient has been recommended by surgery to undergo laparoscopic cholecystectomy but they are not able to proceed with surgery until his diabetes is under better control, with his HgbA1c preferably at 8.2% or less Patient's recent HgbA1c is unfortunately at 10.0%, which is slightly higher than previous, and is due to a combination of poor compliance with his diet as well as inadequate compliance with his medications, so his gallbladder surgery will have to be postponed at this time This will be defined today and patient has been advised again that he needs to do a much better job with his diet and to be more responsible with his medical management (5) Lumbar degenerative disc disease: Code(s): M51.36 - Other intervertebral disc degeneration, lumbar region Category: Medical Qualifiers: Disc-related pain type: discogenic back pain and lower extremity pain Qualified Code(s): M51.362 - Other intervertebral disc degeneration, lumbar region with discogenic back pain and lower extremity pain Plan: Reinforced activity and weight-lifting restrictions MRI of the lumbar spine last done in January 2018 revealed (+) posterior disc protrusion/extrusion at L5-S1 impinging on both the right and left exiting L5 nerve roots (more on the right side); central and right paracentral disc protrusion extending behind the body of the L5 to the right of midline Repeat lumbar spine x-rays done in May 2023 revealed (+) multilevel degenerative changes in the lumbar spine Continue Oxycodone 15 mg every 8 hours PRN Patient continues to decline taking Gabapentin, which may help alleviate some of his chronic pain - states that he is on medical marijuana and this is helping him somewhat He used to go to [facility] and reportedly received a total of 8 injections into his lower back from Dr. Waller but has not gone back to see them in a few years - states that he did not want to continue getting injections into his lower back as they were not helping at all when he was getting them Have also reminded patient that per his pain management agreement that he originally signed, he has to make sure he keeps his scheduled follow-up appointments every 3 months and that we will also be implementing again random drug screens more routinely (6) Osteoarthritis: Code(s): M19.90 - Unspecified osteoarthritis, unspecified site Category: Medical Qualifiers: Osteoarthritis location: unspecified site Osteoarthritis type: primary Qualified Code(s): M19.91 - Primary osteoarthritis, unspecified site Plan: States that his current meds help with his symptoms Will consider referral to Orthopedics if his symptoms get worse Left hip x-rays done back in 2016 came out normal; repeat left hip x-rays done in May 2023 came out normal as well Advised that his hip pains may actually be referred pain from his lower back, especially with his normal hip x-rays from last year (7) Drug-induced constipation: Code(s): K59.03 - Drug induced constipation Category: Medical Plan: He is again encouraged on increased oral fluids and dietary fiber intake Continue OTC stool softeners PRN as he states that they have been helping him adequately so far (8) Vitamin D deficiency: Code(s): E55.9 - Vitamin D deficiency, unspecified Category: Medical Plan: Continue Vitamin D3 4000 units QD (9) Lymphedema: Code(s): I89.0 - Lymphedema, not elsewhere classified Category: Medical Plan: He is reminded to continue with leg elevation as often as he can to help minimize his edema; advised again that compression stockings/socks can also help Reminded as well that his lymphedema is most likely related to his weight and his sedentary lifestyle, as his recent labs continue to show normal renal function (10) Insomnia: Code(s): G47.00 - Insomnia, unspecified Category: Medical Qualifiers: Insomnia type: unspecified Qualified Code(s): G47.00 - Insomnia, unspecified Plan: Sleep hygiene reinforced (11) Anxiety: Code(s): F41.9 - Anxiety disorder, unspecified Category: Medical Plan: Continue Alprazolam 1 mg TID PRN - Rx is being prescribed and managed by psychiatry (12) Depression: Code(s): F32.9 - Major depressive disorder, single episode, unspecified Category: Medical Qualifiers: Active/Remission status: currently active Depression Type: major depressive disorder Major depression episode severity: unspecified Major depression recurrence: recurrent Qualified Code(s): F33.9 - Major depressive disorder, recurrent, unspecified Plan: Continue Escitalopram 20 mg QD Follow up with psychiatry as scheduled (13) Morbid obesity with BMI of 50.0-59.9, adult: Code(s): E66.01 - Morbid (severe) obesity due to excess calories; Z68.43 - Body mass index [BMI] 50.0-59.9, adult Category: Medical Plan: Reinforced diet; exercise and weight loss are likely unrealistic in this patient due to his multiple comorbidities and physical condition He also has not shown any consistent motivation at all to lose weight in the past Plan Follow up in 3 months Orders: Orders Complete Blood Count Auto Diff 08/23/24 D64.9 - Anemia, unspecified Lipid Panel 08/23/24 E78.00 - Pure hypercholesterolemia, unspecified TSH reflex Free T4 08/23/24 E78.00 - Pure hypercholesterolemia, unspecified UA CC w/rflx Micro + Cult 08/23/24 R30.0 - Dysuria Vitamin D 25-OH Total 08/23/24 E55.9 - Vitamin D deficiency, unspecified Hemoglobin A1c 08/23/24 E11.9 - Type 2 diabetes mellitus without complications Comprehensive [facility]. Panel Fast 08/23/24 E78.00 - Pure hypercholesterolemia, unspecified Microalbumin, Random (w Creat) 08/23/24 E11.9 - Type 2 diabetes mellitus without complications
[2024-06-03 14:37] VITALS: BP 142/84; PULSE 96; TEMP 36.1; O2SAT 100; BMI 48.5
--- OUTSIDE RECORDS SUMMARY | 2024-06-03 14:44 | XMS_ITS | Clinical Summary ---
Author Organization [employer] Address [address] [place] [address] Care Team Providers Care Enterprise Application Developer Name Role Phone Unavailable Primary Care Provider [...] Most Recently Relevant to Health Maintenance Insurance [facility] MEDICAID STAND ADULT
--- OUTSIDE RECORDS SUMMARY | 2024-06-03 14:44 | XMS_ITS | Clinical Summary ---
Author Organization [address] [facility] g Address [address] [place] [address] Phone Care Team Providers Care Chemical Dependency Professional Name Role Phone Carlos Alberto Patel MD Primary Care Provider Allergies No known active allergies Medications ammonium lactate (AmLactin) 12 % lotion Apply topically if needed for dry skin. 400 g 2 5 03/23/19 26 Active Encounters Date Type Department Care Team Description 03/23/2024 1:00 PM EST Office Visit Orthopedic Surgery [facility] [address] [phone] Rajan Peralta DPM Controlled type 2 diabetes [...] Upcoming Encounters Date Type Department Care Team ([facility] st Contact Info) Description 08/08/2024 1:00 PM EDT Office Visit Orthopedic Surgery [facility] [address] [phone] Rajan Peralta DPM [address] [address] Health Maintenance Due Date Last Done Comments [...] patient's age to complete this topic Insurance [facility] Care Teams Chemical Dependency Professional Relationship Specialty Start Date End Date Carlos Alberto Patel MD [address] [place] [address] [address] [place] PCP - General 12/09/23
== END 2024-06-03 16:33 | disposition home or self-care (01) ==
LOC: HO.HMCH 14:27
PROVIDERS: PCP Internal Medicine; Visit Provider Internal Medicine
DX: E11.65 Type 2 diabetes mellitus with hyperglycemia (principal); F33.9 Major depressive disorder, recurrent, unspecified; E66.01 Morbid (severe) obesity due to excess calories; Z68.43 Body mass index [BMI] 50.0-59.9, adult; E78.2 Mixed hyperlipidemia; I10 Essential (primary) hypertension; M51.362 Other intervertebral disc degeneration, lumbar region with discogenic back pain and lower extremity pain; M19.91 Primary osteoarthritis, unspecified site; K80.20 Calculus of gallbladder without cholecystitis without obstruction; K59.03 Drug induced constipation; E55.9 Vitamin D deficiency, unspecified; I89.0 Lymphedema, not elsewhere classified

== ENCOUNTER → 2024-06-03 14:26 | Outpatient (BNVA) | payer OTHER, SELFPAY | PROVIDERS: PCP Internal Medicine; Visit Provider Internal Medicine | DX: E78.2 Mixed hyperlipidemia (principal); E11.65 Type 2 diabetes mellitus with hyperglycemia; I10 Essential (primary) hypertension; K80.20 Calculus of gallbladder without cholecystitis without obstruction; M51.362 Other intervertebral disc degeneration, lumbar region with discogenic back pain and lower extremity pain; M19.91 Primary osteoarthritis, unspecified site; K59.03 Drug induced constipation; E55.9 Vitamin D deficiency, unspecified; I89.0 Lymphedema, not elsewhere classified; G47.00 Insomnia, unspecified; F41.9 Anxiety disorder, unspecified; F33.9 Major depressive disorder, recurrent, unspecified; E66.01 Morbid (severe) obesity due to excess calories; Z68.43 Body mass index [BMI] 50.0-59.9, adult; Z71.3 Dietary counseling and surveillance | CPT/HCPCS: 96127; 99212 ==

== ENCOUNTER 2024-12-02 14:17 | Outpatient (AMB) | payer OTHER, SELFPAY ==
[2024-12-02 14:26] VITALS: BP 142/96; PULSE 91; O2SAT 96; BMI 47.1
--- NOTE | 2024-12-02 14:26 | A.OFFPC_ITS ---
Vital Signs 12/02/24 14:26 Height 5 ft 4 in Weight 274 lb 6 oz BMI 47.1 BP 142/96 H Blood Pressure Location Lt brachial Position Sitting Pulse 91 Pulse Source Pulse Oximeter Pulse Oximetry (%) 96 Oxygen Delivery Method Room Air Intake Visit Reasons: 3M Follow Up- repeat A1C Ticket Collector Required: No Accompanied by: Self / Same As Patient Allergies acetaminophen (From TYLENOL) Allergy (Unknown, Verified 12/02/24 14:57) UPSET STOMACH naproxen Adverse Reaction (Unknown, Verified 12/02/24 14:57) stomach upset Medication List - Last Reconciled 12/02/24 by Carlos Alberto Patel MD blood pressure kit-extra large As directed blood pressure monitor As directed blood sugar diagnostic (FreeStyle Lite Strips) USE TO TEST ONCE DAILY DIRECTED blood-glucose meter (FreeStyle Lite Meter kit) As directed cholecalciferol (vitamin D3) 100 mcg (2 x 50 mcg (2,000 unit)) PO DAILY 90 days escitalopram oxalate 20 mg PO DAILY gabapentin 100 mg PO BEDTIME 90 days lancets (FreeStyle Lancets) As directed lisinopril 20 mg PO DAILY 90 days metformin ER 500 mg PO BID 90 days oxycodone 15 mg PO Q8H PRN 14 days sitagliptin phosphate (Januvia) 25 mg PO DAILY sucralfate (Carafate) 10 mL PO BID Tobacco use date assessed: 12/02/24 Dental Screening Dental Screen Date: 12/02/24 Did you have a dental visit in the last 12 months?: Yes Did you have a dental problem in the last 6 months where you did not have access to dental care?: No Was dental information given to patient?: Patient has dentist HPI 3M Follow Up- repeat A1C HPI Details Patient comes in today for his follow up visit He continues to experience increased pain over his lower back and over multiple joints - states that his current medications help keep his pain manageable and that he just needs his pain med Rx refilled today He denies any headaches or dizziness Denies any chest pains, no increased shortness of breath No nausea/vomiting; states that his stomach feels bloated often with on and off epigastric and right upper quadrant pain due to his gallstones No change in bowel habits noted He was not able to get his follow up labs done prior to coming in for his appointment today [facility] Medical History Peripheral neuropathy Pain in both feet Lymphedema Impaired fasting glucose Edema of both feet Morbid obesity with BMI of 50.0-59.9, adult Medical marijuana use Smoker Depression Insomnia Vitamin D deficiency Drug-induced constipation Osteoarthritis Hyperglycemia Benign essential hypertension Mixed hyperlipidemia Lumbar disc herniation with myelopathy Lumbar degenerative disc disease Anxiety Surgical History History of appendectomy Family History Father Alive and well Mother COPD (chronic obstructive pulmonary disease) Brother Alive and well Social History Housing: Apartment Alcohol intake: current Alcohol intake frequency: holidays/special occasions only Patient Tobacco Use Status: Current everyday Tobacco user Cigarettes Per Day: 2 e-Cigarette/Vaping Use: Former Use Second Hand Smoke Exposure: Yes service: No Current occupational status: disabled Cognitive needs: No Hearing needs: No Vision needs: Yes Questionnaire PHQ-9 Over the last 2 weeks, how often have you been bothered by any of the following problems? 1. Little interest or pleasure in doing things: several days 2. Feeling down, depressed, or hopeless: several days 3. Trouble falling or staying asleep, or sleeping too much: several days 4. Feeling tired or having little energy: several days 5. Poor appetite or overeating: several days 6. Feeling bad about yourself - or that you are a failure or have let yourself or your family down: several days 7. Trouble concentrating on things, such as reading the newspaper or watching television: several days 8. Moving or speaking so slowly that other people could have noticed. Or the opposite - being so fidgety or restless that you have been moving around a lot more than usual: several days 9. Thoughts that you would be better off or of hurting yourself in some way: several days Total score: 9 Depression Screening Interpretation: Positive Depression Screening Follow-up: Existing condition and In treatment Depression Screening Done: Yes 16665 - PHQ-9 Billing: Yes Source: Developed by Drs. Jay L. Nathalia Valladares, Jens Elder and colleagues, with an educational ced from [employer] Thrive Questionnaire Date Thrive assessed: 06/03/24 I am a: Patient What is your living situation today?: I choose not to answer this question Within the past 12 months, did the food you bought not last and you didn't have the money to get more?: I choose not to answer this question Within the past 12 months, did you worry whether your food would run out before you got money to buy more?: I choose not to answer this question Do you have trouble paying for medicines?: I choose not to answer this question Do you have trouble getting transportation to medical appointments?: I choose not to answer this question Do you have trouble paying your heating and electricity bill?: I choose not to answer this question Do you have trouble taking care of your child, family member or friend?: I choose not to answer this question Do you have trouble with day-to-day activities such as bathing, preparing meals, shopping, managing finances, etc.?: I choose not to answer this question Are you currently unemployed and looking for a job?: I choose not to answer this question Are you interested in more education?: I choose not to answer this question Please select the resources that you would like help with: None Currently or been in a relationship where the following occur: I choose not to answer THRIVE Score: 0 AUDIT C Alcohol Use Questionnaire (AUDIT-C) 1. How often do you have a drink containing alcohol?: Never 3. How often do you have six or more drinks on one occasion?: Never Total Score: 0 KELLY-7 AMB Questionnaire KELLY-7 Date KELLY - 7 assessed: 06/03/24 Feeling nervous, anxious, or on edge: 1 = Several days Not being able to stop or control worryin = Several days Worrying too much about different things: 1 = Several days Trouble relaxin = Several days Being so restless that it is hard to sit still: 1 = Several days Becoming easily annoyed or irritable: 2 = More than half the days Feeling afraid as if something awful might happen: 1 = Several days Total KELLY-7 score (0-4 normal; 5-9 mild; 10-14 moderate; 15-21 severe): 8 Source: Developed by Drs. Jay Valladares, Nathalia Smith, Jens Elder and colleagues, with an educational ced from [employer]. Review of Systems Const Denies chills, Reports fatigue, Denies fever(s) and Denies headache(s) ENT Denies dysphagia, Denies dizziness, Denies otalgia, Denies headache(s), Reports neck pain, Denies odynophagia and Denies sore throat Card Denies chest pain, Denies palpitations and Reports dyspnea on exertion (mild) Resp Denies chest congestion, Denies cough and Reports dyspnea on exertion (mild) GI Reports abdominal pain (on and off, over the epigastric and RUQ area), Reports bloating (at times), Denies constipation, Denies dysphagia, Denies heartburn, Denies diarrhea, Denies nausea, Denies odynophagia and Denies vomiting Denies difficulty urinating, Denies dysuria, Denies nocturia and Denies urinary frequency Musc Reports back pain (over the lumbar spine - chronic), Reports arthralgias (especially of the knees; increasing pain in left hip recently), Reports neck pain and Reports tingling (in both feet) Skin/Breast Denies rash Neuro Denies dizziness, Denies headache(s), Reports tingling (in both feet) and Reports paresthesias (in both feet) Endo Reports fatigue and Denies palpitations Thierry/Lymph Details: (+) recurrent swelling of both feet and ankles Physical exam (Primary Care) Vital Signs: Last Vital Signs Pulse 91 12/02/24 14:26 BP 142/96 H 12/02/24 14:26 Pulse Ox 96 12/02/24 14:26 Oxygen Delivery Method Room Air 12/02/24 14:26 BMI result Body Mass Index 47.1 Tobacco/Smoking Status: Tobacco use Status Tobacco use date assessed 12/02/24 12/02/24 14:33 Patient Tobacco Use Status Current everyday Tobacco 12/02/24 14:33 e-Cigarette/Vaping Use Former Use 12/02/24 14:33 PHQ-9: PHQ-9 Score PHQ-9: Total score 9 12/02/24 15:02 Depression Screening Interpretation: Positive Depression Screening Follow-up: Existing condition and In treatment Thrive Assessment: Date of Thrive Assessment Date Thrive assessed 06/03/24 12/02/24 14:33 Currently or been in a relationship where the following occur: I choose not to answer Const General: no acute distress and alert HENMT Throat: Yes posterior oropharynx normal and Yes tonsils normal (no TP congestion noted) Neck Neck: Yes no lymphadenopathy and Yes supple Thyroid: Thyroid normal Resp Auscultation: clear to auscultation bilaterally, no rales and no wheezes Cardio Rate: regular rate Rhythm: regular rhythm Heart sounds: no murmurs GI Palpation (GI): Soft to palpation, Tenderness to palpation present (GI) (minimal) in the RUQ, no guarding, not rigid and No Rebound tenderness present Auscultation: normal bowel sounds General: Yes no CVA tenderness Back/Spine/Pelvis Back: no CVA tenderness Cervical Spine: Cervical spine tenderness Thoracic/Lumbar Spine: lumbar spinal tenderness Skin Rashes: no rashes Extrem General: No clubbing, No cyanosis and Yes edema (2+ bilateral lower extremity edema) Left lower extremity: hip/thigh Details: tenderness Location: of the hip Coding Level of Care Code Est Pt Level 4 (08166) Diagnoses Mixed hyperlipidemia E78.2 Type 2 diabetes mellitus with hyperglycemia, without long-term current use of insulin E11.65 Diabetes mellitus complication status: with hyperglycemia Diabetes mellitus marine oil terminal superintendent insulin use: without marine oil terminal superintendent use Diabetes mellitus type: type 2 Benign essential hypertension I10 Symptomatic cholelithiasis K80.20 Degeneration of intervertebral disc of lumbar region with discogenic back pain and lower extremity pain M51.362 Disc-related pain type: discogenic back pain and lower extremity pain Primary osteoarthritis, unspecified site M19.91 Osteoarthritis location: unspecified site Osteoarthritis type: primary Drug-induced constipation K59.03 Vitamin D deficiency E55.9 Lymphedema I89.0 Insomnia, unspecified type G47.00 Insomnia type: unspecified Anxiety F41.9 Episode of recurrent major depressive disorder, unspecified depression episode severity F33.9 Active/Remission status: currently active Depression Type: major depressive disorder Major depression episode severity: unspecified Major depression recurrence: recurrent Morbid obesity with BMI of 45.0-49.9, adult E66.01; Z68.42 Additional Codes PHQ-9 - 64570 - PHQ-9 Billing: Yes ([id number]) Assessment & Plan Assessment & Plan (1) Mixed hyperlipidemia: Code(s): E78.2 - Mixed hyperlipidemia Category: Medical Plan: He was again not able to get his follow up labs done prior to coming in for his appointment today His cholesterol levels are at or close to goal (LDL cholesterol is at 88 mg/dl and total cholesterol at 157 mg/dl) when they were last checked in May 2024 Reinforced low cholesterol diet Will recheck his labs and fasting lipids in 3 months for follow-up - will just have paient use his current orders (updated) for his next lab draw (2) Diabetes mellitus: Code(s): E11.9 - Type 2 diabetes mellitus without complications Category: Medical Qualifiers: Diabetes mellitus complication status: with hyperglycemia Diabetes mellitus marine oil terminal superintendent insulin use: without detention use Diabetes mellitus type: type 2 Qualified Code(s): E11.65 - Type 2 diabetes mellitus with hyperglycemia Plan: His in-office HgbA1c today is at 9.8% (HgbA1c was at 10.0% on his labs done back in May 2024) - goal is at least <7.0% Have again reminded patient that we cannot clear him for his gallbladder surgery until he can get his diabetes under control Reinforced diabetic diet/exercise as tolerated Continue Metformin ER 500 mg BID; will increase his Sitagliptin from 25 mg to 100 mg QD It appears that compliance both with his medications and with his diet are still the main issues/barriers here that is keeping his diabetes from getting under control despite our best efforts to educate and lecture him about these in the past Will also refer patient to endocrinology for further evaluation and management (3) Benign essential hypertension: Code(s): I10 - Essential (primary) hypertension Category: Medical Plan: Reinforced low-sodium diet - goal is systolic BP of 120 mm or less Will increase his Lisinopril from 20 mg to 30 mg QD (4) Symptomatic cholelithiasis: Code(s): K80.20 - Calculus of gallbladder without cholecystitis without obstruction Category: Medical Plan: Patient has been recommended by surgery to undergo laparoscopic cholecystectomy but they are not able to proceed with surgery until his diabetes is under better control, with his HgbA1c preferably at 8.2% or less Patient's in-office HgbA1c today is still at 9.8%, which is only minimally improved from his HgbA1c of 10.0% back in May 2024, so his gallbladder surgery will still have to be out on hold at this time (5) Lumbar degenerative disc disease: Code(s): M51.36 - Other intervertebral disc degeneration, lumbar region Category: Medical Qualifiers: Disc-related pain type: discogenic back pain and lower extremity pain Qualified Code(s): M51.362 - Other intervertebral disc degeneration, lumbar region with discogenic back pain and lower extremity pain Plan: Reinforced activity and weight-lifting restrictions MRI of the lumbar spine last done in January 2018 revealed (+) posterior disc protrusion/extrusion at L5-S1 impinging on both the right and left exiting L5 nerve roots (more on the right side); central and right paracentral disc protrusion extending behind the body of the L5 to the right of midline Repeat lumbar spine x-rays done in May 2023 revealed (+) multilevel degenerative changes in the lumbar spine Continue Oxycodone 15 mg every 8 hours PRN Patient continues to decline taking Gabapentin, which may help alleviate some of his chronic pain - states that he is on medical marijuana and this is helping him somewhat He used to go to [facility] and reportedly received a total of 8 injections into his lower back from Dr. Waller but he has not gone back to see them in a few years now - states that he did not want to continue getting injections into his lower back as they were not helping at all when he was getting them Have also reminded patient that per his pain management agreement that he originally signed, he has to make sure he keeps his scheduled follow-up appointments every 3 months and that we will also be implementing again random drug screens more routinely (6) Osteoarthritis: Code(s): M19.90 - Unspecified osteoarthritis, unspecified site Category: Medical Qualifiers: Osteoarthritis location: unspecified site Osteoarthritis type: primary Qualified Code(s): M19.91 - Primary osteoarthritis, unspecified site Plan: States that his current meds help with his symptoms Will consider referral to Orthopedics if his symptoms get worse Left hip x-rays done back in 2016 came out normal; repeat left hip x-rays done in May 2023 came out normal as well Advised that his hip pains may actually be referred pain from his lower back, especially with his normal hip x-rays from last year (7) Drug-induced constipation: Code(s): K59.03 - Drug induced constipation Category: Medical Plan: He is again encouraged on increased oral fluids and dietary fiber intake Continue OTC stool softeners PRN - he states that they have been helping him adequately so far (8) Vitamin D deficiency: Code(s): E55.9 - Vitamin D deficiency, unspecified Category: Medical Plan: Continue Vitamin D3 4000 units QD (9) Lymphedema: Code(s): I89.0 - Lymphedema, not elsewhere classified Category: Medical Plan: He is reminded again to continue with leg elevation as often as he can to help minimize his edema; advised again that compression stockings/socks can also help He is reminded as well that his lymphedema is most likely related to his weight and his sedentary lifestyle - his renal function was normal on his recent labs in May 2024 (10) Insomnia: Code(s): G47.00 - Insomnia, unspecified Category: Medical Qualifiers: Insomnia type: unspecified Qualified Code(s): G47.00 - Insomnia, unspecified Plan: Sleep hygiene reinforced (11) Anxiety: Code(s): F41.9 - Anxiety disorder, unspecified Category: Medical Plan: Continue Alprazolam 1 mg TID PRN - Rx is being prescribed and managed by psychiatry (12) Depression: Code(s): F32.9 - Major depressive disorder, single episode, unspecified Category: Medical Qualifiers: Active/Remission status: currently active Depression Type: major depressive disorder Major depression episode severity: unspecified Major depression recurrence: recurrent Qualified Code(s): F33.9 - Major depressive disorder, recurrent, unspecified Plan: Continue Escitalopram 20 mg QD Follow up with psychiatry as scheduled (13) Morbid obesity with BMI of 45.0-49.9, adult: Code(s): E66.01 - Morbid (severe) obesity due to excess calories; Z68.42 - Body mass index [BMI] 45.0-49.9, adult Category: Medical Plan: Reinforced diet; exercise and weight loss are likely unrealistic in this patient due to his multiple comorbidities and physical condition He also has not shown any consistent motivation at all to lose weight in the past Plan Follow up in 3 months Orders: Referrals Endocrinology Referral E11.65 - Type 2 diabetes mellitus with hyperglycemia Medications: Changed From sitagliptin phosphate (Januvia) 25 mg PO DAILY To sitagliptin phosphate 100 mg PO DAILY 90 tabs 1RF 90 days From lisinopril 20 mg PO DAILY 90 days 90 tabs 1RF I10 - Essential (primary) hypertension To lisinopril 30 mg PO DAILY 90 tabs 1RF 90 days I10 - Essential (primary) hypertension Refilled oxycodone 15 mg PO Q8H PRN 42 tabs 0RF severe pain 14 days M51.06 - Intervertebral disc disorders with myelopathy, lumbar region
== END 2024-12-02 15:07 | disposition home or self-care (01) ==
LOC: HO.HMCH 14:18
PROVIDERS: PCP Internal Medicine; Visit Provider Internal Medicine
DX: E78.2 Mixed hyperlipidemia (principal); E11.65 Type 2 diabetes mellitus with hyperglycemia; I10 Essential (primary) hypertension; K80.20 Calculus of gallbladder without cholecystitis without obstruction; M51.362 Other intervertebral disc degeneration, lumbar region with discogenic back pain and lower extremity pain; M19.91 Primary osteoarthritis, unspecified site; K59.03 Drug induced constipation; E55.9 Vitamin D deficiency, unspecified; I89.0 Lymphedema, not elsewhere classified; G47.00 Insomnia, unspecified; E66.01 Morbid (severe) obesity due to excess calories; Z68.42 Body mass index [BMI] 45.0-49.9, adult; F41.9 Anxiety disorder, unspecified; F33.9 Major depressive disorder, recurrent, unspecified

== ENCOUNTER → 2024-12-02 14:17 | Outpatient (BNVA) | payer OTHER, SELFPAY | PROVIDERS: PCP Internal Medicine; Visit Provider Internal Medicine | DX: E78.2 Mixed hyperlipidemia (principal); E11.65 Type 2 diabetes mellitus with hyperglycemia; I10 Essential (primary) hypertension; K80.20 Calculus of gallbladder without cholecystitis without obstruction; M51.362 Other intervertebral disc degeneration, lumbar region with discogenic back pain and lower extremity pain; M19.91 Primary osteoarthritis, unspecified site; K59.03 Drug induced constipation; E55.9 Vitamin D deficiency, unspecified; I89.0 Lymphedema, not elsewhere classified; G47.00 Insomnia, unspecified; F41.9 Anxiety disorder, unspecified; F33.9 Major depressive disorder, recurrent, unspecified; E66.01 Morbid (severe) obesity due to excess calories; M51.06 Intervertebral disc disorders with myelopathy, lumbar region; Z68.42 Body mass index [BMI] 45.0-49.9, adult | CPT/HCPCS: 96127; 99212 ==